=== PATIENT | male | born 1950 | race Caucasian/White ===

== ENCOUNTER 2018-05-21 20:15 | Emergency (ER) | payer MEDICARE, SELFPAY ==
[2018-05-21 20:16] VITALS: BP 133/74; PULSE 78; RESP 14; TEMP 36.8; O2SAT 95; BMI 26.9
[2018-05-21 21:24] LABS: Absolute Lymphocyte Count 0.83 X10^3/ul (0.83-4.51); Absolute Neutrophil Count 6.5 X10^3/uL (2.0-7.7); Basophil# 0.02 X10^3/uL; Basophil% 0.2 % (0-1); Eosinophils% 1.2 % (0-5); Hematocrit 33.3 % (40-54); Hemoglobin 11.1 g/dl (13.0-16.5); Lymphocyte # 0.83 X10^3/ul (4.0); Lymphocyte % 10.3 % (19-41); Mean Corp Hgb Conc 33.3 g/gl (32-36); Mean Corpuscular Hgb 29.4 pg (27.0-32.0); Mean Corpuscular Volume 88.3 fL (80-94); Mean Platelet Vol. 8.9 fl (6.2-12.0); Monocyte% 7.4 % (0-10); Neutrophil % 80.8 % (47-70); Platelet Count 324 K/mm3 (150-450); RBC Distribution Width CV 13.9 % (11.6-14.6); Red Blood Count 3.77 M/mm3 (4.6-6.2); White Blood Count 8.1 K/mm3 (4.4-11.0)
[2018-05-21 21:26] LABS: POSITIVE COUNT NO; POSITIVE DIFFERENTIAL NO; POSITIVE MORPHOLOGY NO
[2018-05-21 21:39] LABS: ALB/GLOB Ratio 0.9 RATIO (0.9-2.4); AST(SGOT) 7 U/L (15-37); Alanine Aminotransfer ALT/SGPT 14 U/L (16-61); Albumin, Serum 3.3 g/dL (3.2-5.0); Alkaline Phosphatase 62 U/L (45-117); Anion Gap 6 (5-15); BUN 14 mg/dL (7-18); BUN/Creat Ratio 17.9 RATIO (10-20); Calcium,Total 8.5 mg/dL (8.5-10.1); Chloride 98 mmol/L (98-107); Creatinine, Serum 0.78 mg/dL (0.70-1.30); EST Glomerular Filtration Rate 105 mL/min (>60); Est Glom Filt Rate - Afr Amer 127 mL/min (>60); Estimated Creatinine Clearance 83.34 ml/min; Globulin 3.6 g/dL (2.2-4.2); Glucose 98 mg/dL (74-106); Potassium 4.6 mmol/L (3.5-5.1); Protein, Total 6.9 g/dL (6.4-8.2); Sodium Level 133 mmol/L (136-145)
[2018-05-21] MEDS: Baclofen 10 MG Tablet 5 MG PO ×2 (21:53→22:43)
--- NOTE | 2018-05-21 22:27 | ED.DCSUM_ITS ---
- ER Visit Summary Date of Service: 05/21/18 Chief Complaint: Muscle spasms History of Present Illness: Patient presents with muscle spasms in the legs last night now he has some more spasms. These are chronic and recurrent secondary to what is thought to be radiation therapy, however they are worse than normal. No fever chills no chest pain shortness of breath no weakness or confusion. Physical Examination: Patient appears chronically ill, he has a regular rate and rhythm no respiratory distress he is a soft nontender abdomen. He has no back tenderness. He has no current spasms but demonstrated me what is present looks like, there is somewhat Coreform in nature. Emergency Department Course and Treatment: Patient has an unremarkable workup. He was given baclofen with significant improvement. He will be discharged in stable condition to follow-up with his neurologist. Discharge stable condition Impression: [Muscle spasms] This note was generated with [employer] dictation software. It may contain incorrect words, spelling, and punctuation that were not noted in review of the chart prior to signing ED Disposition - Plan for ED Patient: Disposition: Home or Assisted Living Chief Complaint: Upper Extremity Injury Instructions: Muscle Spasm Prescriptions: Baclofen 5 mg PO BID #20 tab Referrals: Brandan Pino MD [Primary Care Provider] - 3-5 Days
[2018-05-22 00:01] VITALS: BP 133/75; PULSE 97; RESP 14; O2SAT 97
[2018-05-22 00:02] VITALS: TEMP 36.8
[2018-05-22] MEDS: Orphenadrine 60 MG/2 ML Ampul 30 MG IM (00:33)
== END 2018-05-22 00:48 | disposition home or self-care (01) ==
PROVIDERS: Emergency Provider Emergency Medicine; Family Provider Family Medicine; PCP Family Medicine
DX: M62.838 Other muscle spasm (principal); M19.90 Unspecified osteoarthritis, unspecified site; Z72.0 Tobacco use
CPT/HCPCS: 80053; 85025; 96372; 99283

== ENCOUNTER 2018-05-30 18:03 | Inpatient (IN) | payer MEDICARE, SELFPAY ==
[2018-05-30] VITALS (10 sets, daily range): BP systolic 105–147; BP diastolic 71–90; PULSE 91–104; RESP 12–28; TEMP 36.5–36.6; O2SAT 80–98; BMI 26.9; BMI 27.0; BMI 28.0
--- NOTE | 2018-05-30 18:24 | EKG12_ITS ---
Test Reason : SOB Blood Pressure : / mmHG Vent. Rate : 090 BPM Atrial Rate : 090 BPM P-R Int : 188 ms QRS Dur : 074 ms QT Int : 352 ms P-R-T Axes : 044 -14 021 degrees QTc Int : 430 ms Normal sinus rhythm Low voltage QRS Inferior infarct , age undetermined Abnormal ECG Confirmed by PIETRO CIFUENTES, MANDY ([id number]), editor department BEE KIMBROUGH ([id number] on 06/01/2018 1:29:20 PM Referred By: Confirmed By:MANDY WESTBROOK MD
--- NOTE | 2018-05-30 18:29 | ED.DCSUM_ITS ---
- ER Visit Summary Date of Service: 05/30/18 Chief Complaint: Shortness of breath History of Present Illness: The patient is a 67 M presenting with shortness of breath. He states this has been ongoing for the past week it has been worse today. He states he is also coughing up blood. He denies chest pain or chest pressure. Denies fever. He has a history of throat cancer status post radiation and chemotherapy. He is in remission. He is on Plavix. He denies hematemesis or melena. Physical Examination: Vitals are stable. Pulse ox 80% on room air. Patient is afebrile. Alert no acute distress. HEENT exam is unremarkable. Neck is supple. Lungs are rhonchorous bilaterally. Heart is regular rate and rhythm. Abdomen is soft nontender nondistended. Extremities are unremarkable. No edema Skin is warm and dry. No focal neurologic deficit. Remainder of exam is unremarkable. Emergency Department Course and Treatment: He is given albuterol, Atrovent aerosols. CBC shows hemoglobin 9.7. Chemistries show sodium 131. Troponin is negative. Lactic acid is normal. Blood cultures were sent. Chest x-ray shows left-sided infiltrate. He was given Rocephin and Zithromax IV. Discussed with the hospitalist for admission. Disposition: Admission Impression: Community acquired pneumonia, hypoxia This note was generated with [employer] dictation software. It may contain incorrect words, spelling, and punctuation that were not noted in review of the chart prior to signing ED Disposition - Plan for ED Patient: Chief Complaint: Shortness of Breath Referrals: Brandan Pino MD [Primary Care Provider] -
[2018-05-30] MEDS: Ipratropium/Albuterol Sulfate 3 ML AMPUL.NEB INHALATION (18:32)
[2018-05-30] MEDS: Albuterol 2.5 MG/3 ML VIAL.NEB. INHALATION ×3 (18:32→18:59)
--- NOTE | 2018-05-30 18:35 | RAD_ITS ---
STUDY: X-RAY CHEST REASON FOR EXAM: Male, 67 years old. Chest pain TECHNIQUE: AP portable COMPARISON: None. FINDINGS: Lungs are hyperinflated and there is diffuse interstitial thickening in the mid and lower lung zones with emphysematous changes in the upper lobes. There is asymmetrically increased density in the left upper lobe and lingula peripherally possibly representing focal infiltrate. There is no demonstrated pleural abnormality. Normal size heart. Normal mediastinum and juan. Normal visualized pulmonary arteries. Mildly calcified aortic arch and descending thoracic aorta. Normal visualized thoracic spine. Normal visualized ribs, clavicles, and shoulders. There is no demonstrated abnormality of the visualized soft tissue structures of the upper abdomen. RAD/Chest 1 View (Portable) IMPRESSION: COPD. Increased density peripherally in the left upper lobe and lingula possibly representing focal infiltrate. CT would be useful for more definitive evaluation Electronically Signed: Brandan Walters MD at 19:13 EDT , Service support ,
[2018-05-30 18:49] LABS: Absolute Lymphocyte Count 0.54 X10^3/ul (0.83-4.51); Absolute Neutrophil Count 5.7 X10^3/uL (2.0-7.7); Basophil# 0.02 X10^3/uL; Basophil% 0.3 % (0-1); Eosinophil# 0.13 X10^3/uL; Eosinophils% 1.8 % (0-5); Hematocrit 30.1 % (40-54); Hemoglobin 9.7 g/dl (13.0-16.5); Lymphocyte # 0.54 X10^3/ul (4.0); Lymphocyte % 7.6 % (19-41); Mean Corp Hgb Conc 32.2 g/gl (32-36); Mean Corpuscular Hgb 28.9 pg (27.0-32.0); Mean Corpuscular Volume 89.6 fL (80-94); Mean Platelet Vol. 8.6 fl (6.2-12.0); Monocyte# 0.65 X10^3/uL; Monocyte% 9.2 % (0-10); Neutrophil # 5.69 X10^3/uL (2.7-7.7); Neutrophil % 80.7 % (47-70); Platelet Count 311 K/mm3 (150-450); RBC Distribution Width CV 14.4 % (11.6-14.6); RBC Distribution Width SD 46.7 fl (35.1-43.9); Red Blood Count 3.36 M/mm3 (4.6-6.2); White Blood Count 7.1 K/mm3 (4.4-11.0)
[2018-05-30 18:50] LABS: Differential Indicated SCAN CRITERIA MET; POSITIVE COUNT NO; POSITIVE DIFFERENTIAL YES; POSITIVE MORPHOLOGY NO
[2018-05-30 18:56] LABS: Prothrombin Time (Protime)PT. 13.6 SECONDS (11.7-14.9)
[2018-05-30 18:57] LABS: Partial Thromboplast Time 37.7 Seconds (24.1-36.2)
[2018-05-30 19:02] LABS: Lactic Acid 1.4 mmol/L (0.4-2.0)
[2018-05-30 19:04] LABS: Anion Gap 6 (5-15); BUN 11 mg/dL (7-18); BUN/Creat Ratio 13.6 RATIO (10-20); Calcium,Total 8.2 mg/dL (8.5-10.1); Chloride 97 mmol/L (98-107); Creatinine, Serum 0.81 mg/dL (0.70-1.30); EST Glomerular Filtration Rate 101 mL/min (>60); Est Glom Filt Rate - Afr Amer 122 mL/min (>60); Estimated Creatinine Clearance 102.89 ml/min; Glucose 101 mg/dL (74-106); Potassium 4.1 mmol/L (3.5-5.1); Sodium Level 131 mmol/L (136-145)
[2018-05-30 19:32] LABS: Bacteria 0 SEEN /hpf (None Seen); Mucous, Urine 0 SEEN /hpf (<or=2+); Red Blood Cells-Urine 0 SEEN /hpf (0-5); White Blood Cells 0 SEEN /hpf (0-5)
--- NOTE | 2018-05-30 19:39 | HP.PCM_ITS ---
Problem List (1) Pneumonia Status: Acute Qualifiers: Pneumonia type: due to unspecified organism Laterality: left Lung location: upper lobe of lung Qualified Code(s): J18.1 - Lobar pneumonia, unspecified organism (2) Anemia Status: Acute Qualifiers: Anemia type: iron deficiency (3) Hemoptysis, unspecified Status: Acute (4) Throat cancer Status: Chronic (5) HTN (hypertension) Status: Chronic Qualifiers: Hypertension type: essential hypertension Qualified Code(s): I10 - Essential (primary) hypertension (6) HLD (hyperlipidemia) Status: Chronic Qualifiers: Hyperlipidemia type: unspecified Qualified Code(s): E78.5 - Hyperlipidemia, unspecified (7) Hypothyroidism Status: Chronic Qualifiers: Hypothyroidism type: unspecified Qualified Code(s): E03.9 - Hypothyroidism, unspecified (8) Chronic pain syndrome Status: Chronic (9) Carotid arterial disease Status: Chronic Qualifiers: Carotid artery disease type: unspecified Laterality: left Qualified Code(s): I77.9 - Disorder of arteries and arterioles, unspecified (10) TIA (transient ischemic attack) Status: Chronic (11) Oropharyngeal dysphagia Status: Chronic History of Present Illness Date of Admission: 05/30/18 Chief Complaint: Cough, dyspnea, hemoptysis The patient is a 67 /o M w/ PMHx: Chronic Pain Syndrome, History of Throat CA s/p chemotherapy and radiation remotely noting he has been in remission, Prior TIA versus CVA without deficits, Chronic Normocytic Anemia, HTN, HLD, Anxiety and Depression, Hypothyroidism, Carotid Disease s/p L CEA ~ 1.5 years prior to current presentation who presents to the [facility] ED on 05/30/18 with history of progressively worsening dyspnea, mildly productive cough w/ bright red blood tinged sputum, worse with increased exertion without any associated fever or chills. Work-up in the ED included T 98, heart rate 104, BP 147/90, respiratory rate initially 28-->12, 80% on room air--> 93% on 2 L nasal cannula, CBC with WBC 7.1, hemoglobin 9.7, platelet 311 with left shift, coags with PT 13.6, INR 1, PTT 37.7, BMP with sodium 131, chloride 97, lactic acid 1.4, troponin <0.015, Bld Cx pending, chest x-ray with chronic COPD changes, increased density peripheral in the left upper lobe and lingula suspicious for infiltrate. In the ED patient administered dunoebs, albuterol, rocephin and azithromycin. Past Medical History Past Medical History (Chronic Problems): Chronic Problems HTN (hypertension) (Chronic) HLD (hyperlipidemia) (Chronic) Hypothyroidism (Chronic) Chronic pain syndrome (Chronic) Carotid arterial disease (Chronic) TIA (transient ischemic attack) (Chronic) Oropharyngeal dysphagia (Chronic) Throat cancer (Chronic) Allergies No Known Allergies Allergy (Verified 05/21/18 20:18) Home Medications: Ambulatory Orders Medication Instructions Recorded Acetaminophen Liquid [Tylenol 5 ml PO DAILY 05/30/18 Liquid] Albuterol Aerosols [Ventolin 2.5 mg INHALATION Q4HWA.RT 05/30/18 Aerosols] Aspirin/Sod Bicarb/Citric Acid 324 mg PO DAILY 05/30/18 [Connie[place] Blue Tab Eff] Atorvastatin Calcium [Lipitor] 40 mg PO DAILY 05/30/18 Baclofen 5 mg PO BID 05/30/18 Carbamazepine [Carbamazepine ER] 100 mg PO QHS 05/30/18 Clopidogrel Bisulfate [Plavix] 75 mg PO DAILY 05/30/18 Ferrous Sulfate 325 mg PO DAILY 05/30/18 Fluticasone 0.05% [Flonase Nasal 2 spray NASAL DAILY 05/30/18 [place]] Gabapentin 6 ml PO QHS 05/30/18 Levothyroxine [Synthroid] 75 mcg PO DAILY 05/30/18 Lisinopril [Zestril] 40 mg PO DAILY 05/30/18 Mirtazapine 15 mg PO QHS 05/30/18 Oxycodone [Oxyir] 10 - 20 mg PO TID 05/30/18 Sertraline HCl [Zoloft] 200 mg PO DAILY 05/30/18 Psychiatric History: Anxiety, Depression Lives: Spouse/ Significant Other Smoking Status: Current every day smoker Tobacco Use: Cigarettes - 1 ppd since teen. Alcohol: Occasional - 1-2 shots crown daily. Drugs: None - *Family History Maternal History Items: - - Patient notes a paternal family history of hypertension and dementia. Paternal History Items: - - Patient notes a paternal family history of diabetes, hypertension, heart disease. Review of Systems Constitutional: Reports: Anorexia, Malaise, Weakness, Fatigue. Denies: Chills, Fever, Weight Change HEENT: Denies: Head Aches, Sinus Congestion, Sinus Drainage Cardiovascular: Denies: Chest Pain, Palpitations Respiratory: Reports: Cough, Hemoptysis, Shortness of Breath, Shortness of breath at rest, Shortness of breath upon exertion, Sputum production Gastrointestinal: Denies: Abdominal Pain, Nausea, Vomiting Genitourinary: Denies: Dysuria Musculoskeletal: Reports: Back Pain. Denies: Joint Pain, Joint Tenderness Skin: Denies: Rash, Wounds Neurological: Denies: Numbness, Tingling, Focal weakness Psychiatric: Reports: Anxiety, Depression. Denies: Homicidal Ideations, Suicidal Ideations Hematologic/ Lymphatic: Reports: Anemia, Easy Bruising, Easy Bleeding VTE Information - Inpt Only VTE Present on Admission: No VTE Mechan Device Prophylaxis: SCD's VTE Pharm Prophylaxis ordered?: No Patient Problems: Active and Suspected Problems Pneumonia (Acute) Hemoptysis, unspecified (Acute) Anemia (Acute) Subjective: Seated upright in the ED bed, mildly fatigued appearance, NAD. Objective: Physical Examination: General: awake, alert, oriented x 3 and cooperative, seated upright in the ED bed, improved from initial appearance, had prior conversational dyspnea, tachypnea and accessory muscle usage per ED, improved now. Skin: normal color, turgor, no icterus, cyanosis. HEENT: AT/NC, EOMI, PERRLA, mildly dry MM, no carotid bruits or JVD noted. Lungs: Decreased BS BL bases, coarse, mild effort, occasional end expiratory wheeze noted, improved respiratory status, prior per ED upon presentation increased RR, accessory muscle usage and accessory muscle usage. Heart: regular rate and rhythm; no gallop, rub audible. Abdomen: soft, overweight, NTTP, ND, normal BS, no HSM. Extremities: no cyanosis, clubbing, BL LE mild ankle edema. Neurological: patient awake, alert, oriented x 3; cognitive function intact; pupils equally reactive to light and accomodation; cranial nerves II-XII grossly normal, moving all 4 extremities, no focal deficits, strength moderately to severely globally decreased. Psychiatric: affect appears mildly fatigued, no acute evidence of depressive or anxiety feelings. - Physical Exam Vital Signs Temp Pulse Resp BP Pulse Ox 98 F 95 12 127/84 H 93 05/30/18 18:04 05/30/18 19:00 05/30/18 19:00 05/30/18 18:14 05/30/18 18:14 Oxygen Flow Rate (L/min) 2 Oxygen Delivery Method Nasal Cannula Weight: 210 lb Body Mass Index (BMI) 26.9 Laboratory Tests Past 24 Hrs 05/30/18 05/30/18 05/30/18 18:26 18:26 18:26 WBC 7.1 RBC 3.36 L Hgb 9.7 L Hct 30.1 L MCV 89.6 MCH 28.9 MCHC 32.2 RDW 14.4 RDW Differential 46.7 H Plt Count 311 MPV 8.6 Immature Gran % (Auto) 0.400 Neut % (Auto) 80.7 H Lymph % (Auto) 7.6 L [place] % (Auto) 9.2 Eos % (Auto) 1.8 Baso % (Auto) 0.3 Absolute Neuts (auto) 5.7 Absolute Lymphs (auto) 0.54 L Total Counted Pending PT 13.6 INR 1.0 APTT 37.7 H Sodium 131 L Potassium 4.1 Chloride 97 L Carbon Dioxide 28.0 Anion Gap 6 BUN 11 Creatinine 0.81 Estim Creat Clear Calc 102.89 Est GFR (MDRD) Af Amer 122 Est GFR (MDRD) Non-Af 101 BUN/Creatinine Ratio 13.6 Glucose 101 Lactic Acid Calcium 8.2 L Troponin I < 0.015 05/30/18 18:26 WBC RBC Hgb Hct MCV MCH MCHC RDW RDW Differential Plt Count MPV Immature Gran % (Auto) Neut % (Auto) Lymph % (Auto) [place] % (Auto) Eos % (Auto) Baso % (Auto) Absolute Neuts (auto) Absolute Lymphs (auto) Total Counted PT INR APTT Sodium Potassium Chloride Carbon Dioxide Anion Gap BUN Creatinine Estim Creat Clear Calc Est GFR (MDRD) Af Amer Est GFR (MDRD) Non-Af BUN/Creatinine Ratio Glucose Lactic Acid 1.4 Calcium Troponin I Assessment/Plan All Active Problems Pneumonia (Acute) Hemoptysis, unspecified (Acute) Anemia (Acute) Spasm (Acute) The patient is a 67 /o M w/ PMHx: Chronic Pain Syndrome, History of Throat CA s/p chemotherapy and radiation remotely noting he has been in remission, Prior TIA versus CVA without deficits, Chronic Normocytic Anemia, HTN, HLD, Anxiety and Depression, Hypothyroidism, Carotid Disease s/p L CEA ~ 1.5 years prior to current presentation who presents to the [facility] ED on 05/30/18 with history of progressively worsening dyspnea, mildly productive cough w/ bright red blood tinged sputum, worse with increased exertion without any associated fever or chills. (1) Acute Hypoxic Respiratory Failure secondary to ? CAP w/ hemoptysis w/ underlying throat CA history s/p radiation w/ Suspected Malignancy given presentation: ED included T 98, heart rate 104, BP 147/90, respiratory rate initially 28-->12, 80% on room air--> 93% on 2 L nasal cannula, CBC with WBC 7.1, hemoglobin 9.7, platelet 311 with left shift, coags with PT 13.6, INR 1, PTT 37.7, BMP with sodium 131, chloride 97, lactic acid 1.4, troponin <0.015, Bld Cx pending, chest x-ray with chronic COPD changes, increased density peripheral in the left upper lobe and lingula suspicious for infiltrate. Will admit to [facility], maintain on oxygen with wean as tolerated to room air, continue ATC duonebs, PRN albuterol, maintained on IV Rocephin and Azithromycin pending CT scan as more suspicious for possible metastatic disease given history and presentation, HOB, IS parameters w/ pending sputum cultures and urine antigens as well as respiratory panel. Bld cx x 2 obtained in the ED. Given history of throat CA, suspicious presentation for malignancy given afebrile, no marked WBC elevation, Hgb decrease w/ hemoptysis on Plavix thus will hold plavix and obtain CT chest to further evaluate as there is concern for possible recurrence given presentation. (2) Normocytic Anemia, Acute on Chronic, Fe Deficiency Anemia: Admission Hgb 9.7, most recent prior 05/21/18 11.1, poor intake recently, will hydrate, repeat Hgb in AM, monitor #1, holding plavix as noted. Continue home Fe supplementation. (3) Chronic Oropharyngeal Dysphagia: Notes secondary to radiation some difficulty with certain solids, declined mechanical soft, continue liquid versions per his home regimen, speech consulted. (4) Anxiety and Depression: Maintain on home sertraline, Valium, mirtazapine regimen. (5) Chronic pain syndrome: Maintain on home baclofen, gabapentin, Valium, oxycodone regimen. (6) Hypothyroidism: Continue home synthroid regimen. (7) Hypertension: Continue home regimen including lisinopril, PRN hydralazine. (8) Hyperlipidemia: Continue home statin regimen. (9) Carotid Disease: s/p R CEA 1.5 years prior, holding plavix, continue BP regimen, statin. (10) History TIA versus CVA: Holding plavix, continue BP regimen and statin. (11) Tobacco Abuse: Encouraged cessation, inpatient consultation per RT, NR if desired. (12) DVT Prophylaxis: SCDs, defer chemoprophylaxis given hemoptysis. Code Visit Inpatient E&M: 87033 Init Hosp L3
[2018-05-30 19:54] LABS: Differential Comment SCANNED
[2018-05-30] MEDS: Ceftriaxone 1 GM/50 ML BAG IV (19:54)
[2018-05-30 19:57] LABS: Color, Urine Yellow (Yellow); Glucose, Dipstick Normal (Normal); Ketone-Dipstick Negative (Negative); Leukocyte Esterase-Dipstick 25 /ul (Negative); Nitrite-Dipstick Negative (Negative); Occult Blood-Urine Negative /ul (Negative); Protein-Dipstick 15 mg/dl (Negative); Urine Bilirubin Dipstick Negative (Negative); Urine Clarity Clear (Clear); Urine Urobilinogen Normal (Normal)
[2018-05-30 20:09] LABS: Squamous Epithelial Cells - UA 0-5 SEEN /hpf (0-5)
--- NOTE | 2018-05-30 20:45 | CT_ITS ---
STUDY: CT CHEST WITHOUT CONTRAST REASON FOR EXAM: Male, 67 years old. Dyspnea and hemoptysis RADIATION DOSAGE (If Supplied By Facility): CTDIvol = ( 14.77 ) mGy, DLP = ( 631.29 ) mGycm TECHNIQUE: Transaxial imaging was performed without the administration of intravenous contrast material. Individualized dose optimization techniques were used for this CT. COMPARISON: None. FINDINGS: Narrowed glottic airway in association with thickening of the vocal cords greater on the right There is mild interstitial thickening most pronounced in the lower lobes with patchy areas of groundglass opacity in association with thickening of the bronchial maldonado in the lower lobes.. There is no demonstrated pleural abnormality. The heart is enlarged. There is a large masslike density within the lingula extending into and infiltrating the left hilum and mid mediastinum highly suspicious for neoplasm with distal obstructive atelectasis.. Normal unenhanced pulmonary arteries. Atherosclerotic changes of the aorta without evidence for aneurysm. Dorsal spine demonstrates spondylosis Small hiatal hernia is present Tiny cyst noted within the left lobe of the liver. Nonspecific splenomegaly CT/Chest without Contrast IMPRESSION: Chronic interstitial and emphysematous changes. Large infiltrative masslike density within the superior lingula extending into an infiltrating the left hilum and mid mediastinum consistent with neoplasm and possible distal obstructive atelectasis.. Clinical correlation recommended Electronically Signed: Brandan Walters MD at 23:00 EDT , Service support ,
[2018-05-30 21:26] LABS: Ferritin 48 ng/mL (26-388); Iron 220 ug/dL (65-175); Iron Binding Capacity,Total 296 ug/dL (250-450); Magnesium 1.9 mg/dL (1.6-2.6); PERCENT IRON SATURATION 74.3 % (15.0-55.0); Phosphorus 3.5 mg/dL (2.5-4.9)
[2018-05-30 21:46] LABS: Vitamin B12 655 pg/mL (211-911)
[2018-05-30] MEDS: guaiFENesin 1,200 MG Tablet 1200 MG PO (22:31)
[2018-05-30] MEDS: Mirtazapine 15 MG Tablet PO (22:32)
[2018-05-30] MEDS: Baclofen 10 MG Tablet 5 MG PO (22:32)
[2018-05-30] MEDS: Atorvastatin Calcium 40 MG Tablet PO (22:32)
[2018-05-30] MEDS: Famotidine 20 MG Tablet PO (22:32)
[2018-05-30] MEDS: 0.9% Normal Saline 1,000 ML 125 ML IV (22:33)
[2018-05-30] MEDS: oxyCODONE 5 MG Tablet PO (23:28)
[2018-05-30] MEDS: GABAPENTIN 250 MG/5 ML SOLUTION 300 MG PO (23:45)
[2018-05-31] MEDS: Albuterol 2.5 MG/3 ML VIAL.NEB. INHALATION (01:28)
[2018-05-31 01:30] VITALS: PULSE 71; RESP 16; O2SAT 94
[2018-05-31 04:30] VITALS: BP 105/55; PULSE 72; RESP 18; TEMP 36.2; O2SAT 94
[2018-05-31] MEDS: Levothyroxine 75 MCG Tablet PO (06:08)
[2018-05-31] MEDS: 0.9% Normal Saline 1,000 ML 125 ML IV ×3 (06:08→23:17)
[2018-05-31] MEDS: oxyCODONE 5 MG Tablet PO ×3 (06:08→21:09)
[2018-05-31 07:01] LABS: Absolute Lymphocyte Count 0.45 X10^3/ul (0.83-4.51); Absolute Neutrophil Count 4.7 X10^3/uL (2.0-7.7); Basophil# 0.02 X10^3/uL; Basophil% 0.3 % (0-1); Eosinophil# 0.15 X10^3/uL; Eosinophils% 2.5 % (0-5); Hematocrit 27.8 % (40-54); Hemoglobin 8.8 g/dl (13.0-16.5); Lymphocyte # 0.45 X10^3/ul (4.0); Lymphocyte % 7.6 % (19-41); Mean Corp Hgb Conc 31.7 g/gl (32-36); Mean Corpuscular Hgb 29.5 pg (27.0-32.0); Mean Corpuscular Volume 93.3 fL (80-94); Mean Platelet Vol. 8.7 fl (6.2-12.0); Monocyte# 0.55 X10^3/uL; Monocyte% 9.3 % (0-10); Neutrophil # 4.67 X10^3/uL (2.7-7.7); Neutrophil % 79.5 % (47-70); Platelet Count 319 K/mm3 (150-450); RBC Distribution Width CV 14.2 % (11.6-14.6); RBC Distribution Width SD 46.4 fl (35.1-43.9); Red Blood Count 2.98 M/mm3 (4.6-6.2); White Blood Count 5.9 K/mm3 (4.4-11.0)
[2018-05-31 07:02] LABS: Differential Indicated SCAN CRITERIA MET; POSITIVE COUNT NO; POSITIVE DIFFERENTIAL YES; POSITIVE MORPHOLOGY NO
[2018-05-31 07:08] LABS: Differential Comment SCANNED
[2018-05-31 07:13] LABS: Anion Gap 9 (5-15); BUN 11 mg/dL (7-18); BUN/Creat Ratio 15.2 RATIO (10-20); Calcium,Total 8.1 mg/dL (8.5-10.1); Chloride 102 mmol/L (98-107); Creatinine, Serum 0.72 mg/dL (0.70-1.30); EST Glomerular Filtration Rate 115 mL/min (>60); Est Glom Filt Rate - Afr Amer 139 mL/min (>60); Estimated Creatinine Clearance 83.34 ml/min; Glucose 95 mg/dL (74-106); Potassium 4.7 mmol/L (3.5-5.1); Sodium Level 138 mmol/L (136-145)
[2018-05-31 07:33] VITALS: O2SAT 94
[2018-05-31 08:18] VITALS: BP 116/62; PULSE 88; RESP 18; TEMP 36.8; O2SAT 95
--- NOTE | 2018-05-31 08:23 | PCM.CONS.GEN ---
Reason for Consult Date of Consultation: 05/31/18 Reason for Consultation: Lung mass History of Present Illness: The patient is a 67-year-old male, with a history as outlined below, who presented to the emergency department on May 30 with complaints of progressive dyspnea and hemoptysis. The patient does have a history of head/neck cancer, for which he is status post chemoradiation. He also has a history of bilateral carotid artery stenosis and is status post left-sided carotid endarterectomy. He is on Plavix as an outpatient. The patient reports that his head and neck cancer has been in remission and he was last seen by his oncologist approximately 6 or 7 years ago at the [facility]. The patient does have an active smoking history of 1 pack/day x 50 years. He also drinks hard liquor daily. 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 He does have baseline exertional shortness of breath, but is never been evaluated by a truck driver heavy, nor has he ever undergone pulmonary function testing previously. He does not utilize any maintenance inhalers at his baseline. He reports that over the last week he has noticed blood streaked sputum and worsening shortness of breath. On presentation to the emergency department, the patient was noted to be afebrile and hemodynamically stable. Laboratory evaluation revealed evidence of a normocytic anemia without evidence of leukocytosis. INR was noted be 1.0. Chemistry profile was notable for a sodium of 131 and a chloride of 97. Serum lactate was within normal limits. Urinalysis revealed no evidence concerning for infection. Plain film chest imaging revealed findings concerning for a lingula/left upper lobe airspace opacity. A follow-up CT chest without contrast was obtained which revealed bilateral emphysematous changes and a masslike density within the lingula with extension into the hilum. The patient was started on aerosol treatments along with ceftriaxone and azithromycin. He was subsequently admitted to the medical surgical floor for further evaluation. Past Medical History Past Medical History (Chronic Problems): Chronic Problems HTN (hypertension) (Chronic) HLD (hyperlipidemia) (Chronic) Hypothyroidism (Chronic) Chronic pain syndrome (Chronic) Carotid arterial disease (Chronic) TIA (transient ischemic attack) (Chronic) Oropharyngeal dysphagia (Chronic) Throat cancer (Chronic) Allergies No Known Allergies Allergy (Verified 05/21/18 20:18) Home Medications: Ambulatory Orders Medication Instructions Recorded Acetaminophen Liquid [Tylenol 5 ml PO DAILY 05/30/18 Liquid] Albuterol Aerosols [Ventolin 2.5 mg INHALATION Q4HWA.RT 05/30/18 Aerosols] Aspirin/Sod Bicarb/Citric Acid 324 mg PO DAILY 05/30/18 [[place] Blue Tab Eff] Atorvastatin Calcium [Lipitor] 40 mg PO DAILY 05/30/18 Baclofen 5 mg PO BID 05/30/18 Carbamazepine [Carbamazepine ER] 100 mg PO QHS 05/30/18 Clopidogrel Bisulfate [Plavix] 75 mg PO DAILY 05/30/18 Ferrous Sulfate 325 mg PO DAILY 05/30/18 Fluticasone 0.05% [Flonase Nasal 2 spray NASAL DAILY 05/30/18 [place]] Gabapentin 6 ml PO QHS 05/30/18 Levothyroxine [Synthroid] 75 mcg PO DAILY 05/30/18 Lisinopril [Zestril] 40 mg PO DAILY 05/30/18 Mirtazapine 15 mg PO QHS 05/30/18 Oxycodone [Oxyir] 10 - 20 mg PO TID 05/30/18 Sertraline HCl [Zoloft] 200 mg PO DAILY 05/30/18 Psychiatric History: Anxiety, Depression Lives: Spouse/ Significant Other Smoking Status: Current every day smoker Tobacco Use: Cigarettes - 1 ppd since teen. Alcohol: Occasional - 1-2 shots crown daily. Drugs: None - *Family History Maternal History Items: - - Patient notes a paternal family history of hypertension and dementia. Paternal History Items: - - Patient notes a paternal family history of diabetes, hypertension, heart disease. Review of Systems Constitutional: Denies: Chills, Fever Eyes: Denies: Blurred vision, Double vision HEENT: Denies: Head Aches, Sinus Congestion, Sinus Drainage Cardiovascular: Denies: Chest Pain, Palpitations Respiratory: Reports: Cough, Hemoptysis, Shortness of Breath Gastrointestinal: Denies: Abdominal Pain, Nausea, Vomiting Genitourinary: Denies: Dysuria Musculoskeletal: Denies: Joint Pain, Joint Tenderness Skin: Denies: Rash, Wounds Neurological: Denies: Numbness, Tingling, Focal weakness Psychiatric: Denies: Anxiety, Depression, Homicidal Ideations, Suicidal Ideations Hematologic/ Lymphatic: Denies: Easy Bruising, Easy Bleeding Patient Problems: Active and Suspected Problems Pneumonia (Acute) Hemoptysis, unspecified (Acute) Anemia (Acute) Objective: The patient's most recent lab work, culture data and imaging studies have all been personally reviewed. - Physical Exam General: Alert, Oriented x3, Cooperative, No apparent distress HEENT: Atraumatic, PERRLA, Normocephalic Oral: No Gingival or Mucosal Lesions/ Ulcerations Neck: Supple, No Nodes, Trachea Midline Lungs: No rales, Diminished, Rhonchi, Wheezes Cardiovascular: Regular rate, Regular Rhythm, Normal S1, Normal S2, No murmurs Abdomen: Bowel Sounds Present, Soft, Non Tender, Non-Distended Extremities: No clubbing, No cyanosis, No edema Skin: No breakdown Musculoskeletal: No Tenderness to Palpation of Joints or Extremities, No Muscle Wasting Lymphatic: No Cervical, Supraclavicular, or Inguinal Adenopathy Neurological: Cranial nerves II-XII grossly intact, Neuro grossly intact Psych/Mental Status: Alert and oriented to time, place, person, mood and affect Vital Signs Temp Pulse Resp BP Pulse Ox 98.2 F 88 18 116/62 95 05/31/18 08:18 05/31/18 08:18 05/31/18 08:18 05/31/18 08:18 05/31/18 08:18 Oxygen Flow Rate (L/min) 3 Oxygen Delivery Method Room Air Weight: 218 lb 2 oz Body Mass Index (BMI) 28.0 Intake and Output for Last 24 Hours 05/29/18 05/30/18 05/31/18 23:59 23:59 23:59 Intake Total 613 / 613 613 / 613 Output Total 275 / 275 1100 / 1100 Balance 338 / 338 -487 / -487 Microbiology Past 72 Hours 05/30/18 21:50 Respiratory Panel (PCR) - Final Mucosa - Nasopharyngeal 05/30/18 21:49 Legionella Antigen - Final Interface Orders 05/30/18 21:49 Streptococcus pneumoniae Antigen (M - Final Interface Orders Laboratory Tests Past 24 Hrs 05/30/18 05/30/18 05/30/18 18:26 18:26 18:26 WBC 7.1 RBC 3.36 L Hgb 9.7 L Hct 30.1 L MCV 89.6 MCH 28.9 MCHC 32.2 RDW 14.4 RDW Differential 46.7 H Plt Count 311 MPV 8.6 Immature Gran % (Auto) 0.400 Neut % (Auto) 80.7 H Lymph % (Auto) 7.6 L [place] % (Auto) 9.2 Eos % (Auto) 1.8 Baso % (Auto) 0.3 Absolute Neuts (auto) 5.7 Absolute Lymphs (auto) 0.54 L Total Counted Not Reportable Differential Comment SCANNED PT 13.6 INR 1.0 APTT 37.7 H Sodium 131 L Potassium 4.1 Chloride 97 L Carbon Dioxide 28.0 Anion Gap 6 BUN 11 Creatinine 0.81 Estim Creat Clear Calc 102.89 Est GFR (MDRD) Af Amer 122 Est GFR (MDRD) Non-Af 101 BUN/Creatinine Ratio 13.6 Glucose 101 Lactic Acid Calcium 8.2 L Phosphorus Magnesium Iron TIBC Iron Saturation Ferritin Troponin I < 0.015 Vitamin B12 Folate Urine Color Urine Clarity Urine pH Ur Specific [place] Urine Protein Urine Glucose (UA) Urine Ketones Urine Occult Blood Urine Nitrite Urine Bilirubin Urine Urobilinogen Ur Leukocyte Esterase Urine RBC Urine WBC Ur Squamous Epith Cells Urine Bacteria Urine Mucus 05/30/18 05/30/18 05/30/18 18:26 18:26 18:26 WBC RBC Hgb Hct MCV MCH MCHC RDW RDW Differential Plt Count MPV Immature Gran % (Auto) Neut % (Auto) Lymph % (Auto) [place] % (Auto) Eos % (Auto) Baso % (Auto) Absolute Neuts (auto) Absolute Lymphs (auto) Total Counted Differential Comment PT INR APTT Sodium Potassium Chloride Carbon Dioxide Anion Gap BUN Creatinine Estim Creat Clear Calc Est GFR (MDRD) Af Amer Est GFR (MDRD) Non-Af BUN/Creatinine Ratio Glucose Lactic Acid 1.4 Calcium Phosphorus 3.5 Magnesium 1.9 Iron 220 H TIBC 296 Iron Saturation 74.3 H Ferritin 48 Troponin I Vitamin B12 655 Folate 7.90 Urine Color Urine Clarity Urine pH Ur Specific [place] Urine Protein Urine Glucose (UA) Urine Ketones Urine Occult Blood Urine Nitrite Urine Bilirubin Urine Urobilinogen Ur Leukocyte Esterase Urine RBC Urine WBC Ur Squamous Epith Cells Urine Bacteria Urine Mucus 05/30/18 05/31/18 05/31/18 19:25 05:58 05:58 WBC 5.9 RBC 2.98 L Hgb 8.8 L Hct 27.8 L MCV 93.3 MCH 29.5 MCHC 31.7 L RDW 14.2 RDW Differential 46.4 H Plt Count 319 MPV 8.7 Immature Gran % (Auto) 0.800 Neut % (Auto) 79.5 H Lymph % (Auto) 7.6 L [place] % (Auto) 9.3 Eos % (Auto) 2.5 Baso % (Auto) 0.3 Absolute Neuts (auto) 4.7 Absolute Lymphs (auto) 0.45 L Total Counted Not Reportable Differential Comment SCANNED PT INR APTT Sodium 138 Potassium 4.7 Chloride 102 Carbon Dioxide 27.0 Anion Gap 9 BUN 11 Creatinine 0.72 Estim Creat Clear Calc 83.34 Est GFR (MDRD) Af Amer 139 Est GFR (MDRD) Non-Af 115 BUN/Creatinine Ratio 15.2 Glucose 95 Lactic Acid Calcium 8.1 L Phosphorus Magnesium Iron TIBC Iron Saturation Ferritin Troponin I Vitamin B12 Folate Urine Color Yellow Urine Clarity Clear Urine pH 5.0 Ur Specific [place] 1.020 Urine Protein 15 H Urine Glucose (UA) Normal Urine Ketones Negative Urine Occult Blood Negative Urine Nitrite Negative Urine Bilirubin Negative Urine Urobilinogen Normal Ur Leukocyte Esterase 25 H Urine RBC 0 SEEN Urine WBC 0 SEEN Ur Squamous Epith Cells 0-5 SEEN Urine Bacteria 0 SEEN Urine Mucus 0 SEEN Clinical Impression(s) from Imaging Studies Chest X-Ray 05/30/18 18:35 IMPRESSION: COPD. Increased density peripherally in the left upper lobe and lingula possibly representing focal infiltrate. CT would be useful for more definitive evaluation Electronically Signed: Brandan Walters MD at 19:13 EDT , Service support , Chest CT 05/30/18 20:45 IMPRESSION: Chronic interstitial and emphysematous changes. Large infiltrative masslike density within the superior lingula extending into an infiltrating the left hilum and mid mediastinum consistent with neoplasm and possible distal obstructive atelectasis.. Clinical correlation recommended Electronically Signed: Brandan Walters MD at 23:00 EDT , Service support , Assessment/Plan All Active Problems Pneumonia (Acute) Hemoptysis, unspecified (Acute) Anemia (Acute) Spasm (Acute) RECOMMENDATIONS: 1. Continue antibiotics, pending infectious workup. 2. Continue scheduled bronchodilators. 3. Continue nicotine replacement therapy. 4. At the current time, the patient is not wishing to entertain the idea of any additional workup for his abnormal chest imaging. IMPRESSIONS: 1. Shortness of breath and hemoptysis The patient has a previous history of head neck cancer and is a longtime smoker of approximately 50 pack years. The patient's chest CT did reveal findings concerning for a possible lingular mass with infiltration into the left hilum. Given the patient's prior cancer history combined with his continued tobacco utilization, these findings are certainly worrisome. However, the patient does utilize Plavix on a daily basis. I explained these findings to the patient and advocated for further workup, which would likely include an airway evaluation via bronchoscopy. However, the patient made it very clear to me that he had already survived cancer once and he did not intend to go through it a second time. He therefore indicated to me that he would not be interested in pursuing additional workup at this time, including bronchoscopy and biopsy. I did explain to him that if we did pursue an invasive outpatient workup, that he would have to hold his Plavix for 5 days prior to the procedure. At this point, he stated that he would think about it, but did not wish to pursue with any scheduling at this time. In addition to the above, the patient may certainly have an underlying component of COPD. I did strongly suggest that he follow-up with us in the lung clinic so that baseline PFTs could be obtained and so that he could be placed on a maintenance inhaler regimen to improve his exertional dyspnea complaints. In the interim, I agree with continuing antibiotics pending infectious workup. Continue scheduled bronchodilators. 2. Anemia/chronic oropharyngeal dysphasia/chronic pain syndrome/hypothyroidism/hypertension/hyperlipidemia/tobacco abuse/alcohol dependence Complicates care, management, recovery and prognosis. Likely okay to continue home medications from my perspective. Smoking and alcohol cessation is strongly advisable. This note was generated with FreeATMation software. It may contain incorrect words, spelling, and punctuation that were not noted in checking the note before signing. Code Visit Inpatient E&M: 05900 Init Hosp L3
--- NOTE | 2018-05-31 08:30 | CON.PCM_ITS ---
Reason for Consult Date of Consultation: 05/31/18 Reason for Consultation: Lung mass History of Present Illness: The patient is a 67-year-old male, with a history as outlined below, who presented to the emergency department on May 30 with complaints of progressive dyspnea and hemoptysis. The patient does have a history of head/neck cancer, for which he is status post chemoradiation. He also has a history of bilateral carotid artery stenosis and is status post left-sided carotid endarterectomy. He is on Plavix as an outpatient. The patient reports that his head and neck cancer has been in remission and he was last seen by his oncologist approximately 6 or 7 years ago at the [facility]. The patient does have an active smoking history of 1 pack/day x 50 years. He also drinks hard liquor daily. 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 He does have baseline exertional shortness of breath, but is never been evaluated by a gear cutting machine set up operator, nor has he ever undergone pulmonary function testing previously. He does not utilize any maintenance inhalers at his baseline. He reports that over the last week he has noticed blood streaked sputum and worsening shortness of breath. On presentation to the emergency department, the patient was noted to be afebrile and hemodynamically stable. Laboratory evaluation revealed evidence of a normocytic anemia without evidence of leukocytosis. INR was noted be 1.0. Chemistry profile was notable for a sodium of 131 and a chloride of 97. Serum lactate was within normal limits. Urinalysis revealed no evidence concerning for infection. Plain film chest imaging revealed findings concerning for a lingula/left upper lobe airspace opacity. A follow-up CT chest without contrast was obtained which revealed bilateral emphysematous changes and a masslike density within the lingula with extension into the hilum. The patient was started on aerosol treatments along with ceftriaxone and azithromycin. He was subsequently admitted to the medical surgical floor for further evaluation. Past Medical History Past Medical History (Chronic Problems): Chronic Problems HTN (hypertension) (Chronic) HLD (hyperlipidemia) (Chronic) Hypothyroidism (Chronic) Chronic pain syndrome (Chronic) Carotid arterial disease (Chronic) TIA (transient ischemic attack) (Chronic) Oropharyngeal dysphagia (Chronic) Throat cancer (Chronic) Allergies No Known Allergies Allergy (Verified 05/21/18 20:18) Home Medications: Ambulatory Orders Medication Instructions Recorded Acetaminophen Liquid [Tylenol 5 ml PO DAILY 05/30/18 Liquid] Albuterol Aerosols [Ventolin 2.5 mg INHALATION Q4HWA.RT 05/30/18 Aerosols] Aspirin/Sod Bicarb/Citric Acid 324 mg PO DAILY 05/30/18 [[place] Blue Tab Eff] Atorvastatin Calcium [Lipitor] 40 mg PO DAILY 05/30/18 Baclofen 5 mg PO BID 05/30/18 Carbamazepine [Carbamazepine ER] 100 mg PO QHS 05/30/18 Clopidogrel Bisulfate [Plavix] 75 mg PO DAILY 05/30/18 Ferrous Sulfate 325 mg PO DAILY 05/30/18 Fluticasone 0.05% [Flonase Nasal 2 spray NASAL DAILY 05/30/18 [place]] Gabapentin 6 ml PO QHS 05/30/18 Levothyroxine [Synthroid] 75 mcg PO DAILY 05/30/18 Lisinopril [Zestril] 40 mg PO DAILY 05/30/18 Mirtazapine 15 mg PO QHS 05/30/18 Oxycodone [Oxyir] 10 - 20 mg PO TID 05/30/18 Sertraline HCl [Zoloft] 200 mg PO DAILY 05/30/18 Psychiatric History: Anxiety, Depression Lives: Spouse/ Significant Other Smoking Status: Current every day smoker Tobacco Use: Cigarettes - 1 ppd since teen. Alcohol: Occasional - 1-2 shots crown daily. Drugs: None - *Family History Maternal History Items: - - Patient notes a paternal family history of hypertension and dementia. Paternal History Items: - - Patient notes a paternal family history of diabetes, hypertension, heart disease. Review of Systems Constitutional: Denies: Chills, Fever Eyes: Denies: Blurred vision, Double vision HEENT: Denies: Head Aches, Sinus Congestion, Sinus Drainage Cardiovascular: Denies: Chest Pain, Palpitations Respiratory: Reports: Cough, Hemoptysis, Shortness of Breath Gastrointestinal: Denies: Abdominal Pain, Nausea, Vomiting Genitourinary: Denies: Dysuria Musculoskeletal: Denies: Joint Pain, Joint Tenderness Skin: Denies: Rash, Wounds Neurological: Denies: Numbness, Tingling, Focal weakness Psychiatric: Denies: Anxiety, Depression, Homicidal Ideations, Suicidal Ideations Hematologic/ Lymphatic: Denies: Easy Bruising, Easy Bleeding Patient Problems: Active and Suspected Problems Pneumonia (Acute) Hemoptysis, unspecified (Acute) Anemia (Acute) Objective: The patient's most recent lab work, culture data and imaging studies have all been personally reviewed. - Physical Exam General: Alert, Oriented x3, Cooperative, No apparent distress HEENT: Atraumatic, PERRLA, Normocephalic Oral: No Gingival or Mucosal Lesions/ Ulcerations Neck: Supple, No Nodes, Trachea Midline Lungs: No rales, Diminished, Rhonchi, Wheezes Cardiovascular: Regular rate, Regular Rhythm, Normal S1, Normal S2, No murmurs Abdomen: Bowel Sounds Present, Soft, Non Tender, Non-Distended Extremities: No clubbing, No cyanosis, No edema Skin: No breakdown Musculoskeletal: No Tenderness to Palpation of Joints or Extremities, No Muscle Wasting Lymphatic: No Cervical, Supraclavicular, or Inguinal Adenopathy Neurological: Cranial nerves II-XII grossly intact, Neuro grossly intact Psych/Mental Status: Alert and oriented to time, place, person, mood and affect Vital Signs Temp Pulse Resp BP Pulse Ox 98.2 F 88 18 116/62 95 05/31/18 08:18 05/31/18 08:18 05/31/18 08:18 05/31/18 08:18 05/31/18 08:18 Oxygen Flow Rate (L/min) 3 Oxygen Delivery Method Room Air Weight: 218 lb 2 oz Body Mass Index (BMI) 28.0 Intake and Output for Last 24 Hours 05/29/18 05/30/18 05/31/18 23:59 23:59 23:59 Intake Total 613 / 613 613 / 613 Output Total 275 / 275 1100 / 1100 Balance 338 / 338 -487 / -487 Microbiology Past 72 Hours 05/30/18 21:50 Respiratory Panel (PCR) - Final Mucosa - Nasopharyngeal 05/30/18 21:49 Legionella Antigen - Final Interface Orders 05/30/18 21:49 Streptococcus pneumoniae Antigen (M - Final Interface Orders Laboratory Tests Past 24 Hrs 05/30/18 05/30/18 05/30/18 18:26 18:26 18:26 WBC 7.1 RBC 3.36 L Hgb 9.7 L Hct 30.1 L MCV 89.6 MCH 28.9 MCHC 32.2 RDW 14.4 RDW Differential 46.7 H Plt Count 311 MPV 8.6 Immature Gran % (Auto) 0.400 Neut % (Auto) 80.7 H Lymph % (Auto) 7.6 L [place] % (Auto) 9.2 Eos % (Auto) 1.8 Baso % (Auto) 0.3 Absolute Neuts (auto) 5.7 Absolute Lymphs (auto) 0.54 L Total Counted Not Reportable Differential Comment SCANNED PT 13.6 INR 1.0 APTT 37.7 H Sodium 131 L Potassium 4.1 Chloride 97 L Carbon Dioxide 28.0 Anion Gap 6 BUN 11 Creatinine 0.81 Estim Creat Clear Calc 102.89 Est GFR (MDRD) Af Amer 122 Est GFR (MDRD) Non-Af 101 BUN/Creatinine Ratio 13.6 Glucose 101 Lactic Acid Calcium 8.2 L Phosphorus Magnesium Iron TIBC Iron Saturation Ferritin Troponin I < 0.015 Vitamin B12 Folate Urine Color Urine Clarity Urine pH Ur Specific [place] Urine Protein Urine Glucose (UA) Urine Ketones Urine Occult Blood Urine Nitrite Urine Bilirubin Urine Urobilinogen Ur Leukocyte Esterase Urine RBC Urine WBC Ur Squamous Epith Cells Urine Bacteria Urine Mucus 05/30/18 05/30/18 05/30/18 18:26 18:26 18:26 WBC RBC Hgb Hct MCV MCH MCHC RDW RDW Differential Plt Count MPV Immature Gran % (Auto) Neut % (Auto) Lymph % (Auto) [place] % (Auto) Eos % (Auto) Baso % (Auto) Absolute Neuts (auto) Absolute Lymphs (auto) Total Counted Differential Comment PT INR APTT Sodium Potassium Chloride Carbon Dioxide Anion Gap BUN Creatinine Estim Creat Clear Calc Est GFR (MDRD) Af Amer Est GFR (MDRD) Non-Af BUN/Creatinine Ratio Glucose Lactic Acid 1.4 Calcium Phosphorus 3.5 Magnesium 1.9 Iron 220 H TIBC 296 Iron Saturation 74.3 H Ferritin 48 Troponin I Vitamin B12 655 Folate 7.90 Urine Color Urine Clarity Urine pH Ur Specific [place] Urine Protein Urine Glucose (UA) Urine Ketones Urine Occult Blood Urine Nitrite Urine Bilirubin Urine Urobilinogen Ur Leukocyte Esterase Urine RBC Urine WBC Ur Squamous Epith Cells Urine Bacteria Urine Mucus 05/30/18 05/31/18 05/31/18 19:25 05:58 05:58 WBC 5.9 RBC 2.98 L Hgb 8.8 L Hct 27.8 L MCV 93.3 MCH 29.5 MCHC 31.7 L RDW 14.2 RDW Differential 46.4 H Plt Count 319 MPV 8.7 Immature Gran % (Auto) 0.800 Neut % (Auto) 79.5 H Lymph % (Auto) 7.6 L [place] % (Auto) 9.3 Eos % (Auto) 2.5 Baso % (Auto) 0.3 Absolute Neuts (auto) 4.7 Absolute Lymphs (auto) 0.45 L Total Counted Not Reportable Differential Comment SCANNED PT INR APTT Sodium 138 Potassium 4.7 Chloride 102 Carbon Dioxide 27.0 Anion Gap 9 BUN 11 Creatinine 0.72 Estim Creat Clear Calc 83.34 Est GFR (MDRD) Af Amer 139 Est GFR (MDRD) Non-Af 115 BUN/Creatinine Ratio 15.2 Glucose 95 Lactic Acid Calcium 8.1 L Phosphorus Magnesium Iron TIBC Iron Saturation Ferritin Troponin I Vitamin B12 Folate Urine Color Yellow Urine Clarity Clear Urine pH 5.0 Ur Specific [place] 1.020 Urine Protein 15 H Urine Glucose (UA) Normal Urine Ketones Negative Urine Occult Blood Negative Urine Nitrite Negative Urine Bilirubin Negative Urine Urobilinogen Normal Ur Leukocyte Esterase 25 H Urine RBC 0 SEEN Urine WBC 0 SEEN Ur Squamous Epith Cells 0-5 SEEN Urine Bacteria 0 SEEN Urine Mucus 0 SEEN Clinical Impression(s) from Imaging Studies Chest X-Ray 05/30/18 18:35 IMPRESSION: COPD. Increased density peripherally in the left upper lobe and lingula possibly representing focal infiltrate. CT would be useful for more definitive evaluation Electronically Signed: Brandan Walters MD at 19:13 EDT , Service support , Chest CT 05/30/18 20:45 IMPRESSION: Chronic interstitial and emphysematous changes. Large infiltrative masslike density within the superior lingula extending into an infiltrating the left hilum and mid mediastinum consistent with neoplasm and possible distal obstructive atelectasis.. Clinical correlation recommended Electronically Signed: Brandan Walters MD at 23:00 EDT , Service support , Assessment/Plan All Active Problems Pneumonia (Acute) Hemoptysis, unspecified (Acute) Anemia (Acute) Spasm (Acute) RECOMMENDATIONS: 1. Continue antibiotics, pending infectious workup. 2. Continue scheduled bronchodilators. 3. Continue nicotine replacement therapy. 4. At the current time, the patient is not wishing to entertain the idea of any additional workup for his abnormal chest imaging. IMPRESSIONS: 1. Shortness of breath and hemoptysis The patient has a previous history of head neck cancer and is a longtime smoker of approximately 50 pack years. The patient's chest CT did reveal findings concerning for a possible lingular mass with infiltration into the left hilum. Given the patient's prior cancer history combined with his continued tobacco utilization, these findings are certainly worrisome. However, the patient does utilize Plavix on a daily basis. I explained these findings to the patient and advocated for further workup, which would likely include an airway evaluation via bronchoscopy. However, the patient made it very clear to me that he had already survived cancer once and he did not intend to go through it a second time. He therefore indicated to me that he would not be interested in pursuing additional workup at this time, including bronchoscopy and biopsy. I did explain to him that if we did pursue an invasive outpatient workup, that he would have to hold his Plavix for 5 days prior to the procedure. At this point, he stated that he would think about it, but did not wish to pursue with any scheduling at this time. In addition to the above, the patient may certainly have an underlying component of COPD. I did strongly suggest that he follow-up with us in the lung clinic so that baseline PFTs could be obtained and so that he could be placed on a maintenance inhaler regimen to improve his exertional dyspnea complaints. In the interim, I agree with continuing antibiotics pending infectious workup. Continue scheduled bronchodilators. 2. Anemia/chronic oropharyngeal dysphasia/chronic pain syndrome/hypothyroidism/hypertension/hyperlipidemia/tobacco abuse/alcohol dependence Complicates care, management, recovery and prognosis. Likely okay to continue home medications from my perspective. Smoking and alcohol cessation is strongly advisable. This note was generated with [employer] software. It may contain incorrect words, spelling, and punctuation that were not noted in checking the note before signing. Code Visit Inpatient E&M: 24625 Init Hosp L3
[2018-05-31] MEDS: Fluticasone 0.05% 1 SPRAY NASAL.SRY 2 SPRAY NASAL (08:42)
[2018-05-31] MEDS: guaiFENesin 1,200 MG Tablet 1200 MG PO (08:44)
[2018-05-31] MEDS: Baclofen 10 MG Tablet 5 MG PO ×2 (08:44→21:09)
[2018-05-31] MEDS: Lisinopril 40 MG Tablet PO (08:45)
[2018-05-31] MEDS: Famotidine 20 MG Tablet PO ×2 (08:45→21:09)
[2018-05-31] MEDS: Ferrous Sulfate 325 MG Tablet PO (08:45)
[2018-05-31] MEDS: Acetaminophen 160 MG/5 ML UDC PO (08:50)
[2018-05-31] MEDS: Ceftriaxone 1 GM/50 ML BAG IV (09:54)
--- NOTE | 2018-05-31 10:20 | CASEMGMT ---
RN SONIYA Face to Face with patient for initial transition planning/care coordination assessment. RN CM introduced self and role at [facility]. Patient lying in bed, alert and oriented. Patient willing to participate in assessment and is able to answer all questions appropriately. Care providers, pharmacy, and demographics verified. Patient wishes to discharge home, denies need for home health at this time. Patient states he has no further needs or concerns at this time. CM to follow for discharge planning needs that may arise. PCP: Alvarez Specialists: Jerald palliative; [facility] Preferred Pharmacy: [facility] Insurance: [facility] Prescription Benefit: Silver Script Living Will/HPOA: Yes, Gail Ortiz LNOK: Living Arrangements: Patient lives with in 2 story house with bed and bath on 1st floor. Patient is independent at home. Transportation: DME/HHC: Patient has cane and nebulizer. Declines additional DME and HHC Disposition Plan: Patient to discharge home with family support and follow-up plans in place. Ladi BLANCO, RN, CM
[2018-05-31] MEDS: Sertraline 100 MG Tablet 200 MG PO (11:00)
[2018-05-31] MEDS: Magnesium Hydroxide 30 ML UDC PO (11:14)
--- NOTE | 2018-05-31 13:37 | PN_ITS ---
<Ketty Wallace - Last Filed: 05/31/18 13:37> Patient Problems: Active and Suspected Problems Pneumonia (Acute) Hemoptysis, unspecified (Acute) Anemia (Acute) Subjective: Patient seen and examined. Notes significant improvement in shortness of breath. States he had a productive cough this morning with bloody sputum. Denies fever, chills. No other complaints. - Physical Exam General: Alert, Oriented x3, Cooperative, No apparent distress HEENT: Atraumatic, PERRLA, EOMI, Normocephalic Neck: Supple, No JVD, Negative Carotid Bruits Lungs: Diminished, Rhonchi, Wheezes Cardiovascular: Regular rate, Regular Rhythm, Normal S1, Normal S2, No murmurs Abdomen: Bowel Sounds Present, Soft, Non Tender, Non-Distended Extremities: No clubbing, No cyanosis, No edema, Capillary Refill Less than 3 Seconds Skin: No rashes, No breakdown Musculoskeletal: No Tenderness to Palpation of Joints or Extremities Neurological: Cranial nerves II-XII grossly intact, Neuro grossly intact Psych/Mental Status: Normal Affect, Appropriate Vital Signs Temp Pulse Resp BP Pulse Ox 98.2 F 88 18 116/62 95 05/31/18 08:18 05/31/18 08:18 05/31/18 08:18 05/31/18 08:18 05/31/18 08:18 Oxygen Flow Rate (L/min) 3 Oxygen Delivery Method Room Air Weight: 218 lb 2.006 oz Body Mass Index (BMI) 28.0 Intake and Output for Last 24 Hours 05/29/18 05/30/18 05/31/18 23:59 23:59 23:59 Intake Total 613 / 613 2024 Output Total 275 / 275 1500 / 1500 Balance 338 / 338 525 / 525 Microbiology Past 72 Hours 05/30/18 21:50 Respiratory Panel (PCR) - Final Mucosa - Nasopharyngeal 05/30/18 21:49 Legionella Antigen - Final Interface Orders 05/30/18 21:49 Streptococcus pneumoniae Antigen (M - Final Interface Orders Laboratory Tests Past 24 Hrs 05/30/18 05/30/18 05/30/18 18:26 18:26 18:26 WBC 7.1 RBC 3.36 L Hgb 9.7 L Hct 30.1 L MCV 89.6 MCH 28.9 MCHC 32.2 RDW 14.4 RDW Differential 46.7 H Plt Count 311 MPV 8.6 Immature Gran % (Auto) 0.400 Neut % (Auto) 80.7 H Lymph % (Auto) 7.6 L Wolfe % (Auto) 9.2 Eos % (Auto) 1.8 Baso % (Auto) 0.3 Absolute Neuts (auto) 5.7 Absolute Lymphs (auto) 0.54 L Total Counted Not Reportable Differential Comment SCANNED PT 13.6 INR 1.0 APTT 37.7 H Sodium 131 L Potassium 4.1 Chloride 97 L Carbon Dioxide 28.0 Anion Gap 6 BUN 11 Creatinine 0.81 Estim Creat Clear Calc 102.89 Est GFR (MDRD) Af Amer 122 Est GFR (MDRD) Non-Af 101 BUN/Creatinine Ratio 13.6 Glucose 101 Lactic Acid Calcium 8.2 L Phosphorus Magnesium Iron TIBC Iron Saturation Ferritin Troponin I < 0.015 Vitamin B12 Folate Urine Color Urine Clarity Urine pH Ur Specific [place] Urine Protein Urine Glucose (UA) Urine Ketones Urine Occult Blood Urine Nitrite Urine Bilirubin Urine Urobilinogen Ur Leukocyte Esterase Urine RBC Urine WBC Ur Squamous Epith Cells Urine Bacteria Urine Mucus 05/30/18 05/30/18 05/30/18 18:26 18:26 18:26 WBC RBC Hgb Hct MCV MCH MCHC RDW RDW Differential Plt Count MPV Immature Gran % (Auto) Neut % (Auto) Lymph % (Auto) Wolfe % (Auto) Eos % (Auto) Baso % (Auto) Absolute Neuts (auto) Absolute Lymphs (auto) Total Counted Differential Comment PT INR APTT Sodium Potassium Chloride Carbon Dioxide Anion Gap BUN Creatinine Estim Creat Clear Calc Est GFR (MDRD) Af Amer Est GFR (MDRD) Non-Af BUN/Creatinine Ratio Glucose Lactic Acid 1.4 Calcium Phosphorus 3.5 Magnesium 1.9 Iron 220 H TIBC 296 Iron Saturation 74.3 H Ferritin 48 Troponin I Vitamin B12 655 Folate 7.90 Urine Color Urine Clarity Urine pH Ur Specific [place] Urine Protein Urine Glucose (UA) Urine Ketones Urine Occult Blood Urine Nitrite Urine Bilirubin Urine Urobilinogen Ur Leukocyte Esterase Urine RBC Urine WBC Ur Squamous Epith Cells Urine Bacteria Urine Mucus 05/30/18 05/31/18 05/31/18 19:25 05:58 05:58 WBC 5.9 RBC 2.98 L Hgb 8.8 L Hct 27.8 L MCV 93.3 MCH 29.5 MCHC 31.7 L RDW 14.2 RDW Differential 46.4 H Plt Count 319 MPV 8.7 Immature Gran % (Auto) 0.800 Neut % (Auto) 79.5 H Lymph % (Auto) 7.6 L Wolfe % (Auto) 9.3 Eos % (Auto) 2.5 Baso % (Auto) 0.3 Absolute Neuts (auto) 4.7 Absolute Lymphs (auto) 0.45 L Total Counted Not Reportable Differential Comment SCANNED PT INR APTT Sodium 138 Potassium 4.7 Chloride 102 Carbon Dioxide 27.0 Anion Gap 9 BUN 11 Creatinine 0.72 Estim Creat Clear Calc 83.34 Est GFR (MDRD) Af Amer 139 Est GFR (MDRD) Non-Af 115 BUN/Creatinine Ratio 15.2 Glucose 95 Lactic Acid Calcium 8.1 L Phosphorus Magnesium Iron TIBC Iron Saturation Ferritin Troponin I Vitamin B12 Folate Urine Color Yellow Urine Clarity Clear Urine pH 5.0 Ur Specific [place] 1.020 Urine Protein 15 H Urine Glucose (UA) Normal Urine Ketones Negative Urine Occult Blood Negative Urine Nitrite Negative Urine Bilirubin Negative Urine Urobilinogen Normal Ur Leukocyte Esterase 25 H Urine RBC 0 SEEN Urine WBC 0 SEEN Ur Squamous Epith Cells 0-5 SEEN Urine Bacteria 0 SEEN Urine Mucus 0 SEEN Medical Necessity - Tobacco Use Smoking Status: Current every day smoker Tobacco Use: Cigarettes - 1 ppd since teen. Assessment/Plan All Active Problems Pneumonia (Acute) Hemoptysis, unspecified (Acute) Anemia (Acute) Spasm (Acute) 1. Acute hypoxia secondary to suspected community-acquired pneumonia with hemoptysis-prior history of throat cancer status post radiation. Pulmonary medicine consulted. CT of chest shows chronic emphysematous changes, large infiltrative masslike density within the superior lingula extending into an infiltrating the left hilum and mid mediastinum consistent with neoplasm and possible distal obstructive atelectasis. Sputum culture pending. Respiratory panel negative. Urine for strep and Legionella negative. Blood cultures pending. Patient afebrile. No leukocytosis. Oxygen now stable on room air. Continue albuterol and DuoNeb aerosols. Continue azithromycin and Rocephin. Pulmonary medicine discussed further evaluation including bronchoscopy which patient refused. He is not interested in pursuing additional workup including bronchoscopy and biopsy. Recommend further outpatient follow-up with pulmonary medicine and obtaining PFTs given significant smoking history. 2. Acute on chronic iron deficiency anemia-continue iron supplementation. Trend CBC. 3. Chronic oropharyngeal dysphasia-speech therapy consult. 4. Anxiety/depression-continue home sertraline, Valium and mirtazapine regimen. 5. Chronic pain syndrome-resume home baclofen, gabapentin, Valium and oxycodone regimen. 6. Hypothyroidism-continue home Synthroid regimen. 7. Hypertension-stable, continue home lisinopril regimen. 8. Hyperlipidemia-continue home statin regimen. 9. Seizure disorder-on carbamazepine regimen. 10. Carotid artery disease-status post right CEA. Plavix on hold secondary to hemoptysis. Continue statin. 11. Tobacco [id number]-year smoking history. Encourage cessation. DVT prophylaxis-SCDs. Pharmacologic prophylaxis contraindicated due to he moptysis. This patient was seen by JADA Antoine under the supervision of Dr. Flores. <Ata Flores F - Last Filed: 05/31/18 14:59> - Physical Exam Vital Signs Temp Pulse Resp BP Pulse Ox 98.6 F 82 18 111/76 94 05/31/18 14:11 05/31/18 14:11 05/31/18 14:11 05/31/18 14:11 05/31/18 14:11 Oxygen Flow Rate (L/min) 3 Oxygen Delivery Method Room Air Weight: 218 lb 2.006 oz Body Mass Index (BMI) 28.0 Intake and Output for Last 24 Hours 05/29/18 05/30/18 05/31/18 23:59 23:59 23:59 Intake Total 613 / 613 2024 / 2024 Output Total 275 / 275 1500 / 1500 Balance 338 / 338 525 / 525 Microbiology Past 72 Hours 05/30/18 21:50 Respiratory Panel (PCR) - Final Mucosa - Nasopharyngeal 05/30/18 21:49 Legionella Antigen - Final Interface Orders 05/30/18 21:49 Streptococcus pneumoniae Antigen (M - Final Interface Orders Laboratory Tests Past 24 Hrs 05/30/18 05/30/18 05/30/18 18:26 18:26 18:26 WBC 7.1 RBC 3.36 L Hgb 9.7 L Hct 30.1 L MCV 89.6 MCH 28.9 MCHC 32.2 RDW 14.4 RDW Differential 46.7 H Plt Count 311 MPV 8.6 Immature Gran % (Auto) 0.400 Neut % (Auto) 80.7 H Lymph % (Auto) 7.6 L Wolfe % (Auto) 9.2 Eos % (Auto) 1.8 Baso % (Auto) 0.3 Absolute Neuts (auto) 5.7 Absolute Lymphs (auto) 0.54 L Total Counted Not Reportable Differential Comment SCANNED PT 13.6 INR 1.0 APTT 37.7 H Sodium 131 L Potassium 4.1 Chloride 97 L Carbon Dioxide 28.0 Anion Gap 6 BUN 11 Creatinine 0.81 Estim Creat Clear Calc 102.89 Est GFR (MDRD) Af Amer 122 Est GFR (MDRD) Non-Af 101 BUN/Creatinine Ratio 13.6 Glucose 101 Lactic Acid Calcium 8.2 L Phosphorus Magnesium Iron TIBC Iron Saturation Ferritin Troponin I < 0.015 Vitamin B12 Folate Urine Color Urine Clarity Urine pH Ur Specific [place] Urine Protein Urine Glucose (UA) Urine Ketones Urine Occult Blood Urine Nitrite Urine Bilirubin Urine Urobilinogen Ur Leukocyte Esterase Urine RBC Urine WBC Ur Squamous Epith Cells Urine Bacteria Urine Mucus 05/30/18 05/30/18 05/30/18 18:26 18:26 18:26 WBC RBC Hgb Hct MCV MCH MCHC RDW RDW Differential Plt Count MPV Immature Gran % (Auto) Neut % (Auto) Lymph % (Auto) Wolfe % (Auto) Eos % (Auto) Baso % (Auto) Absolute Neuts (auto) Absolute Lymphs (auto) Total Counted Differential Comment PT INR APTT Sodium Potassium Chloride Carbon Dioxide Anion Gap BUN Creatinine Estim Creat Clear Calc Est GFR (MDRD) Af Amer Est GFR (MDRD) Non-Af BUN/Creatinine Ratio Glucose Lactic Acid 1.4 Calcium Phosphorus 3.5 Magnesium 1.9 Iron 220 H TIBC 296 Iron Saturation 74.3 H Ferritin 48 Troponin I Vitamin B12 655 Folate 7.90 Urine Color Urine Clarity Urine pH Ur Specific [place] Urine Protein Urine Glucose (UA) Urine Ketones Urine Occult Blood Urine Nitrite Urine Bilirubin Urine Urobilinogen Ur Leukocyte Esterase Urine RBC Urine WBC Ur Squamous Epith Cells Urine Bacteria Urine Mucus 05/30/18 05/31/18 05/31/18 19:25 05:58 05:58 WBC 5.9 RBC 2.98 L Hgb 8.8 L Hct 27.8 L MCV 93.3 MCH 29.5 MCHC 31.7 L RDW 14.2 RDW Differential 46.4 H Plt Count 319 MPV 8.7 Immature Gran % (Auto) 0.800 Neut % (Auto) 79.5 H Lymph % (Auto) 7.6 L Wolfe % (Auto) 9.3 Eos % (Auto) 2.5 Baso % (Auto) 0.3 Absolute Neuts (auto) 4.7 Absolute Lymphs (auto) 0.45 L Total Counted Not Reportable Differential Comment SCANNED PT INR APTT Sodium 138 Potassium 4.7 Chloride 102 Carbon Dioxide 27.0 Anion Gap 9 BUN 11 Creatinine 0.72 Estim Creat Clear Calc 83.34 Est GFR (MDRD) Af Amer 139 Est GFR (MDRD) Non-Af 115 BUN/Creatinine Ratio 15.2 Glucose 95 Lactic Acid Calcium 8.1 L Phosphorus Magnesium Iron TIBC Iron Saturation Ferritin Troponin I Vitamin B12 Folate Urine Color Yellow Urine Clarity Clear Urine pH 5.0 Ur Specific [place] 1.020 Urine Protein 15 H Urine Glucose (UA) Normal Urine Ketones Negative Urine Occult Blood Negative Urine Nitrite Negative Urine Bilirubin Negative Urine Urobilinogen Normal Ur Leukocyte Esterase 25 H Urine RBC 0 SEEN Urine WBC 0 SEEN Ur Squamous Epith Cells 0-5 SEEN Urine Bacteria 0 SEEN Urine Mucus 0 SEEN Code Visit Addendum: Dr. Flores I personally examined the patient and reviewed the chart. I agree with the above. 67-year-old male with a past medical history consistent of chronic pain syndrome, history of throat cancer status post chemotherapy and radiation in 2010, history of TIA versus CVA without deficits, chronic normocytic anemia, hypertension, hyperlipidemia, anxiety and depression, hypothyroidism, carotid disease status post left CEA approximately 1-1/2 years ago who presents to the ER with hemoptysis and dyspnea. On admission he had a CT scan which demonstrated a left lingular mass penetrating into the hilum as well as a possible pneumonia. He currently does not want any workup whatsoever of this mass at this time. He is hemodynamically stable and currently his hemoptysis is minimal. We will treat 1 more day with IV antibiotics for community-acquired pneumonia and will plan to discharge tomorrow. I do recommend that he follow-up with pulmonology to at least assist with quality of life when it comes to his respiratory status. If he would like to pursue workup of this lung mass in the near future I do recommend that he return to the [facility] which is where he had been treated for his laryngeal carcinoma in the past. Inpatient E&M: 47861 Subs Hosp L2
[2018-05-31 14:11] VITALS: BP 111/76; PULSE 82; RESP 18; TEMP 37; O2SAT 94
[2018-05-31] MEDS: Mag Hydrox/Al Hydrox/Simeth 30 ML UDC PO (17:11)
[2018-05-31] MEDS: Ipratropium/Albuterol Sulfate 3 ML AMPUL.NEB INHALATION (19:20)
[2018-05-31 20:32] VITALS: BP 128/81; PULSE 87; RESP 18; TEMP 36.8; O2SAT 93
[2018-05-31] MEDS: Mirtazapine 15 MG Tablet PO (21:09)
[2018-05-31] MEDS: Atorvastatin Calcium 40 MG Tablet PO (21:09)
[2018-05-31] MEDS: GABAPENTIN 250 MG/5 ML SOLUTION 300 MG PO (21:10)
[2018-06-01 02:15] VITALS: BP 105/65; PULSE 72; RESP 18; TEMP 36.8; O2SAT 92
[2018-06-01] MEDS: oxyCODONE 5 MG Tablet PO (06:03)
[2018-06-01] MEDS: Levothyroxine 75 MCG Tablet PO (06:03)
[2018-06-01] MEDS: 0.9% Normal Saline 1,000 ML 125 ML IV (07:41)
[2018-06-01 07:45] VITALS: BP 137/83; PULSE 77; RESP 18; TEMP 36.8; O2SAT 97
[2018-06-01 07:49] VITALS: PULSE 78; RESP 20; O2SAT 90
[2018-06-01] MEDS: Ipratropium/Albuterol Sulfate 3 ML AMPUL.NEB INHALATION (07:49)
[2018-06-01 08:10] LABS: Hematocrit 27.7 % (40-54); Hemoglobin 8.8 g/dl (13.0-16.5); Mean Corp Hgb Conc 31.8 g/gl (32-36); Mean Corpuscular Hgb 29.7 pg (27.0-32.0); Mean Corpuscular Volume 93.6 fL (80-94); Mean Platelet Vol. 8.9 fl (6.2-12.0); Platelet Count 344 K/mm3 (150-450); RBC Distribution Width CV 14.3 % (11.6-14.6); RBC Distribution Width SD 46.4 fl (35.1-43.9); Red Blood Count 2.96 M/mm3 (4.6-6.2); White Blood Count 6.3 K/mm3 (4.4-11.0)
[2018-06-01 08:11] LABS: Scan Indicated on CBC? Y/N NO
[2018-06-01] MEDS: Ferrous Sulfate 325 MG Tablet PO (09:12)
[2018-06-01] MEDS: Fluticasone 0.05% 1 SPRAY NASAL.SRY 2 SPRAY NASAL (09:12)
[2018-06-01] MEDS: Baclofen 10 MG Tablet 5 MG PO (09:13)
[2018-06-01] MEDS: Sertraline 100 MG Tablet 200 MG PO (09:13)
[2018-06-01] MEDS: Lisinopril 40 MG Tablet PO (09:14)
[2018-06-01] MEDS: Famotidine 20 MG Tablet PO (09:14)
[2018-06-01] MEDS: Ceftriaxone 1 GM/50 ML BAG IV (09:16)
[2018-06-01] MEDS: 0.9% NaCl Peripheral Flush Adult/Peds IV (09:24)
[2018-06-01] MEDS: Acetaminophen 160 MG/5 ML UDC PO (09:29)
[2018-06-01] MEDS: Magnesium Hydroxide 30 ML UDC PO (10:15)
--- NOTE | 2018-06-01 11:38 | PCM.DC ---
- Discharge Diagnoses Current Active Problems: Current Active and Chronic Problems Pneumonia (Acute) Hemoptysis, unspecified (Acute) HTN (hypertension) (Chronic) HLD (hyperlipidemia) (Chronic) Hypothyroidism (Chronic) Chronic pain syndrome (Chronic) Carotid arterial disease (Chronic) TIA (transient ischemic attack) (Chronic) Oropharyngeal dysphagia (Chronic) Throat cancer (Chronic) Anemia (Acute) You will use the following diet at home:: No restrictions Discharge Activity: Return to Normal Activity Call your doctor if you observe: Shortness of breath, Dizziness, Fainting spells, Chest pain Allergies/Adverse Reactions: Allergies No Known Allergies Allergy (Verified 05/21/18 20:18) Medications to take at Discharge Acetaminophen Liquid [Tylenol Liquid] 5 ml PO DAILY 05/30/18 Aspirin/Sod Bicarb/Citric Acid [[place] Blue Tab Eff] 324 mg PO DAILY 05/30/18 Atorvastatin Calcium [Lipitor] 40 mg PO DAILY 05/30/18 Baclofen 5 mg PO BID 05/30/18 Carbamazepine [Carbamazepine ER] 100 mg PO QHS 05/30/18 Ferrous Sulfate 325 mg PO DAILY 05/30/18 Fluticasone 0.05% [Flonase Nasal [place]] 2 spray NASAL DAILY 05/30/18 Gabapentin 6 ml PO QHS 05/30/18 Levothyroxine [Synthroid] 75 mcg PO DAILY 05/30/18 Lisinopril [Zestril] 40 mg PO DAILY 05/30/18 Mirtazapine 15 mg PO QHS 05/30/18 Oxycodone [Oxyir] 10 - 20 mg PO TID 05/30/18 Sertraline HCl [Zoloft] 200 mg PO DAILY 05/30/18 Albuterol Aerosols [Ventolin Aerosols] 2.5 mg INHALATION Q4HWA.RT #90 vial.neb. 06/01/18 Ipratropium/Albuterol Sulfate [Duoneb] 3 ml INHALATION Q6H.RT #90 ampul.neb 06/01/18 Nicotine [Nicoderm Cq] 21 mg TRANSDERM. DAILY #14 patch 06/01/18 The following prescriptions were given: Albuterol Aerosols [Ventolin Aerosols] 2.5 mg INHALATION Q4HWA.RT #90 vial.neb. Ipratropium/Albuterol Sulfate [Duoneb] 3 ml INHALATION Q6H.RT #90 ampul.neb Nicotine [Nicoderm Cq] 21 mg TRANSDERM. DAILY #14 patch Primary Care Physician: Brandan Pino MD [Primary Care Provider] - Please follow up with your Primary Care Physician in: 1 Week Test Results: Test results from this visit will be discussed in further detail at your follow-up appointment, if applicable. Please Follow Up With: Duane Underwood DO When: Call to schedule Proposed Discharge Date: 06/01/18
[2018-06-01 11:50] VITALS: O2SAT 98
[2018-06-01 11:54] VITALS: RESP 18; TEMP 36.9; O2SAT 98
--- NOTE | 2018-06-01 12:01 | PCM.DC.SUM ---
<Ketty Wallace - Last Filed: 06/01/18 12:28> Discharge Date and Diagnosis Date of Admission: 05/30/18 Date of Discharge: 06/01/18 - Primary Discharge Diagnosis Active and Suspected Problems 1. Acute hypoxia secondary to suspected community-acquired pneumonia with hemoptysis 2. Hemoptysis with concern for neoplasm 3. Chronic iron deficiency anemia 4. Chronic oropharyngeal dysphagia - Secondary Discharge Diagnosis Chronic Problems HTN (hypertension) (Chronic) HLD (hyperlipidemia) (Chronic) Hypothyroidism (Chronic) Chronic pain syndrome (Chronic) Carotid arterial disease (Chronic) TIA (transient ischemic attack) (Chronic) Oropharyngeal dysphagia (Chronic) Throat cancer (Chronic) Hospital Course and Treatment Imaging Results: Diagnostic Data Chest X-Ray 05/30/18 18:35 IMPRESSION: COPD. Increased density peripherally in the left upper lobe and lingula possibly representing focal infiltrate. CT would be useful for more definitive evaluation Electronically Signed: Brandan Walters MD at 19:13 EDT , Service support , Chest CT 05/30/18 20:45 IMPRESSION: Chronic interstitial and emphysematous changes. Large infiltrative masslike density within the superior lingula extending into an infiltrating the left hilum and mid mediastinum consistent with neoplasm and possible distal obstructive atelectasis.. Clinical correlation recommended Electronically Signed: Brandan Walters MD at 23:00 EDT , Service support , Dr. Underwood- Pulmonary Medicine Operations: None Procedures: None Summary of Care Provided: The patient is a 67 year old M admitted 05/30/2018 due to cough with hemoptysis. 1. Acute hypoxia secondary to suspected community-acquired pneumonia with hemoptysis-prior history of throat cancer status post radiation. Pulmonary medicine consulted. CT of chest shows chronic emphysematous changes, large infiltrative masslike density within the superior lingula extending into an infiltrating the left hilum and mid mediastinum consistent with neoplasm and possible distal obstructive atelectasis. Sputum culture shows normal respiratory rodrick. Respiratory panel negative. Urine for strep and Legionella negative. Blood cultures pending. Patient afebrile. No leukocytosis. Oxygen now stable on room air. Walking pulse ox completed prior to discharge and patient did not require further supplemental oxygen. Continue albuterol and DuoNeb aerosols. Patient has nebulizer available at home. Patient received IV azithromycin and IV Rocephin during admission. Discharge on oral Levaquin 750 mg p.o. for 7 days. Pulmonary medicine recommending bronchoscopy with biopsy. Patient initially refused however is now willing to proceed as outpatient. Patient will follow-up with pulmonary medicine with plans for bronchoscopy/biopsy in the near future. Patient can continue Plavix at discharge. He will need to hold Plavix 5 days prior to bronchoscopy when this is scheduled. 2. Acute on chronic iron deficiency anemia-continue iron supplementation. Stable. 3. Chronic oropharyngeal dysphasia-speech therapy recommending nectar thick liquids with soft textures. 4. Anxiety/depression-continue home sertraline, Valium and mirtazapine regimen. 5. Chronic pain syndrome-resume home baclofen, gabapentin, Valium and oxycodone regimen. 6. Hypothyroidism-continue home Synthroid regimen. 7. Hypertension-stable, continue home lisinopril regimen. 8. Hyperlipidemia-continue home statin regimen. 9. Seizure disorder-on carbamazepine regimen. 10. Carotid artery disease-status post right CEA. Continue statin, plavix. 11. Tobacco tccqowcagi-80-jift-year smoking history. Encourage cessation. Discharged with nicotine replacement patch. General: Alert, Oriented x3, Cooperative, No apparent distress HEENT: Atraumatic, PERRLA, EOMI, Normocephalic Neck: Supple, No JVD, Negative Carotid Bruits Lungs: Diminished, Rhonchi, Wheezes Cardiovascular: Regular rate, Regular Rhythm, Normal S1, Normal S2, No murmurs Abdomen: Bowel Sounds Present, Soft, Non Tender, Non-Distended Extremities: No clubbing, No cyanosis, No edema, Capillary Refill Less than 3 Seconds Skin: No rashes, No breakdown Musculoskeletal: No Tenderness to Palpation of Joints or Extremities Neurological: Cranial nerves II-XII grossly intact, Neuro grossly intact Psych/Mental Status: Normal Affect, Appropriate Patient seen exam prior to discharge. Physical assessment as noted above. Patient is stable for discharge home with further follow-up with primary care physician and pulmonary medicine. This patient was seen by JADA Antoine under the supervision of Dr. Flores. - Physical Exam Vital Signs Temp Pulse Resp BP Pulse Ox 98.4 F 78 18 137/83 H 98 06/01/18 11:54 06/01/18 07:49 06/01/18 11:54 06/01/18 07:45 06/01/18 11:54 Oxygen Flow Rate (L/min) 3 Oxygen Delivery Method Room Air Weight: 218 lb 2.006 oz Body Mass Index (BMI) 28.0 Intake and Output for Last 24 Hours 05/30/18 05/31/18 06/01/18 23:59 23:59 23:59 Intake Total 613 / 613 4399 / 4399 820 / 820 Output Total 275 / 275 2225 / 2225 900 / 900 Balance 338 / 338 2174 / 2174 -80 / -80 Microbiology Past 72 Hours 05/31/18 Unknown Respiratory Culture - Preliminary Sputum, Expectorated/Coughed Appears to be normal respiratory rodrick. Further studies to follow. 05/30/18 21:50 Respiratory Panel (PCR) - Final Mucosa - Nasopharyngeal 05/30/18 21:49 Legionella Antigen - Final Interface Orders 05/30/18 21:49 Streptococcus pneumoniae Antigen (M - Final Interface Orders Laboratory Tests Past 24 Hrs 06/01/18 07:25 WBC 6.3 RBC 2.96 L Hgb 8.8 L Hct 27.7 L MCV 93.6 MCH 29.7 MCHC 31.8 L RDW 14.3 RDW Differential 46.4 H Plt Count 344 MPV 8.9 Discharge Diet: No Restrictions Discharge Activity: Return to Normal Activity Call your doctor if you observe: Shortness of breath, Dizziness, Fainting spells, Chest pain Home Medications: Medications to take at Discharge Acetaminophen Liquid [Tylenol Liquid] 5 ml PO DAILY 05/30/18 Aspirin/Sod Bicarb/Citric Acid [Connie-[place] Blue Tab Eff] 324 mg PO DAILY 05/30/18 Atorvastatin Calcium [Lipitor] 40 mg PO DAILY 05/30/18 Baclofen 5 mg PO BID 05/30/18 Carbamazepine [Carbamazepine ER] 100 mg PO QHS 05/30/18 Ferrous Sulfate 325 mg PO DAILY 05/30/18 Fluticasone 0.05% [Flonase Nasal [place]] 2 spray NASAL DAILY 05/30/18 Gabapentin 6 ml PO QHS 05/30/18 Levothyroxine [Synthroid] 75 mcg PO DAILY 05/30/18 Lisinopril [Zestril] 40 mg PO DAILY 05/30/18 Mirtazapine 15 mg PO QHS 05/30/18 Oxycodone [Oxyir] 10 - 20 mg PO TID 05/30/18 Sertraline HCl [Zoloft] 200 mg PO DAILY 05/30/18 Albuterol Aerosols [Ventolin Aerosols] 2.5 mg INHALATION Q4HWA.RT #90 vial.neb. 06/01/18 Ipratropium/Albuterol Sulfate [Duoneb] 3 ml INHALATION Q6H.RT #90 ampul.neb 06/01/18 Levofloxacin [Levaquin] 750 mg PO DAILY #7 tablet 06/01/18 Nicotine [Nicoderm Cq] 21 mg TRANSDERM. DAILY #14 patch 06/01/18 Following Prescrptions Were Given to Patient: Albuterol Aerosols [Ventolin Aerosols] 2.5 mg INHALATION Q4HWA.RT #90 vial.neb. Ipratropium/Albuterol Sulfate [Duoneb] 3 ml INHALATION Q6H.RT #90 ampul.neb Levofloxacin [Levaquin] 750 mg PO DAILY #7 tablet Nicotine [Nicoderm Cq] 21 mg TRANSDERM. DAILY #14 patch Primary Care Physician: Brandan Pino MD [Primary Care Provider] - Please follow up with your Primary Care Physician in: 1 Week Please Follow Up With: Duane Underwood DO When: Call to schedule Disposition: Home Minutes spent on discharge:: 35 Patient Condition:: Stable Medical Necessity - Tobacco Use Smoking Status: Current every day smoker Tobacco Use: Cigarettes - 1 ppd since teen. Meaningful Use Info Meaningful Use Diagnoses (Choose all that apply): None applicable <Ata Flores - Last Filed: 06/01/18 14:28> Discharge Date and Diagnosis - Secondary Discharge Diagnosis Chronic Problems HTN (hypertension) (Chronic) HLD (hyperlipidemia) (Chronic) Hypothyroidism (Chronic) Chronic pain syndrome (Chronic) Carotid arterial disease (Chronic) TIA (transient ischemic attack) (Chronic) Oropharyngeal dysphagia (Chronic) Throat cancer (Chronic) Hospital Course and Treatment Summary of Care Provided: The patient is a 67 year old M [] - Physical Exam Vital Signs Temp Pulse Resp BP Pulse Ox 98.4 F 78 18 137/83 H 98 06/01/18 11:54 06/01/18 07:49 06/01/18 11:54 06/01/18 07:45 06/01/18 11:54 Oxygen Flow Rate (L/min) 3 Oxygen Delivery Method Room Air Weight: 218 lb 2.006 oz Body Mass Index (BMI) 28.0 Intake and Output for Last 24 Hours 05/30/18 05/31/18 06/01/18 23:59 23:59 23:59 Intake Total 613 / 613 4399 / 4399 820 / 820 Output Total 275 / 275 2225 / 2225 900 / 900 Balance 338 / 338 2174 / 2174 -80 / -80 Microbiology Past 72 Hours 05/31/18 Unknown Gram Stain - Final Sputum, Expectorated/Coughed Respiratory Culture - Preliminary Appears to be normal respiratory rodrick. Further studies to follow. 05/30/18 21:50 Respiratory Panel (PCR) - Final Mucosa - Nasopharyngeal 05/30/18 21:49 Legionella Antigen - Final Interface Orders 05/30/18 21:49 Streptococcus pneumoniae Antigen (M - Final Interface Orders Laboratory Tests Past 24 Hrs 06/01/18 07:25 WBC 6.3 RBC 2.96 L Hgb 8.8 L Hct 27.7 L MCV 93.6 MCH 29.7 MCHC 31.8 L RDW 14.3 RDW Differential 46.4 H Plt Count 344 MPV 8.9 Code Visit Addendum: Dr. Flores I personally examined the patient and reviewed the chart. I agree with the above. 67-year-old male with a history of laryngeal carcinoma status post radiation, hypothyroidism, hypertension, hyperlipidemia, seizure disorder, carotid artery disease, presenting with acute hypoxia secondary to suspected community-acquired pneumonia with hemoptysis. On presentation he did have a CT chest which demonstrated a left lingular mass that appeared to be infiltrating the hilum. He was treated as a community-acquired pneumonia which he was discharged on Levaquin for, however we also had discussion that this mass could be cancer. Even though he had laryngeal carcinoma in 2010 he has continued to smoke. I discussed with him all of his options and he would like to follow-up with pulmonary medicine as an outpatient for a possible bronchoscopy and biopsy as well as to be initiated on medications to improve his respiratory status. He can continue his Plavix for now and when he is to undergo a biopsy he will likely need to hold his Plavix for 5 days prior. Inpatient E&M: 70713 Disch Hosp
--- NOTE | 2018-06-04 15:39 | CASEMGMT ---
FOLLOW-UP CALL: No answer. Voicemail left with return contact information.
== END 2018-06-01 12:10 | disposition home or self-care (01) | DRG 193 ==
LOC: ED 18:56 → MS3 20:02
PROVIDERS: Nurse Practitioner Family; Admitting Provider Family Medicine; Emergency Provider Emergency Medicine; Family Provider Family Medicine; PCP Family Medicine; Visit Provider Family Medicine
DX: J18.9 Pneumonia, unspecified organism (principal); J96.01 Acute respiratory failure with hypoxia; R04.2 Hemoptysis; R13.12 Dysphagia, oropharyngeal phase; Z23 Encounter for immunization; R09.02 Hypoxemia; D50.9 Iron deficiency anemia, unspecified; E78.5 Hyperlipidemia, unspecified; I10 Essential (primary) hypertension; E03.9 Hypothyroidism, unspecified; G89.4 Chronic pain syndrome; G40.909 Epilepsy, unspecified, not intractable, without status epilepticus; F17.210 Nicotine dependence, cigarettes, uncomplicated; Z85.819 Personal history of malignant neoplasm of unspecified site of lip, oral cavity, and pharynx; F41.9 Anxiety disorder, unspecified; F32.9 Major depressive disorder, single episode, unspecified; Z92.3 Personal history of irradiation; Z92.21 Personal history of antineoplastic chemotherapy; Z86.73 Personal history of transient ischemic attack (TIA), and cerebral infarction without residual deficits
CPT/HCPCS: 36415; 71045; 71250; 80048; 81001; 82607; 82728; 82746; 83540; 83550; 83605; 83735; 84100; 84484; 85025; 85027; 85610; 85730; 87040; 87070; 87205; 87449; 87633; 93005; 94640; 94667; 94668; 97802; 99283; J7030; J7050; 90686; A4216

== ENCOUNTER 2018-06-30 20:16 | Observation (INO) | payer MEDICARE, SELFPAY ==
[2018-06-30 20:16] VITALS: BP 154/91; PULSE 92; RESP 16; TEMP 36.3; O2SAT 96; BMI 28.2
--- NOTE | 2018-06-30 20:33 | EKG12_ITS ---
Test Reason : GENERAL ILLNESS Blood Pressure : / mmHG Vent. Rate : 093 BPM Atrial Rate : 093 BPM P-R Int : 196 ms QRS Dur : 090 ms QT Int : 338 ms P-R-T Axes : 053 002 046 degrees QTc Int : 420 ms Normal sinus rhythm Normal ECG Confirmed by TAINA CIFUENTES, WILBUR ([id number]), order editor BUNNY GAYTAN ([id number]) on 07/02/2018 2:16:00 PM Referred By: BETZAIDA Confirmed By:WILBUR HER MD
--- NOTE | 2018-06-30 20:35 | RAD_ITS ---
STUDY: X-RAY CHEST REASON FOR EXAM: Male, 67 years old. Weakness. TECHNIQUE: Portal chest. 05/30/2018. COMPARISON: None. FINDINGS: Opacity in the left lung base is consistent with pneumonia. No pleural effusion. Normal size heart. Normal mediastinum and juan. Normal visualized pulmonary arteries. Atherosclerotic calcification of the aorta. Normal visualized thoracic spine. Normal visualized ribs, clavicles, and shoulders. There is no demonstrated abnormality of the visualized soft tissue structures of the upper abdomen. RAD/Chest 1 View (Portable) IMPRESSION: Left lower lobe pneumonia. Electronically Signed: Aparna Phillips MD at 21:50 EST Tel , Service support ,
[2018-06-30] MEDS: diazePAM 5 MG Tablet PO (20:54)
[2018-06-30] MEDS: 0.9% Normal Saline 1,000 ML 150 ML IV (20:54)
[2018-06-30 21:18] LABS: Anion Gap 7 (5-15); BUN 7 mg/dL (7-18); BUN/Creat Ratio 10.1 RATIO (10-20); Calcium,Total 8.7 mg/dL (8.5-10.1); Chloride 94 mmol/L (98-107); Creatinine, Serum 0.69 mg/dL (0.70-1.30); EST Glomerular Filtration Rate 121 mL/min (>60); Est Glom Filt Rate - Afr Amer 146 mL/min (>60); Estimated Creatinine Clearance 83.34 ml/min; Glucose 104 mg/dL (74-106); Potassium 4.7 mmol/L (3.5-5.1); Sodium Level 125 mmol/L (136-145)
[2018-06-30 21:30] LABS: Absolute Lymphocyte Count 0.79 X10^3/ul (0.83-4.51); Absolute Neutrophil Count 7.2 X10^3/uL (2.0-7.7); Basophil# 0.04 X10^3/uL; Basophil% 0.4 % (0-1); Eosinophil# 0.18 X10^3/uL; Eosinophils% 1.9 % (0-5); Hematocrit 32.2 % (40-54); Hemoglobin 10.6 g/dl (13.0-16.5); Lymphocyte # 0.79 X10^3/ul (4.0); Lymphocyte % 8.5 % (19-41); Mean Corp Hgb Conc 32.9 g/gl (32-36); Mean Corpuscular Hgb 26.4 pg (27.0-32.0); Mean Corpuscular Volume 80.3 fL (80-94); Mean Platelet Vol. 8.9 fl (6.2-12.0); Monocyte# 0.99 X10^3/uL; Monocyte% 10.7 % (0-10); Neutrophil # 7.22 X10^3/uL (2.7-7.7); Platelet Count 441 K/mm3 (150-450); RBC Distribution Width SD 41.3 fl (35.1-43.9); Red Blood Count 4.01 M/mm3 (4.6-6.2); White Blood Count 9.3 K/mm3 (4.4-11.0)
[2018-06-30 21:32] LABS: POSITIVE COUNT NO; POSITIVE DIFFERENTIAL NO; POSITIVE MORPHOLOGY NO
[2018-06-30 22:37] VITALS: BP 126/90; PULSE 118; RESP 18; O2SAT 96
--- NOTE | 2018-06-30 22:46 | ED.DCSUM_ITS ---
- ER Visit Summary Date of Service: 06/30/18 Chief Complaint: Weakness, recent pneumonia History of Present Illness: The patient is a 67 M who was treated for pneumonia 1 month ago. Patient at that time was diagnosed with a lung/hilar mass. He is scheduled for a biopsy in 2 days. He presents tonight with generalized weakness, diffuse muscle spasms and unable to sleep for the past 3 days. He has moist sounding cough that is worsening per 's report. He has not had fever. He denies chest pain. states he was out of his normal Valium for a couple days, but that was refilled 3 or 4 days ago and has not helped the patient's symptoms. Physical Examination: Blood pressure is 154/91, heart rate 92, respiratory rate 16, pulse ox 96% on room air. Patient is afebrile. Patient is lying in bed. He frequently repositions and has a hard time lying in one position. Heart is regular rate and rhythm. Lungs sounds with mild crackles at the bases. Abdomen is soft nontender. Skin examination reveals no rash or lesions. Neuro exam reveals no focal deficits. Patient is anxious. Test Results: EKG is sinus at 93 with no sign of acute ischemia. CBC was normal white count with hemoglobin of 10.6. Chemistry studies reveal a sodium of 125 and a chloride of 94. At the time of discharge on May 31 his sodium was 138. Chest x-ray is read as left lower lobe pneumonia. This is the area where prior mass was noted on CT. Emergency Department Course and Treatment: Patient is given IV fluids along with p.o. Valium. On repeat evaluation his vitals are stable. He still remains very restless. He is given 2 mg of IM Haldol. I spoke with hospitalist regarding admission. I believe the area read as pneumonia on x-ray represents his known lung mass. He does not have fever or white count. I do not believe this represents an acute infiltrate. Patient is admitted for further treatment and evaluation. Treatment Plan: [] Disposition: Admit Impression: 1. Hyponatremia 2. Generalized weakness 3. Restlessness This note was generated with [employer] software. It may contain incorrect words, spelling, and punctuation that were not noted in review of the chart prior to signing ED Disposition - Plan for ED Patient: Chief Complaint: General Illness
--- NOTE | 2018-06-30 22:54 | HP.PCM_ITS ---
Problem List (1) Hyponatremia Status: Acute (2) Insomnia Status: Acute Qualifiers: Insomnia type: unspecified Qualified Code(s): G47.00 - Insomnia, unspecified (3) Lung mass Status: Chronic (4) Hemoptysis, unspecified Status: Chronic (5) HTN (hypertension) Status: Chronic Qualifiers: Hypertension type: essential hypertension Qualified Code(s): I10 - Essential (primary) hypertension (6) HLD (hyperlipidemia) Status: Chronic Qualifiers: Hyperlipidemia type: unspecified Qualified Code(s): E78.5 - Hyperlipidemia, unspecified (7) Hypothyroidism Status: Chronic Qualifiers: Hypothyroidism type: unspecified Qualified Code(s): E03.9 - Hypothyroidism, unspecified (8) Chronic pain syndrome Status: Chronic (9) Carotid arterial disease Status: Chronic Qualifiers: Carotid artery disease type: unspecified Laterality: right Qualified Code(s): I77.9 - Disorder of arteries and arterioles, unspecified (10) TIA (transient ischemic attack) Status: Chronic (11) Oropharyngeal dysphagia Status: Chronic (12) Throat cancer Status: Chronic (13) Anemia Status: Acute Qualifiers: Anemia type: iron deficiency History of Present Illness Date of Admission: 06/30/18 Chief Complaint: Agitation, Insomnia, Malaise. The patient is a 67 /o M w/ PMHx: Seizure disorder, Chronic Pain Syndrome, History of Throat CA s/p chemotherapy and radiation remotely noting he has been in remission, Prior TIA versus CVA without deficits, Chronic Normocytic Anemia, HTN, HLD, Anxiety and Depression, Hypothyroidism, Carotid Disease s/p L CEA ~ 1.5 years prior to current presentation, recent PNA admission 05/30/18 discharged w/ planned upcoming lung biopsy on 07/02/18 large infiltrative masslike density within the superior lingula extending into an infiltrating the left hilum and mid mediastinum consistent with neoplasm who now re-presents to the [facility] ED on 06/30/18 with history of general malaise, fatigue, poor sleep x 3 days secondary to frequent spasms noted to have run out of his valium recently but was refilled on 06/30/18 with no marked improvement, excessively fidgeting. Work-up in the ED included T 97.3, heart rate initially 92--> 118, BP 154/91, respiratory rate 16, 96% on room air, CBC with WBC 9.3, heme globin 10.6, plate let 441 without market left shift, BMP with sodium 125, chloride 94, chest x-ray with left findings LLL consistent with prior noted lung mass. In the ED patient administered normal saline, Valium 5 mg p.o. x1 as well as haldol given ongoing mild agitation. Past Medical History Past Medical History (Chronic Problems): Chronic Problems (Last Reviewed 06/13/18 @ 15:04 by Scarlet Smith, [employer]-C) Lung mass (Chronic) Hemoptysis, unspecified (Chronic) HTN (hypertension) (Chronic) HLD (hyperlipidemia) (Chronic) Hypothyroidism (Chronic) Chronic pain syndrome (Chronic) Carotid arterial disease (Chronic) TIA (transient ischemic attack) (Chronic) Oropharyngeal dysphagia (Chronic) Throat cancer (Chronic) Medical History: Medical History (Last Reviewed 06/13/18 @ 15:04 by Scarlet Smith, [employer]-C) Pneumonia (Acute) J18.9 Hemoptysis, unspecified (Acute) R04.2 HTN (hypertension) (Chronic) I10 HLD (hyperlipidemia) (Chronic) E78.5 Hypothyroidism (Chronic) E03.9 Chronic pain syndrome (Chronic) G89.4 Carotid arterial disease (Chronic) I77.9 TIA (transient ischemic attack) (Chronic) G45.9 Oropharyngeal dysphagia (Chronic) R13.12 Throat cancer (Chronic) C14.0 Anemia (Acute) D64.9 Spasm (Acute) R25.2 DVT (deep venous thrombosis) I82.409 Enlargement of lymph node R59.9 Head and neck cancer C76.0 Multiple lacunar infarcts I63.81 Depression F32.9 Esophageal stenosis K22.2 Sensorineural hearing loss H90.5 bilateral coronary artery stenosis Allergies bupropion Adverse Reaction (Intermediate, Verified 06/30/18 20:18) Other-dystonia Home Medications: Ambulatory Orders Medication Instructions Recorded Acetaminophen Liquid [Tylenol ml PO DAILY 05/30/18 Liquid] Atorvastatin Calcium [Lipitor] 40 mg PO DAILY 05/30/18 Baclofen 5 mg PO BID 05/30/18 Carbamazepine [Carbamazepine ER] 100 mg PO QHS 05/30/18 Ferrous Sulfate 325 mg PO DAILY 05/30/18 Fluticasone 0.05% [Flonase Nasal 2 spray NASAL DAILY 05/30/18 [place]] Gabapentin 6 ml PO QHS 05/30/18 Levothyroxine [Synthroid] 75 mcg PO DAILY 05/30/18 Lisinopril [Zestril] 40 mg PO DAILY 05/30/18 Mirtazapine 15 mg PO QHS 05/30/18 Oxycodone [Oxyir] 10 - 20 mg PO TID 05/30/18 Sertraline HCl [Zoloft] 200 mg PO DAILY 05/30/18 Albuterol Aerosols [Ventolin 2.5 mg INHALATION Q4HWA.RT #90 06/01/18 Aerosols] vial.neb. Levofloxacin [Levaquin] 750 mg PO DAILY #7 tab 06/01/18 Clopidogrel Bisulfate [Plavix] 75 mg PO DAILY 06/30/18 Ketoconazole [Nizoral] 1 applic TOPICAL BID 06/30/18 Surgical History: Surgical History (Last Reviewed 06/13/18 @ 15:04 by JADA Siddiqi) History of left-sided carotid endarterectomy Z98.890 Surgical History: - - R CEA, Vasectomy. Psychiatric History: Anxiety, Depression Lives: Spouse/ Significant Other Smoking Status: Current every day smoker - 1 ppd since teen. Tobacco Use: Cigarettes Alcohol: Occasional - 1-2 shots crown daily. Drugs: None - *Family History Maternal Family History: Family History (Last Reviewed 06/13/18 @ 15:04 by JADA Siddiqi) Father Diabetes Heart disease CVA (cerebral vascular accident) Mother Dementia History Items: - - Patient notes a paternal family history of hypertension and dementia. Paternal Family History: Family History (Last Reviewed 06/13/18 @ 15:04 by JADA Siddiqi) Father Diabetes Heart disease CVA (cerebral vascular accident) Mother Dementia History Items: - - Patient notes a paternal family history of diabetes, hypertension, heart disease. Review of Systems Constitutional: Reports: Anorexia, Malaise, Weakness, Fatigue. Denies: Chills, Fever, Weight Change HEENT: Denies: Head Aches, Sinus Congestion, Sinus Drainage Cardiovascular: Denies: Chest Pain, Palpitations Respiratory: Reports: Cough, Hemoptysis, Shortness of breath upon exertion. Denies: Shortness of breath at rest, Sputum production Gastrointestinal: Denies: Abdominal Pain, Nausea, Vomiting Genitourinary: Denies: Dysuria Musculoskeletal: Reports: Back Pain, Joint Pain, Muscle pain. Denies: Joint Tenderness Skin: Denies: Rash, Wounds Neurological: Denies: Numbness, Tingling, Focal weakness Psychiatric: Reports: Anxiety, Depression. Denies: Homicidal Ideations, Suicidal Ideations Hematologic/ Lymphatic: Reports: Anemia, Easy Bruising, Easy Bleeding VTE Information - Inpt Only VTE Present on Admission: No VTE Mechan Device Prophylaxis: SCD's VTE Pharm Prophylaxis ordered?: No Reason prophylaxis not ordered:: Medical Contraindication Patient Problems: Active and Suspected Problems (Last Reviewed 06/13/18 @ 15:04 by JADA Siddiqi) Hyponatremia (Acute) Insomnia (Acute) Subjective: Seated upright in the ED bed, fatigued, weak appearing, NAD. Objective: Physical Examination: General: awake, alert, oriented x 3 and cooperative, seated upright in ED bed in no apparent distress, fatigued and weak appearing. Skin: normal color, turgor, no icterus, cyanosis. HEENT: AT/NC, EOMI, PERRLA, dry MM, no carotid bruits or JVD noted. Lungs: Diminished BS BL, > L bases, poor effort, no rales, ronchi or wheezing. Heart: Regular rate and rhythm; no gallop, rub audible. Abdomen: soft, NTTP, ND, normal BS, no HSM. Extremities: no cyanosis, clubbing, BL ankle edema. Neurological: patient awake, alert, oriented x 3; cognitive function intact but slow to response compared to prior, fatigued; pupils equally reactive to light and accomodation; cranial nerves II-XII grossly normal, moving all 4 extremities, no focal deficits, strength moderately to severe globally decreased. Psychiatric: affect appears fatigued, flat, intermittently mildly agitated, moving about, no acute evidence of depressive feelings. - Physical Exam Vital Signs Temp Pulse Resp BP Pulse Ox 97.3 F L 118 H 18 126/90 H 96 06/30/18 20:16 06/30/18 22:37 06/30/18 22:37 06/30/18 22:37 06/30/18 22:37 Oxygen Delivery Method Room Air Weight: 220 lb Body Mass Index (BMI) 28.2 Laboratory Tests Past 24 Hrs 06/30/18 06/30/18 20:50 20:50 WBC 9.3 RBC 4.01 L Hgb 10.6 L Hct 32.2 L MCV 80.3 MCH 26.4 L MCHC 32.9 RDW 14.0 RDW Differential 41.3 Plt Count 441 MPV 8.9 Immature Gran % (Auto) 0.500 Neut % (Auto) 78.0 H Lymph % (Auto) 8.5 L [place] % (Auto) 10.7 H Eos % (Auto) 1.9 Baso % (Auto) 0.4 Absolute Neuts (auto) 7.2 Absolute Lymphs (auto) 0.79 L Total Counted Not Reportable Sodium 125 L Potassium 4.7 Chloride 94 L Carbon Dioxide 24.0 Anion Gap 7 BUN 7 Creatinine 0.69 L Estim Creat Clear Calc 83.34 Est GFR (MDRD) Af Amer 146 Est GFR (MDRD) Non-Af 121 BUN/Creatinine Ratio 10.1 Glucose 104 Calcium 8.7 Assessment/Plan All Active Problems (Last Reviewed 06/13/18 @ 15:04 by Scarlet Smith, BEHZAD-C) Hyponatremia (Acute) Insomnia (Acute) Dyspnea (Acute) Pneumonia (Acute) Anemia (Acute) Spasm (Acute) The patient is a 67 /o M w/ PMHx: Seizure disorder, Chronic Pain Syndrome, History of Throat CA s/p chemotherapy and radiation remotely noting he has been in remission, Prior TIA versus CVA without deficits, Chronic Normocytic Anemia, HTN, HLD, Anxiety and Depression, Hypothyroidism, Carotid Disease s/p L CEA ~ 1.5 years prior to current presentation, recent PNA admission 05/30/18 discharged w/ planned upcoming lung biopsy on 07/02/18 large infiltrative masslike density within the superior lingula extending into an infiltrating the left hilum and mid mediastinum consistent with neoplasm who now re-presents to the [facility] ED on 06/30/18 with history of general malaise, fatigue, poor sleep x 3 days secondary to frequent spasms noted to have run out of his valium recently but was refilled on 06/30/18 with no marked improvement, excessively fidgeting. (1) Hyponatremia, Acute secondary to suspected poor oral intake, mild dehydration: Admission Na 125, will admit to MS, maintain on IVFs, trend BMP, obtain mag, TSH levels, FeNa, UOsm levels to be thorough. (2) Recent Dx Lung Mass LLL: ATC sanchez, PRN albuterol, noted planned upcoming lung biopsy on 07/02/[address] chest noted large infiltrative masslike density within the superior lingula extending into an infiltrating the left hilum and mid mediastinum consistent with neoplasm. (3) Insomnia, Agitation suspected secondary to Anxiety: Recent notable diagnosis lung mass, upcoming bx, had run out of his valium, will continue home anxiety and depression regimen, PRN haldol, PRN seroquel if needed. (4) Normocytic Anemia, Acute on Chronic, Fe Deficiency Anemia: Admission Hgb 10.6, baseline appears 8-9, stable. Continue home Fe supplementation. (5) Chronic Oropharyngeal Dysphagia: Notes secondary to radiation some difficulty with certain solids, prior admission had declined mechanical soft, however, speech had recommended nectar thick liquids with soft textures which will be ordered. (6) Anxiety and Depression: Maintain on home sertraline, Valium, mirtazapine regimen. (7) Chronic pain syndrome: Maintain on home baclofen, gabapentin, Valium, o xycodone regimen. (8) Hypothyroidism: Continue home synthroid regimen. (9) Hypertension: Continue home regimen including lisinopril, PRN hydralazine. (10) Hyperlipidemia: Continue home statin regimen. (11) Carotid Disease: s/p R CEA 1.5 years prior, holding plavix given planned upcoming biopsy as noted, continue BP regimen, statin. (12) History TIA versus CVA: Holding plavix as noted for upcoming biopsy, continue BP regimen and statin. (13) Tobacco Abuse: Encouraged cessation, inpatient consultation per RT, NR if desired. (14) Seizure Disorder: Continue home carbamazepine regimen. (15) DVT Prophylaxis: SCDs, defer chemoprophylaxis given hemoptysis history with lung mass and upcoming biopsy planned. Code Visit OBSV E&M: 52208 Initial observation care L3
[2018-06-30] MEDS: Haloperidol Lactate 5 MG/ML Vial 2 MG IM (23:08)
[2018-06-30 23:53] VITALS: BP 160/96; PULSE 88; RESP 20; TEMP 36.4; O2SAT 94
[2018-07-01 00:02] VITALS: BMI 27.3
[2018-07-01 00:04] VITALS: BMI 27.3
[2018-07-01] MEDS: 0.9% Normal Saline 1,000 ML 150 ML IV ×2 (00:17→07:06)
[2018-07-01 00:27] LABS: Magnesium 1.7 mg/dL (1.6-2.6); Phosphorus 3.2 mg/dL (2.5-4.9); Thyroid Stim Hormone (TSH) 2.51 uIU/mL (0.358-3.74)
[2018-07-01] MEDS: QUEtiapine 25 MG Tablet PO (00:37)
[2018-07-01 02:58] LABS: Urine Sodium 57 mmol/L (Not Establ.)
[2018-07-01 03:15] LABS: Osmolality, Urine 170 mOsm/KG
[2018-07-01] MEDS: Albuterol 2.5 MG/3 ML VIAL.NEB. INHALATION (03:37)
[2018-07-01 03:40] VITALS: BP 123/71; PULSE 92; PULSE 97; RESP 18; TEMP 36.9; O2SAT 94; O2SAT 97
[2018-07-01 06:22] LABS: Absolute Lymphocyte Count 0.57 X10^3/ul (0.83-4.51); Absolute Neutrophil Count 6.5 X10^3/uL (2.0-7.7); Basophil# 0.02 X10^3/uL; Basophil% 0.2 % (0-1); Eosinophil# 0.27 X10^3/uL; Eosinophils% 3.2 % (0-5); Hematocrit 31.1 % (40-54); Hemoglobin 10.2 g/dl (13.0-16.5); Lymphocyte # 0.57 X10^3/ul (4.0); Lymphocyte % 6.8 % (19-41); Mean Corp Hgb Conc 32.8 g/gl (32-36); Mean Corpuscular Volume 82.3 fL (80-94); Mean Platelet Vol. 9.1 fl (6.2-12.0); Monocyte# 0.93 X10^3/uL; Monocyte% 11.2 % (0-10); Neutrophil % 78.1 % (47-70); Platelet Count 442 K/mm3 (150-450); RBC Distribution Width CV 13.9 % (11.6-14.6); RBC Distribution Width SD 40.3 fl (35.1-43.9); Red Blood Count 3.78 M/mm3 (4.6-6.2); White Blood Count 8.3 K/mm3 (4.4-11.0)
[2018-07-01 06:23] VITALS: PULSE 99; RESP 18; O2SAT 93
[2018-07-01] MEDS: Ipratropium/Albuterol Sulfate 3 ML AMPUL.NEB INHALATION (06:23)
[2018-07-01 06:26] LABS: Anion Gap 11 (5-15); BUN 6 mg/dL (7-18); BUN/Creat Ratio 8.3 RATIO (10-20); Calcium,Total 8.3 mg/dL (8.5-10.1); Chloride 100 mmol/L (98-107); Creatinine, Serum 0.73 mg/dL (0.70-1.30); EST Glomerular Filtration Rate 114 mL/min (>60); Est Glom Filt Rate - Afr Amer 138 mL/min (>60); Estimated Creatinine Clearance 83.34 ml/min; Glucose 112 mg/dL (74-106); Potassium 4.7 mmol/L (3.5-5.1); Sodium Level 132 mmol/L (136-145)
[2018-07-01 06:28] LABS: Differential Indicated SCAN CRITERIA MET; POSITIVE COUNT NO; POSITIVE DIFFERENTIAL YES; POSITIVE MORPHOLOGY NO
[2018-07-01] MEDS: oxyCODONE 5 MG Tablet PO (07:04)
[2018-07-01] MEDS: Levothyroxine 75 MCG Tablet PO (07:04)
[2018-07-01 08:58] VITALS: BP 118/69; PULSE 108; RESP 18; TEMP 36.7; O2SAT 96
[2018-07-01] MEDS: Ferrous Sulfate 325 MG Tablet PO (09:03)
[2018-07-01] MEDS: Fluticasone 0.05% 1 SPRAY NASAL.SRY 2 SPRAY NASAL (09:04)
[2018-07-01] MEDS: Baclofen 10 MG Tablet 5 MG PO (09:05)
[2018-07-01] MEDS: Famotidine 20 MG Tablet PO (09:32)
[2018-07-01] MEDS: Sertraline 100 MG Tablet 200 MG PO (09:32)
[2018-07-01] MEDS: Lisinopril 40 MG Tablet PO (09:32)
[2018-07-01 10:23] LABS: Osmolality, Serum 268 mOsm/KG (280-301)
--- NOTE | 2018-07-01 12:34 | NURSING ---
out to desk, stated that patient wanted AMA form and that he wanted to leave. Dr. Jacobson aware, IV removed, home meds returned, AMA form signed and pt left via wc.
--- NOTE | 2018-07-01 13:34 | PCM.DC.SUM ---
Discharge Date and Diagnosis Date of Admission: 06/30/18 Date of Discharge: 07/01/18 - Primary Discharge Diagnosis hyponatremia anxiety hemoptysis - Secondary Discharge Diagnosis Chronic Problems (Last Reviewed 06/13/18 @ 15:04 by JADA Siddiqi) Lung mass (Chronic) Hemoptysis, unspecified (Chronic) HTN (hypertension) (Chronic) HLD (hyperlipidemia) (Chronic) Hypothyroidism (Chronic) Chronic pain syndrome (Chronic) Carotid arterial disease (Chronic) TIA (transient ischemic attack) (Chronic) Oropharyngeal dysphagia (Chronic) Throat cancer (Chronic) Hospital Course and Treatment Imaging Results: Diagnostic Data Chest X-Ray 06/30/18 20:35 IMPRESSION: Left lower lobe pneumonia. Electronically Signed: Aparna Phillips MD at 21:50 EST Tel , Service support , Operations: None Procedures: None Summary of Care Provided: The patient is a 67 year old M with an extensive past medical history as listed below. He was recently admitted for pneumonia on 05/30/2018 and discharged subsequently. During that admission he was diagnosed with a large left hilar lung mass and was scheduled to have biopsy of the lung mass on 07/02/2018. He was admitted through the ED on 06/30/2018 with a complaint of generalized malaise, fatigue and insomnia as well as frequent spasms. He had run out of his Valium which she had had refilled but still symptoms did not resolve. He was found to have hyponatremia with sodium of 125. He was admitted and managed for hyponatremia and generalized anxiety. Patient was started on IV fluids and Valium was resumed. Sodium improved from 125-132. Patient also complained of hemoptysis during this admission with was not going on since he was admitted for pneumonia about a month ago. Patient had been scheduled for lung biopsy on 07/02/2018. However, patient's came in later and said that the Radiology Dept at [facility] had called her to tell her that the biopsy had been canceled because the machine was broken. Patient and insisted that he be transferred to [facility] where his neurologist was and that they were more comfortable with [facility] doctors. The second option was for transfer to [facility] with a transfer to [facility] fell through. Hospitalist initiated transfer to [facility] by: [facility] transfer line. However before met in hospital code call back, patient decided that he could not wait anymore and decided to sign out AGAINST MEDICAL ADVICE. Patient was counseled about importance of staying for his hyponatremia to be further treated and for him to have a biopsy tomorrow if the machine started working again again. Patient however stated that he was spending another night in [facility] and wanted to leave AGAINST MEDICAL ADVICE. Patient therefore signed out AMA on 07/01/2018. Patient seen and examined prior to discharge he had no complaints and just said he had been unable to sleep throughout the night. He felt very restless but denied any fever chills chest pain shortness review of systems otherwise negative. Labs and vitals reviewed. On examination Vital Signs Height 6 ft 2 in Weight: 212 lb 11.937 oz Weight in Pounds 212.7 lbs Pulse Ox 96 Temperature 98.0 F Pulse Rate 108 Respiratory Rate 18 Blood Pressure 118/69 Blood Pressure Position Semi-Fowlers [] - Physical Exam General: Alert, Oriented x3, Cooperative, No apparent distress, - - restless HEENT: Atraumatic, PERRLA, EOMI, Normocephalic Oral: Moist Mucosa Neck: Supple, No JVD, Negative Carotid Bruits Lungs: Clear to auscultation, Normal air movement, No rhonchi, No wheeze, No rales Cardiovascular: Regular rate, Regular Rhythm, Normal S1, Normal S2, No murmurs Abdomen: Bowel Sounds Present, Soft, Non Tender, Non-Distended, No Hepato-splenomegaly Extremities: No clubbing, No cyanosis, No edema, Capillary Refill Less than 3 Seconds Skin: No rashes, No breakdown Musculoskeletal: No Tenderness to Palpation of Joints or Extremities Lymphatic: No Cervical, Supraclavicular, or Inguinal Adenopathy Neurological: Cranial nerves II-XII grossly intact, Neuro grossly intact, Motor Exam 5/5 strength throughout Psych/Mental Status: Agitated, Anxious, Restless, Alert and oriented to time, place, person, mood and affect Vital Signs Temp Pulse Resp BP Pulse Ox 98.0 F 108 H 18 118/69 96 07/01/18 08:58 07/01/18 08:58 07/01/18 08:58 07/01/18 08:58 07/01/18 08:58 Oxygen Delivery Method Room Air Weight: 212 lb 11.937 oz Body Mass Index (BMI) 27.3 Intake and Output for Last 24 Hours 06/29/18 06/30/18 07/01/18 23:59 23:59 23:59 Intake Total 1101 / 1101 Output Total 1000 / 1000 Balance 101 / 101 Laboratory Tests Past 24 Hrs 06/30/18 06/30/18 06/30/18 20:50 20:50 20:50 WBC 9.3 RBC 4.01 L Hgb 10.6 L Hct 32.2 L MCV 80.3 MCH 26.4 L MCHC 32.9 RDW 14.0 RDW Differential 41.3 Plt Count 441 MPV 8.9 Immature Gran % (Auto) 0.500 Neut % (Auto) 78.0 H Lymph % (Auto) 8.5 L [place] % (Auto) 10.7 H Eos % (Auto) 1.9 Baso % (Auto) 0.4 Absolute Neuts (auto) 7.2 Absolute Lymphs (auto) 0.79 L Total Counted Not Reportable Sodium 125 L Potassium 4.7 Chloride 94 L Carbon Dioxide 24.0 Anion Gap 7 BUN 7 Creatinine 0.69 L Estim Creat Clear Calc 83.34 Est GFR (MDRD) Af Amer 146 Est GFR (MDRD) Non-Af 121 BUN/Creatinine Ratio 10.1 Glucose 104 Serum Osmolality Calcium 8.7 Phosphorus 3.2 Magnesium 1.7 TSH 2.51 Urine Osmolality Ur Random Sodium Urine Creatinine 07/01/18 07/01/18 07/01/18 02:00 02:00 05:30 WBC 8.3 RBC 3.78 L Hgb 10.2 L Hct 31.1 L MCV 82.3 MCH 27.0 MCHC 32.8 RDW 13.9 RDW Differential 40.3 Plt Count 442 MPV 9.1 Immature Gran % (Auto) 0.500 Neut % (Auto) 78.1 H Lymph % (Auto) 6.8 L [place] % (Auto) 11.2 H Eos % (Auto) 3.2 Baso % (Auto) 0.2 Absolute Neuts (auto) 6.5 Absolute Lymphs (auto) 0.57 L Total Counted Not Reportable Sodium Potassium Chloride Carbon Dioxide Anion Gap BUN Creatinine Estim Creat Clear Calc Est GFR (MDRD) Af Amer Est GFR (MDRD) Non-Af BUN/Creatinine Ratio Glucose Serum Osmolality Calcium Phosphorus Magnesium TSH Urine Osmolality 170 Ur Random Sodium 57 Urine Creatinine 14.00 07/01/18 07/01/18 05:30 09:25 WBC RBC Hgb Hct MCV MCH MCHC RDW RDW Differential Plt Count MPV Immature Gran % (Auto) Neut % (Auto) Lymph % (Auto) [place] % (Auto) Eos % (Auto) Baso % (Auto) Absolute Neuts (auto) Absolute Lymphs (auto) Total Counted Sodium 132 L Potassium 4.7 Chloride 100 Carbon Dioxide 21.0 Anion Gap 11 BUN 6 L Creatinine 0.73 Estim Creat Clear Calc 83.34 Est GFR (MDRD) Af Amer 138 Est GFR (MDRD) Non-Af 114 BUN/Creatinine Ratio 8.3 L Glucose 112 H Serum Osmolality 268 L Calcium 8.3 L Phosphorus Magnesium TSH Urine Osmolality Ur Random Sodium Urine Creatinine Diagnostic Data Chest X-Ray 06/30/18 20:35 IMPRESSION: Left lower lobe pneumonia. Electronically Signed: Aparna Phillips MD at 21:50 EST Tel , Service support , Discharge Diet: Low fat/ Low Cholesterol Home Medications: Medications to take at Discharge Acetaminophen Liquid [Tylenol Liquid] ml PO DAILY 05/30/18 Atorvastatin Calcium [Lipitor] 40 mg PO DAILY 05/30/18 Baclofen 5 mg PO BID 05/30/18 Carbamazepine [Carbamazepine ER] 100 mg PO QHS 05/30/18 Ferrous Sulfate 325 mg PO DAILY 05/30/18 Fluticasone 0.05% [Flonase Nasal [place]] 2 spray NASAL DAILY 05/30/18 Gabapentin 6 ml PO QHS 05/30/18 Levothyroxine [Synthroid] 75 mcg PO DAILY 05/30/18 Lisinopril [Zestril] 40 mg PO DAILY 05/30/18 Mirtazapine 15 mg PO QHS 05/30/18 Oxycodone [Oxyir] 10 - 20 mg PO TID 05/30/18 Sertraline HCl [Zoloft] 200 mg PO DAILY 05/30/18 Albuterol Aerosols [Ventolin Aerosols] 2.5 mg INHALATION Q4HWA.RT #90 vial.neb. 06/01/18 Levofloxacin [Levaquin] 750 mg PO DAILY #7 tab 06/01/18 Clopidogrel Bisulfate [Plavix] 75 mg PO DAILY 06/30/18 Ketoconazole [Nizoral] 1 applic TOPICAL BID 06/30/18 Primary Care Physician: Brandan Pino MD [Primary Care Provider] - Please follow up with your Primary Care Physician in: one week Disposition: Against Medical Advice Minutes spent on discharge:: 40 Patient Condition:: Stable Medical Necessity - Tobacco Use Smoking Status: Current every day smoker Tobacco Use: Cigarettes Meaningful Use Info Meaningful Use Diagnoses (Choose all that apply): None applicable Code Visit Inpatient E&M: 32575 [facility]
--- NOTE | 2018-07-01 13:44 | DS.PCM_ITS ---
Discharge Date and Diagnosis Date of Admission: 06/30/18 Date of Discharge: 07/01/18 - Primary Discharge Diagnosis hyponatremia anxiety hemoptysis - Secondary Discharge Diagnosis Chronic Problems (Last Reviewed 06/13/18 @ 15:04 by JADA Siddiqi) Lung mass (Chronic) Hemoptysis, unspecified (Chronic) HTN (hypertension) (Chronic) HLD (hyperlipidemia) (Chronic) Hypothyroidism (Chronic) Chronic pain syndrome (Chronic) Carotid arterial disease (Chronic) TIA (transient ischemic attack) (Chronic) Oropharyngeal dysphagia (Chronic) Throat cancer (Chronic) Hospital Course and Treatment Imaging Results: Diagnostic Data Chest X-Ray 06/30/18 20:35 IMPRESSION: Left lower lobe pneumonia. Electronically Signed: Aparna Phillips MD at 21:50 EST Tel , Service support , Operations: None Procedures: None Summary of Care Provided: The patient is a 67 year old M with an extensive past medical history as listed below. He was recently admitted for pneumonia on 05/30/2018 and discharged subsequently. During that admission he was diagnosed with a large left hilar lung mass and was scheduled to have biopsy of the lung mass on 07/02/2018. He was admitted through the ED on 06/30/2018 with a complaint of generalized malaise, fatigue and insomnia as well as frequent spasms. He had run out of his Valium which she had had refilled but still symptoms did not resolve. He was found to have hyponatremia with sodium of 125. He was admitted and managed for hyponatremia and generalized anxiety. Patient was started on IV fluids and Valium was resumed. Sodium improved from 125-132. Patient also complained of hemoptysis during this admission with was not going on since he was admitted for pneumonia about a month ago. Patient had been scheduled for lung biopsy on 07/02/2018. However, patient's came in later and said that the Radiology Dept at [facility] had called her to tell her that the biopsy had been canceled because the machine was broken. Patient and insisted that he be transferred to [facility] where his neurologist was and that they were more comfortable with [facility] doctors. The second option was for transfer to [facility] with a transfer to [facility] fell through. Hospitalist initiated transfer to [facility] by: [facility] transfer line. However before met in hospital code call back, patient decided that he could not wait anymore and decided to sign out AGAINST MEDICAL ADVICE. Patient was counseled about importance of staying for his hyponatremia to be further treated and for him to have a biopsy tomorrow if the machine started working again again. Patient however stated that he was spending another night in [facility] and wanted to leave AGAINST MEDICAL ADVICE. Patient therefore signed out AMA on 07/01/2018. Patient seen and examined prior to discharge he had no complaints and just said he had been unable to sleep throughout the night. He felt very restless but denied any fever chills chest pain shortness review of systems otherwise negative. Labs and vitals reviewed. On examination Vital Signs Height 6 ft 2 in Weight: 212 lb 11.937 oz Weight in Pounds 212.7 lbs Pulse Ox 96 Temperature 98.0 F Pulse Rate 108 Respiratory Rate 18 Blood Pressure 118/69 Blood Pressure Position Semi-Fowlers [] - Physical Exam General: Alert, Oriented x3, Cooperative, No apparent distress, - - restless HEENT: Atraumatic, PERRLA, EOMI, Normocephalic Oral: Moist Mucosa Neck: Supple, No JVD, Negative Carotid Bruits Lungs: Clear to auscultation, Normal air movement, No rhonchi, No wheeze, No rales Cardiovascular: Regular rate, Regular Rhythm, Normal S1, Normal S2, No murmurs Abdomen: Bowel Sounds Present, Soft, Non Tender, Non-Distended, No Hepato- splenomegaly Extremities: No clubbing, No cyanosis, No edema, Capillary Refill Less than 3 Seconds Skin: No rashes, No breakdown Musculoskeletal: No Tenderness to Palpation of Joints or Extremities Lymphatic: No Cervical, Supraclavicular, or Inguinal Adenopathy Neurological: Cranial nerves II-XII grossly intact, Neuro grossly intact, Motor Exam 5/5 strength throughout Psych/Mental Status: Agitated, Anxious, Restless, Alert and oriented to time, place, person, mood and affect Vital Signs Temp Pulse Resp BP Pulse Ox 98.0 F 108 H 18 118/69 96 07/01/18 08:58 07/01/18 08:58 07/01/18 08:58 07/01/18 08:58 07/01/18 08:58 Oxygen Delivery Method Room Air Weight: 212 lb 11.937 oz Body Mass Index (BMI) 27.3 Intake and Output for Last 24 Hours 06/29/18 06/30/18 07/01/18 23:59 23:59 23:59 Intake Total 1101 / 1101 Output Total 1000 / 1000 Balance 101 / 101 Laboratory Tests Past 24 Hrs 06/30/18 06/30/18 06/30/18 20:50 20:50 20:50 WBC 9.3 RBC 4.01 L Hgb 10.6 L Hct 32.2 L MCV 80.3 MCH 26.4 L MCHC 32.9 RDW 14.0 RDW Differential 41.3 Plt Count 441 MPV 8.9 Immature Gran % (Auto) 0.500 Neut % (Auto) 78.0 H Lymph % (Auto) 8.5 L [place] % (Auto) 10.7 H Eos % (Auto) 1.9 Baso % (Auto) 0.4 Absolute Neuts (auto) 7.2 Absolute Lymphs (auto) 0.79 L Total Counted Not Reportable Sodium 125 L Potassium 4.7 Chloride 94 L Carbon Dioxide 24.0 Anion Gap 7 BUN 7 Creatinine 0.69 L Estim Creat Clear Calc 83.34 Est GFR (MDRD) Af Amer 146 Est GFR (MDRD) Non-Af 121 BUN/Creatinine Ratio 10.1 Glucose 104 Serum Osmolality Calcium 8.7 Phosphorus 3.2 Magnesium 1.7 TSH 2.51 Urine Osmolality Ur Random Sodium Urine Creatinine 07/01/18 07/01/18 07/01/18 02:00 02:00 05:30 WBC 8.3 RBC 3.78 L Hgb 10.2 L Hct 31.1 L MCV 82.3 MCH 27.0 MCHC 32.8 RDW 13.9 RDW Differential 40.3 Plt Count 442 MPV 9.1 Immature Gran % (Auto) 0.500 Neut % (Auto) 78.1 H Lymph % (Auto) 6.8 L [place] % (Auto) 11.2 H Eos % (Auto) 3.2 Baso % (Auto) 0.2 Absolute Neuts (auto) 6.5 Absolute Lymphs (auto) 0.57 L Total Counted Not Reportable Sodium Potassium Chloride Carbon Dioxide Anion Gap BUN Creatinine Estim Creat Clear Calc Est GFR (MDRD) Af Amer Est GFR (MDRD) Non-Af BUN/Creatinine Ratio Glucose Serum Osmolality Calcium Phosphorus Magnesium TSH Urine Osmolality 170 Ur Random Sodium 57 Urine Creatinine 14.00 07/01/18 07/01/18 05:30 09:25 WBC RBC Hgb Hct MCV MCH MCHC RDW RDW Differential Plt Count MPV Immature Gran % (Auto) Neut % (Auto) Lymph % (Auto) [place] % (Auto) Eos % (Auto) Baso % (Auto) Absolute Neuts (auto) Absolute Lymphs (auto) Total Counted Sodium 132 L Potassium 4.7 Chloride 100 Carbon Dioxide 21.0 Anion Gap 11 BUN 6 L Creatinine 0.73 Estim Creat Clear Calc 83.34 Est GFR (MDRD) Af Amer 138 Est GFR (MDRD) Non-Af 114 BUN/Creatinine Ratio 8.3 L Glucose 112 H Serum Osmolality 268 L Calcium 8.3 L Phosphorus Magnesium TSH Urine Osmolality Ur Random Sodium Urine Creatinine Diagnostic Data Chest X-Ray 06/30/18 20:35 IMPRESSION: Left lower lobe pneumonia. Electronically Signed: Aparna Phillips MD at 21:50 EST Tel , Service support , Discharge Diet: Low fat/ Low Cholesterol Home Medications: Medications to take at Discharge Acetaminophen Liquid [Tylenol Liquid] ml PO DAILY 05/30/18 Atorvastatin Calcium [Lipitor] 40 mg PO DAILY 05/30/18 Baclofen 5 mg PO BID 05/30/18 Carbamazepine [Carbamazepine ER] 100 mg PO QHS 05/30/18 Ferrous Sulfate 325 mg PO DAILY 05/30/18 Fluticasone 0.05% [Flonase Nasal [place]] 2 spray NASAL DAILY 05/30/18 Gabapentin 6 ml PO QHS 05/30/18 Levothyroxine [Synthroid] 75 mcg PO DAILY 05/30/18 Lisinopril [Zestril] 40 mg PO DAILY 05/30/18 Mirtazapine 15 mg PO QHS 05/30/18 Oxycodone [Oxyir] 10 - 20 mg PO TID 05/30/18 Sertraline HCl [Zoloft] 200 mg PO DAILY 05/30/18 Albuterol Aerosols [Ventolin Aerosols] 2.5 mg INHALATION Q4HWA.RT #90 vial.neb. 06/01/18 Levofloxacin [Levaquin] 750 mg PO DAILY #7 tab 06/01/18 Clopidogrel Bisulfate [Plavix] 75 mg PO DAILY 06/30/18 Ketoconazole [Nizoral] 1 applic TOPICAL BID 06/30/18 Primary Care Physician: Brandan Pino MD [Primary Care Provider] - Please follow up with your Primary Care Physician in: one week Disposition: Against Medical Advice Minutes spent on discharge:: 40 Patient Condition:: Stable Medical Necessity - Tobacco Use Smoking Status: Current every day smoker Tobacco Use: Cigarettes Meaningful Use Info Meaningful Use Diagnoses (Choose all that apply): None applicable Code Visit Inpatient E&M: 32290 [facility]osp
== END 2018-07-01 12:38 | disposition left against medical advice (07) ==
LOC: ED 20:41 → MS3 23:01
PROVIDERS: Admitting Provider Family Medicine; Emergency Provider Emergency Medicine; Family Provider Family Medicine; PCP Family Medicine; Visit Provider Student in an Organized Health Care Education/Training Program
DX: E87.1 Hypo-osmolality and hyponatremia (principal); F41.9 Anxiety disorder, unspecified; R04.2 Hemoptysis; I10 Essential (primary) hypertension; E78.5 Hyperlipidemia, unspecified; G89.4 Chronic pain syndrome; E03.9 Hypothyroidism, unspecified; R13.12 Dysphagia, oropharyngeal phase; R91.8 Other nonspecific abnormal finding of lung field; Z85.89 Personal history of malignant neoplasm of other organs and systems; Z86.718 Personal history of other venous thrombosis and embolism; Z92.21 Personal history of antineoplastic chemotherapy; Z92.3 Personal history of irradiation; F32.9 Major depressive disorder, single episode, unspecified; G40.909 Epilepsy, unspecified, not intractable, without status epilepticus; Z87.01 Personal history of pneumonia (recurrent); F17.210 Nicotine dependence, cigarettes, uncomplicated; R45.1 Restlessness and agitation
CPT/HCPCS: 36415; 71045; 80048; 82570; 83735; 83930; 83935; 84100; 84300; 84443; 85025; 93005; 94640; 96360; 96361; 96372; 97161; 97166; 99218; 99283; J7030; J7040; G0378

== ENCOUNTER 2018-07-25 17:00 | Inpatient (IN) | payer MEDICARE, SELFPAY ==
[2018-07-25] VITALS (15 sets, daily range): BP systolic 86–108; BP diastolic 54–85; PULSE 71–108; RESP 12–18; TEMP 36.2–36.9; O2SAT 92–96; BMI 26.9; BMI 27.1; BMI 27.2
--- NOTE | 2018-07-25 17:16 | EKG12_ITS ---
Test Reason : SOB Blood Pressure : / mmHG Vent. Rate : 103 BPM Atrial Rate : 103 BPM P-R Int : 200 ms QRS Dur : 092 ms QT Int : 338 ms P-R-T Axes : 034 -19 005 degrees QTc Int : 442 ms Sinus tachycardia Inferior infarct , age undetermined Abnormal ECG Confirmed by TAINA CIFUENTES, WILBUR ([id number]), photo editor BEE KIMBROUGH ([id number]) on 07/27/2018 2:00:09 PM Referred By: Sid Pearce Confirmed By:WILBUR HER MD
--- NOTE | 2018-07-25 17:16 | RAD_ITS ---
STUDY: X-RAY CHEST REASON FOR EXAM: Male, 67 years old. Worsening chest pain TECHNIQUE: Single AP portable view of the chest. COMPARISON: 06/30/2018 FINDINGS: EKG leads overlie the chest Cyst lungs are expanded. Right lung is unremarkable aside from platelike atelectasis in the right lung base. There is opacification in the left lower lobe with blunting of left costophrenic angle suggesting a likely combination of infiltrate and effusion. Follow-up recommended to assure resolution. Normal size heart. Normal mediastinum and juan. Normal visualized pulmonary arteries. There is atherosclerotic calcification of the aortic arch with tortuosity. There are diffuse degenerative changes of the visualized thoracic spine. There is degenerative osteoarthritis of the bilateral shoulders. There is no demonstrated abnormality of the visualized soft tissue structures of the upper abdomen. RAD/Chest 1 View (Portable) IMPRESSION: Left lower lobe infiltrate with pleural effusion follow-up recommended to assure resolution Platelike atelectasis in the right base Electronically Signed: Isai Pineda MD at 18:06 EST , Service support ,
[2018-07-25 17:45] LABS: Base Excess -4 mmol/L (-2 to +2); Bicarbonate 21.6 mmol/L (22-26); Blood Gas Specimen Type ART; O2 Delivery Device NRB Mask; PO2 71 mmHG (75-100); SITE L Brachial; SO2 93 % (95-99); Time Given 1730; Total Carbon Dioxide 23 mmol/L; pH 7.33 (7.35-7.45)
[2018-07-25 17:49] LABS: Absolute Lymphocyte Count 0.72 X10^3/ul (0.83-4.51); Absolute Neutrophil Count 8.7 X10^3/uL (2.0-7.7); Basophil# 0.02 X10^3/uL; Basophil% 0.2 % (0-1); Eosinophil# 0.05 X10^3/uL; Eosinophils% 0.5 % (0-5); Hematocrit 31.9 % (40-54); Hemoglobin 10.3 g/dl (13.0-16.5); Lymphocyte # 0.72 X10^3/ul (4.0); Lymphocyte % 7.4 % (19-41); Mean Corp Hgb Conc 32.3 g/gl (32-36); Mean Corpuscular Hgb 25.3 pg (27.0-32.0); Mean Corpuscular Volume 78.4 fL (80-94); Mean Platelet Vol. 8.8 fl (6.2-12.0); Monocyte# 0.24 X10^3/uL; Monocyte% 2.5 % (0-10); Neutrophil % 88.9 % (47-70); Platelet Count 418 K/mm3 (150-450); RBC Distribution Width CV 15.1 % (11.6-14.6); RBC Distribution Width SD 43.3 fl (35.1-43.9); Red Blood Count 4.07 M/mm3 (4.6-6.2); White Blood Count 9.8 K/mm3 (4.4-11.0)
[2018-07-25 17:51] LABS: POSITIVE COUNT NO; POSITIVE DIFFERENTIAL NO; POSITIVE MORPHOLOGY NO
[2018-07-25 18:07] LABS: Anion Gap 14 (5-15); BUN 31 mg/dL (7-18); BUN/Creat Ratio 10.5 RATIO (10-20); Calcium,Total 9.1 mg/dL (8.5-10.1); Chloride 90 mmol/L (98-107); Creatinine, Serum 2.96 mg/dL (0.70-1.30); EST Glomerular Filtration Rate 23 mL/min (>60); Est Glom Filt Rate - Afr Amer 27 mL/min (>60); Estimated Creatinine Clearance 28.16 ml/min; Glucose 132 mg/dL (74-106); Potassium 4.6 mmol/L (3.5-5.1); Sodium Level 128 mmol/L (136-145)
[2018-07-25 18:12] LABS: Lactic Acid 1.2 mmol/L (0.4-2.0)
[2018-07-25 18:13] LABS: International Normalized Ratio 11.1
--- NOTE | 2018-07-25 19:53 | ED.VISSUMM ---
- ER Visit Summary Date of Service: 07/25/18 Chief Complaint: Shortness of breath History of Present Illness: The patient is a 67 M presenting with shortness of breath. Patient was seen by Dr. Pearce today. He was concerned for shortness of breath and lethargy. Patient's states he has been sleepy over the past 2 days. He has fallen twice due to generalized weakness. Patient has a history of recently diagnosed metastatic lung cancer. He was treated at [facility] at the end of June and had a bronchial stent placed at that time. He is now awaiting chemotherapy and radiation. He had a recent PET scan which showed metastases. Patient denies chest pain. Denies fever. Physical Examination: Vitals are stable. Patient is afebrile. Alert no acute distress. Pulse ox 92% on nonrebreather mask HEENT exam is unremarkable. Neck is supple. Lungs are diminished bilaterally. Heart is regular and tachycardic Abdomen is soft nontender nondistended. Extremities are unremarkable. Skin is warm and dry. No focal neurologic deficit. Remainder of exam is unremarkable. Emergency Department Course and Treatment: EKG is sinus tachycardia rate of 103. Chest x-ray shows left lower lobe infiltrate/pleural effusion. CBC shows a hemoglobin 10.3, hematocrit 31.9. Chemistries show sodium 128, glucose 132, BUN 31, creatinine 2.96. INR is 11.1. Troponin is negative. ABG shows pH 7.33, PCO2 41, PO2 71. Blood cultures were sent. He was given vancomycin and Zosyn. He is now satting 90% on 6 L. Discussed with patient and his . He does not want any heroic measures including intubation if necessary. He would like to be DNR CCA, no intubation. Patient does not wish to be transferred to [facility]. Discussed with Dr. Pearce and the hospitalist for admission. Disposition: Admission Impression: Left pleural effusion/infiltrate; DANA; Supratherapeutic INR; hyponatremia; history of metastatic lung cancer This note was generated with [employer] dictation software. It may contain incorrect words, spelling, and punctuation that were not noted in review of the chart prior to signing ED Disposition - Plan for ED Patient: Chief Complaint: Shortness of Breath Referrals: Brandan Pino MD [Primary Care Provider] -
--- NOTE | 2018-07-25 19:58 | ED.DCSUM_ITS ---
- ER Visit Summary Date of Service: 07/25/18 Chief Complaint: Shortness of breath History of Present Illness: The patient is a 67 M presenting with shortness of breath. Patient was seen by Dr. Pearce today. He was concerned for shortness of breath and lethargy. Patient's states he has been sleepy over the past 2 days. He has fallen twice due to generalized weakness. Patient has a history of recently diagnosed metastatic lung cancer. He was treated at [facility] at the end of June and had a bronchial stent placed at that time. He is now awaiting chemotherapy and radiation. He had a recent PET scan which showed metastases. Patient denies chest pain. Denies fever. Physical Examination: Vitals are stable. Patient is afebrile. Alert no acute distress. Pulse ox 92% on nonrebreather mask HEENT exam is unremarkable. Neck is supple. Lungs are diminished bilaterally. Heart is regular and tachycardic Abdomen is soft nontender nondistended. Extremities are unremarkable. Skin is warm and dry. No focal neurologic deficit. Remainder of exam is unremarkable. Emergency Department Course and Treatment: EKG is sinus tachycardia rate of 103. Chest x-ray shows left lower lobe infiltrate/pleural effusion. CBC shows a hemoglobin 10.3, hematocrit 31.9. Chemistries show sodium 128, glucose 132, BUN 31, creatinine 2.96. INR is 11.1. Troponin is negative. ABG shows pH 7.33, PCO2 41, PO2 71. Blood cultures were sent. He was given vancomycin and Zosyn. He is now satting 90% on 6 L. Discussed with patient and his . He does not want any heroic measures including intubation if necessary. He would like to be DNR CCA, no intubation. Patient does not wish to be transferred to [facility]. Discussed with Dr. Pearce and the hospitalist for admission. Disposition: Admission Impression: Left pleural effusion/infiltrate; DANA; Supratherapeutic INR; hyponatremia; history of metastatic lung cancer This note was generated with [employer] dictation software. It may contain incorrect words, spelling, and punctuation that were not noted in review of the chart prior to signing ED Disposition - Plan for ED Patient: Chief Complaint: Shortness of Breath Referrals: Brandan Pino MD [Primary Care Provider] -
[2018-07-25] MEDS: 0.9% Normal Saline 1,000 ML 999 ML IV (21:18)
--- NOTE | 2018-07-25 21:42 | PCM.HP.STD ---
History of Present Illness Date of Admission: 07/25/18 Chief Complaint: Shortness of breath The patient is a 67 year old M with past medical history of recently diagnosed metastatic lung cancer was admitted through the ED on 07/25/2018. He was seen by his oncologist Dr. Pearec today to establish goals of care and was there his states that he was very short of breath and lethargic and he was found to be saturating at 57%. also said he had been very lethargic over the past couple of days and had fallen twice due to generalized weakness. He had a bronchial stent placed at [facility] at the end of June and is now awaiting radiation and chemotherapy. He denied any assisted fever or chills, any cough or chest pain, any abdominal pain, any diarrhea vomiting. Review of systems otherwise negative. Admission in the ED, he was noted to be hypotensive with blood pressure in the 60s which subsequently came up to the 90s after he was hydrated with IV fluids. Oxygen saturation came up to 92% on 6 L of oxygen via nonrebreather mask. EKG shows sinus tachycardia with heart rate of 103 and chest x-ray showed left lower lobe infiltrate and pleural effusion. CBC showed hemoglobin of 10.3 and chemistry shows sodium of 128 with creatinine of 2.96. INR was 11.1. ABG done showed pH of 7.33 with PCO2 of 41 and PO2 of 71. Blood cultures were obtained he was started on IV vancomycin and Zosyn in the ED. Patient informed ED doctor that he wanted to be DNR CCA and did not want to intubated or sedated. However during my review after discussing CODE STATUS and goals of care with the patient and his , patient said he wanted to be full code and wanted to be intubated and CPR done as well as central line placed if needed. Patient refused transfer to [facility] [place] and is been admitted to be managed for acute hypoxic respiratory failure due to metastatic lung cancer and likely malignant pleural effusion. [] Past Medical History Past Medical History (Chronic Problems): Chronic Problems (Last Reviewed 06/13/18 @ 15:04 by Scarlet Smith NP-C) Lung mass (Chronic) Hemoptysis, unspecified (Chronic) HTN (hypertension) (Chronic) HLD (hyperlipidemia) (Chronic) Hypothyroidism (Chronic) Chronic pain syndrome (Chronic) Carotid arterial disease (Chronic) TIA (transient ischemic attack) (Chronic) Oropharyngeal dysphagia (Chronic) Throat cancer (Chronic) Medical History: Medical History (Last Reviewed 06/13/18 @ 15:04 by Scarlet Smith NP-C) Pneumonia (Acute) J18.9 Hemoptysis, unspecified (Chronic) R04.2 HTN (hypertension) (Chronic) I10 HLD (hyperlipidemia) (Chronic) E78.5 Hypothyroidism (Chronic) E03.9 Chronic pain syndrome (Chronic) G89.4 Carotid arterial disease (Chronic) I77.9 TIA (transient ischemic attack) (Chronic) G45.9 Oropharyngeal dysphagia (Chronic) R13.12 Throat cancer (Chronic) C14.0 Anemia (Acute) D64.9 Spasm (Acute) R25.2 DVT (deep venous thrombosis) I82.409 Enlargement of lymph node R59.9 Head and neck cancer C76.0 Multiple lacunar infarcts I63.81 Depression F32.9 Esophageal stenosis K22.2 Sensorineural hearing loss H90.5 bilateral coronary artery stenosis Allergies bupropion Adverse Reaction (Intermediate, Verified 07/01/18 00:02) Other-dystonia Home Medications: Ambulatory Orders Medication Instructions Recorded Acetaminophen Liquid [Tylenol 20 ml PO DAILY 05/30/18 Liquid] Atorvastatin Calcium [Lipitor] 40 mg PO DAILY 05/30/18 Baclofen 5 mg PO BID 05/30/18 Carbamazepine [Carbamazepine ER] 100 mg PO QHS 05/30/18 Gabapentin 6 ml PO QHS 05/30/18 Levothyroxine [Synthroid] 75 mcg PO DAILY 05/30/18 Lisinopril [Zestril] 20 mg PO DAILY 05/30/18 Mirtazapine 15 mg PO QHS 05/30/18 Oxycodone [Oxyir] 20 - 40 mg PO TID 05/30/18 Sertraline HCl [Zoloft] 200 mg PO DAILY 05/30/18 Albuterol Aerosols [Ventolin 2.5 mg INHALATION Q4HWA.RT #90 06/01/18 Aerosols] vial.neb. Ketoconazole [Nizoral] 1 applic TOPICAL BID 06/30/18 Acetylcysteine 4 ml IH Q6H 07/25/18 Diazepam 2 mg PO TID PRN 07/25/18 Melatonin 9 mg PO QHS 07/25/18 Metoprolol Tartrate [Lopressor 50 mg PO BID 07/25/18 (Beta Darwin)] Warfarin [Coumadin (PBKC)] 2 mg PO DAILY 07/25/18 traZODone [Desyrel] 50 mg PO QHS 07/25/18 Surgical History: Surgical History (Last Reviewed 06/13/18 @ 15:04 by JDAA Siddiqi) History of left-sided carotid endarterectomy Z98.890 Surgical History: - - R CEA, Vasectomy. Psychiatric History: Anxiety, Depression Smoking Status: Current every day smoker Alcohol: None Drugs: None - *Family History Maternal Family History: Family History (Last Reviewed 06/13/18 @ 15:04 by JADA Siddiqi) Father Diabetes Heart disease CVA (cerebral vascular accident) Mother Dementia History Items: - - Patient notes a paternal family history of hypertension and dementia. Paternal Family History: Family History (Last Reviewed 06/13/18 @ 15:04 by JADA Siddiqi) Father Diabetes Heart disease CVA (cerebral vascular accident) Mother Dementia History Items: - - Patient notes a paternal family history of diabetes, hypertension, heart disease. Review of Systems Constitutional: Reports: Malaise, Weakness, Fatigue. Denies: Chills, Fever, Weight Change Eyes: Denies: Blurred vision HEENT: Denies: Head Aches, Sinus Congestion, Sinus Drainage Cardiovascular: Denies: Chest Pain, Palpitations Respiratory: Reports: Shortness of Breath, Shortness of breath at rest, Shortness of breath upon exertion. Denies: Sputum production, Wheezing Gastrointestinal: Denies: Abdominal Pain, Nausea, Vomiting Genitourinary: Denies: Dysuria Musculoskeletal: Denies: Joint Pain, Joint Tenderness Skin: Denies: Rash, Wounds Neurological: Reports: Confusion. Denies: Focal weakness, Numbness, Tingling Psychiatric: Denies: Anxiety, Depression, Homicidal Ideations, Suicidal Ideations Hematologic/ Lymphatic: Denies: Easy Bruising, Easy Bleeding VTE Information - Inpt Only VTE Present on Admission: No VTE Mechan Device Prophylaxis: SCD's VTE Pharm Prophylaxis ordered?: No Reason prophylaxis not ordered:: Medical Contraindication - elevated INR - Physical Exam General: Cooperative, No apparent distress, Lethargic HEENT: Atraumatic, PERRLA, EOMI, Normocephalic Oral: Dry Mucosa Neck: Supple, No JVD, Negative Carotid Bruits Lungs: - - markedly decreased breath sounds in left mid and lower lung feldman. Few crackles auscultated in right lower lung feldman Cardiovascular: Regular rate, Regular Rhythm, Normal S1, Normal S2, No murmurs Abdomen: Bowel Sounds Present, Soft, Non Tender, Non-Distended, No Hepato-splenomegaly Extremities: No clubbing, No cyanosis, No edema, Capillary Refill Less than 3 Seconds Musculoskeletal: No Tenderness to Palpation of Joints or Extremities Lymphatic: No Cervical, Supraclavicular, or Inguinal Adenopathy Neurological: Cranial nerves II-XII grossly intact, Neuro grossly intact, Motor Exam 5/5 strength throughout Psych/Mental Status: Restless, -, Alert and oriented to time, place, person, mood and affect Vital Signs Temp Pulse Resp BP Pulse Ox 97.6 F L 94 15 86/63 L 92 07/25/18 21:32 07/25/18 21:32 07/25/18 21:32 07/25/18 21:32 07/25/18 21:32 Oxygen Flow Rate (L/min) 4 Oxygen Delivery Method Nasal Cannula Weight: 210 lb Body Mass Index (BMI) 26.9 Laboratory Tests Past 24 Hrs 07/25/18 07/25/18 07/25/18 17:30 17:30 17:30 WBC 9.8 RBC 4.07 L Hgb 10.3 L Hct 31.9 L MCV 78.4 L MCH 25.3 L MCHC 32.3 RDW 15.1 H RDW Differential 43.3 Plt Count 418 MPV 8.8 Immature Gran % (Auto) 0.500 Neut % (Auto) 88.9 H Lymph % (Auto) 7.4 L [place] % (Auto) 2.5 Eos % (Auto) 0.5 Baso % (Auto) 0.2 Absolute Neuts (auto) 8.7 H Absolute Lymphs (auto) 0.72 L Total Counted Not Reportable PT 88.0 H INR 11.1 H* Specimen Type Sample Site pH Bicarbonate Actual POC Total CO2 Base Excess O2 Saturation ABG pCO2 ABG pO2 Andrew Test O2 Delivery Device Liter Flow Blood Gas Notified Whom Blood Gas Notified Time Sodium 128 L Potassium 4.6 Chloride 90 L Carbon Dioxide 24.0 Anion Gap 14 BUN 31 H Creatinine 2.96 H Estim Creat Clear Calc 28.16 Est GFR (MDRD) Af Amer 27 L Est GFR (MDRD) Non-Af 23 L BUN/Creatinine Ratio 10.5 Glucose 132 H Lactic Acid Calcium 9.1 Troponin I < 0.015 07/25/18 07/25/18 17:30 17:39 WBC RBC Hgb Hct MCV MCH MCHC RDW RDW Differential Plt Count MPV Immature Gran % (Auto) Neut % (Auto) Lymph % (Auto) [place] % (Auto) Eos % (Auto) Baso % (Auto) Absolute Neuts (auto) Absolute Lymphs (auto) Total Counted PT INR Specimen Type ART Sample Site L Brachial pH 7.33 L Bicarbonate Actual 21.6 L POC Total CO2 23 Base Excess -4 L O2 Saturation 93 L ABG pCO2 41.0 ABG pO2 71 L Andrew Test NA O2 Delivery Device NRB Mask Liter Flow 15.0 Blood Gas Notified Whom ED MD Blood Gas Notified Time 1730 Sodium Potassium Chloride Carbon Dioxide Anion Gap BUN Creatinine Estim Creat Clear Calc Est GFR (MDRD) Af Amer Est GFR (MDRD) Non-Af BUN/Creatinine Ratio Glucose Lactic Acid 1.2 Calcium Troponin I Diagnostic Data Chest X-Ray 07/25/18 17:16 IMPRESSION: Left lower lobe infiltrate with pleural effusion follow-up recommended to assure resolution Platelike atelectasis in the right base Electronically Signed: Isai Pineda MD at 18:06 EST , Service support , Assessment/Plan All Active Problems (Last Reviewed 06/13/18 @ 15:04 by Scarlet Smith, BEHZAD-C) Hyponatremia (Acute) Insomnia (Acute) Dyspnea (Acute) Pneumonia (Acute) Anemia (Acute) Spasm (Acute) 67 y/o male iwth a history of recently diagnosed metastatic lung cancer presenting with a complaint of SOB 1. Acute hypoxic respiratory failure due to pleural effusion, likely malignant Was saturating at 57% and his oncologist office and this came up to 95% in the ED when placed on 6 L of oxygen. X-ray showed left-sided pleural effusion with possible infiltrate. Had a bronchial stent placed in [facility] [place] at the end of June for metastatic lung cancer. Admit to PCU with telemetry. Continue oxygen to maintain saturation above 92%. Consult oncology and pulmonology. Will likely need thoracentesis. INR is currently 11.1 so we will give vitamin K to reverse INR and hold Coumadin. INR in the morning. If it has dropped, will refer to radiology for thoracentesis. blood cultures obtained started on IV vancomycin and zosyn in the ED 2. Metastatic lung cancer: recently diagnosed. S/p stent placement to [facility]. Patient refused transfer to [facility] [place] for this admission. 3. Left-sided pleural effusion, likely malignant: Management is under 1. 4. Hypontaremia: Sodium is 128. Likely due to dehydration and decreased intake. Will hydrate and monitor. 5. DANA: Cr is 2.96 with baseline being less than 1. Likely prerenal due to decreased intake. Will hydrate and monitor. If creatinine does not improve, will consider nephrology consult. Kidney and bladder USG 6. Supratherapeutic INR: INR is 11.1. Will hold Coumadin and give p.o. vitamin K to reverse INR in preparation for possible thoracentesis. 7. Anemia: Hb is 10.3, is a microcytic, hypochromic anemia. Will monitor 8. Afib: On metoprolol. On Coumadin. Will hold on account of elevated INR. 9. Depression: On trazodone. Will continue. 10. Hypothyroidism: On levothyroxine. 11. Hypertension: On lisinopril metoprolol DVT prophylaxis: SCDs CODE STATUS: Full code Patient and counseled extensively about different types of CODE STATUS including full code, DNR CCA and DNR CCA. Patient elects to be full code. Total [id number] time 20 minutes. Code Visit Inpatient E&M: 81610 Init Hosp L3 Procedures: 86921 Advncd Care Plan 30 Min
--- NOTE | 2018-07-25 21:46 | HP.PCM_ITS ---
History of Present Illness Date of Admission: 07/25/18 Chief Complaint: Shortness of breath The patient is a 67 year old M with past medical history of recently diagnosed metastatic lung cancer was admitted through the ED on 07/25/2018. He was seen by his oncologist Dr. Pearce today to establish goals of care and was there his states that he was very short of breath and lethargic and he was found to be saturating at 57%. also said he had been very lethargic over the past couple of days and had fallen twice due to generalized weakness. He had a bronchial stent placed at [facility] at the end of June and is now awaiting radiation and chemotherapy. He denied any assisted fever or chills, any cough or chest pain, any abdominal pain, any diarrhea vomiting. Review of systems otherwise negative. Admission in the ED, he was noted to be hypotensive with blood pressure in the 60s which subsequently came up to the 90s after he was hydrated with IV fluids. Oxygen saturation came up to 92% on 6 L of oxygen via nonrebreather mask. EKG shows sinus tachycardia with heart rate of 103 and chest x-ray showed left lower lobe infiltrate and pleural effusion. CBC showed hemoglobin of 10.3 and chemistry shows sodium of 128 with creatinine of 2.96. INR was 11.1. ABG done showed pH of 7.33 with PCO2 of 41 and PO2 of 71. Blood cultures were obtained he was started on IV vancomycin and Zosyn in the ED. Patient informed ED doctor that he wanted to be DNR CCA and did not want to intubated or sedated. However during my review after discussing CODE STATUS and goals of care with the patient and his , patient said he wanted to be full code and wanted to be intubated and CPR done as well as central line placed if needed. Patient refused transfer to [facility] and is been admitted to be managed for acute hypoxic respiratory failure due to metastatic lung cancer and likely malignant pleural effusion. [] Past Medical History Past Medical History (Chronic Problems): Chronic Problems (Last Reviewed 06/13/18 @ 15:04 by Scarlet Smith NP-C) Lung mass (Chronic) Hemoptysis, unspecified (Chronic) HTN (hypertension) (Chronic) HLD (hyperlipidemia) (Chronic) Hypothyroidism (Chronic) Chronic pain syndrome (Chronic) Carotid arterial disease (Chronic) TIA (transient ischemic attack) (Chronic) Oropharyngeal dysphagia (Chronic) Throat cancer (Chronic) Medical History: Medical History (Last Reviewed 06/13/18 @ 15:04 by Scarlet Smith NP-C) Pneumonia (Acute) J18.9 Hemoptysis, unspecified (Chronic) R04.2 HTN (hypertension) (Chronic) I10 HLD (hyperlipidemia) (Chronic) E78.5 Hypothyroidism (Chronic) E03.9 Chronic pain syndrome (Chronic) G89.4 Carotid arterial disease (Chronic) I77.9 TIA (transient ischemic attack) (Chronic) G45.9 Oropharyngeal dysphagia (Chronic) R13.12 Throat cancer (Chronic) C14.0 Anemia (Acute) D64.9 Spasm (Acute) R25.2 DVT (deep venous thrombosis) I82.409 Enlargement of lymph node R59.9 Head and neck cancer C76.0 Multiple lacunar infarcts I63.81 Depression F32.9 Esophageal stenosis K22.2 Sensorineural hearing loss H90.5 bilateral coronary artery stenosis Allergies bupropion Adverse Reaction (Intermediate, Verified 07/01/18 00:02) Other-dystonia Home Medications: Ambulatory Orders Medication Instructions Recorded Acetaminophen Liquid [Tylenol 20 ml PO DAILY 05/30/18 Liquid] Atorvastatin Calcium [Lipitor] 40 mg PO DAILY 05/30/18 Baclofen 5 mg PO BID 05/30/18 Carbamazepine [Carbamazepine ER] 100 mg PO QHS 05/30/18 Gabapentin 6 ml PO QHS 05/30/18 Levothyroxine [Synthroid] 75 mcg PO DAILY 05/30/18 Lisinopril [Zestril] 20 mg PO DAILY 05/30/18 Mirtazapine 15 mg PO QHS 05/30/18 Oxycodone [Oxyir] 20 - 40 mg PO TID 05/30/18 Sertraline HCl [Zoloft] 200 mg PO DAILY 05/30/18 Albuterol Aerosols [Ventolin 2.5 mg INHALATION Q4HWA.RT #90 06/01/18 Aerosols] vial.neb. Ketoconazole [Nizoral] 1 applic TOPICAL BID 06/30/18 Acetylcysteine 4 ml IH Q6H 07/25/18 Diazepam 2 mg PO TID PRN 07/25/18 Melatonin 9 mg PO QHS 07/25/18 Metoprolol Tartrate [Lopressor 50 mg PO BID 07/25/18 (Beta Darwin)] Warfarin [Coumadin (PBKC)] 2 mg PO DAILY 07/25/18 traZODone [Desyrel] 50 mg PO QHS 07/25/18 Surgical History: Surgical History (Last Reviewed 06/13/18 @ 15:04 by JADA Siddiqi) History of left-sided carotid endarterectomy Z98.890 Surgical History: - - R CEA, Vasectomy. Psychiatric History: Anxiety, Depression Smoking Status: Current every day smoker Alcohol: None Drugs: None - *Family History Maternal Family History: Family History (Last Reviewed 06/13/18 @ 15:04 by JADA Siddiqi) Father Diabetes Heart disease CVA (cerebral vascular accident) Mother Dementia History Items: - - Patient notes a paternal family history of hypertension and dementia. Paternal Family History: Family History (Last Reviewed 06/13/18 @ 15:04 by JADA Siddiqi) Father Diabetes Heart disease CVA (cerebral vascular accident) Mother Dementia History Items: - - Patient notes a paternal family history of diabetes, hypertension, heart disease. Review of Systems Constitutional: Reports: Malaise, Weakness, Fatigue. Denies: Chills, Fever, Weight Change Eyes: Denies: Blurred vision HEENT: Denies: Head Aches, Sinus Congestion, Sinus Drainage Cardiovascular: Denies: Chest Pain, Palpitations Respiratory: Reports: Shortness of Breath, Shortness of breath at rest, Shortness of breath upon exertion. Denies: Sputum production, Wheezing Gastrointestinal: Denies: Abdominal Pain, Nausea, Vomiting Genitourinary: Denies: Dysuria Musculoskeletal: Denies: Joint Pain, Joint Tenderness Skin: Denies: Rash, Wounds Neurological: Reports: Confusion. Denies: Focal weakness, Numbness, Tingling Psychiatric: Denies: Anxiety, Depression, Homicidal Ideations, Suicidal Ideations Hematologic/ Lymphatic: Denies: Easy Bruising, Easy Bleeding VTE Information - Inpt Only VTE Present on Admission: No VTE Mechan Device Prophylaxis: SCD's VTE Pharm Prophylaxis ordered?: No Reason prophylaxis not ordered:: Medical Contraindication - elevated INR - Physical Exam General: Cooperative, No apparent distress, Lethargic HEENT: Atraumatic, PERRLA, EOMI, Normocephalic Oral: Dry Mucosa Neck: Supple, No JVD, Negative Carotid Bruits Lungs: - - markedly decreased breath sounds in left mid and lower lung feldman. Few crackles auscultated in right lower lung feldman Cardiovascular: Regular rate, Regular Rhythm, Normal S1, Normal S2, No murmurs Abdomen: Bowel Sounds Present, Soft, Non Tender, Non-Distended, No Hepato- splenomegaly Extremities: No clubbing, No cyanosis, No edema, Capillary Refill Less than 3 Seconds Musculoskeletal: No Tenderness to Palpation of Joints or Extremities Lymphatic: No Cervical, Supraclavicular, or Inguinal Adenopathy Neurological: Cranial nerves II-XII grossly intact, Neuro grossly intact, Motor Exam 5/5 strength throughout Psych/Mental Status: Restless, -, Alert and oriented to time, place, person, mood and affect Vital Signs Temp Pulse Resp BP Pulse Ox 97.6 F L 94 15 86/63 L 92 07/25/18 21:32 07/25/18 21:32 07/25/18 21:32 07/25/18 21:32 07/25/18 21:32 Oxygen Flow Rate (L/min) 4 Oxygen Delivery Method Nasal Cannula Weight: 210 lb Body Mass Index (BMI) 26.9 Laboratory Tests Past 24 Hrs 07/25/18 07/25/18 07/25/18 17:30 17:30 17:30 WBC 9.8 RBC 4.07 L Hgb 10.3 L Hct 31.9 L MCV 78.4 L MCH 25.3 L MCHC 32.3 RDW 15.1 H RDW Differential 43.3 Plt Count 418 MPV 8.8 Immature Gran % (Auto) 0.500 Neut % (Auto) 88.9 H Lymph % (Auto) 7.4 L [place] % (Auto) 2.5 Eos % (Auto) 0.5 Baso % (Auto) 0.2 Absolute Neuts (auto) 8.7 H Absolute Lymphs (auto) 0.72 L Total Counted Not Reportable PT 88.0 H INR 11.1 H* Specimen Type Sample Site pH Bicarbonate Actual POC Total CO2 Base Excess O2 Saturation ABG pCO2 ABG pO2 Andrew Test O2 Delivery Device Liter Flow Blood Gas Notified Whom Blood Gas Notified Time Sodium 128 L Potassium 4.6 Chloride 90 L Carbon Dioxide 24.0 Anion Gap 14 BUN 31 H Creatinine 2.96 H Estim Creat Clear Calc 28.16 Est GFR (MDRD) Af Amer 27 L Est GFR (MDRD) Non-Af 23 L BUN/Creatinine Ratio 10.5 Glucose 132 H Lactic Acid Calcium 9.1 Troponin I < 0.015 07/25/18 07/25/18 17:30 17:39 WBC RBC Hgb Hct MCV MCH MCHC RDW RDW Differential Plt Count MPV Immature Gran % (Auto) Neut % (Auto) Lymph % (Auto) [place] % (Auto) Eos % (Auto) Baso % (Auto) Absolute Neuts (auto) Absolute Lymphs (auto) Total Counted PT INR Specimen Type ART Sample Site L Brachial pH 7.33 L Bicarbonate Actual 21.6 L POC Total CO2 23 Base Excess -4 L O2 Saturation 93 L ABG pCO2 41.0 ABG pO2 71 L Andrew Test NA O2 Delivery Device NRB Mask Liter Flow 15.0 Blood Gas Notified Whom ED MD Blood Gas Notified Time 1730 Sodium Potassium Chloride Carbon Dioxide Anion Gap BUN Creatinine Estim Creat Clear Calc Est GFR (MDRD) Af Amer Est GFR (MDRD) Non-Af BUN/Creatinine Ratio Glucose Lactic Acid 1.2 Calcium Troponin I Diagnostic Data Chest X-Ray 07/25/18 17:16 IMPRESSION: Left lower lobe infiltrate with pleural effusion follow-up recommended to assure resolution Platelike atelectasis in the right base Electronically Signed: Isai Pineda MD at 18:06 EST , Service support , Assessment/Plan All Active Problems (Last Reviewed 06/13/18 @ 15:04 by Scarlet Smith, BEHZAD-C) Hyponatremia (Acute) Insomnia (Acute) Dyspnea (Acute) Pneumonia (Acute) Anemia (Acute) Spasm (Acute) 67 y/o male iwth a history of recently diagnosed metastatic lung cancer presenting with a complaint of SOB 1. Acute hypoxic respiratory failure due to pleural effusion, likely malignant * Was saturating at 57% and his oncologist office and this came up to 95% in the ED when placed on 6 L of oxygen. * X-ray showed left-sided pleural effusion with possible infiltrate. * Had a bronchial stent placed in [facility] at the end of June for metastatic lung cancer. * Admit to PCU with telemetry. * Continue oxygen to maintain saturation above 92%. * Consult oncology and pulmonology. * Will likely need thoracentesis. INR is currently 11.1 so we will give vitamin K to reverse INR and hold Coumadin. * INR in the morning. If it has dropped, will refer to radiology for thoracentesis. * blood cultures obtained * started on IV vancomycin and zosyn in the ED * 2. Metastatic lung cancer: recently diagnosed. S/p stent placement to [facility]. Patient refused transfer to [facility] for this admission. 3. Left-sided pleural effusion, likely malignant: Management is under 1. 4. Hypontaremia: Sodium is 128. Likely due to dehydration and decreased intake. Will hydrate and monitor. 5. DANA: * Cr is 2.96 with baseline being less than 1. Likely prerenal due to decreased intake. * Will hydrate and monitor. * If creatinine does not improve, will consider nephrology consult. Kidney and bladder USG 6. Supratherapeutic INR: INR is 11.1. Will hold Coumadin and give p.o. vitamin K to reverse INR in preparation for possible thoracentesis. 7. Anemia: Hb is 10.3, is a microcytic, hypochromic anemia. Will monitor 8. Afib: On metoprolol. On Coumadin. Will hold on account of elevated INR. 9. Depression: On trazodone. Will continue. * 10. Hypothyroidism: On levothyroxine. 11. Hypertension: On lisinopril metoprolol DVT prophylaxis: SCDs CODE STATUS: Full code * Patient and counseled extensively about different types of CODE STATUS including full code, DNR CCA and DNR CCA. Patient elects to be full code. Total [id number] time 20 minutes. Code Visit Inpatient E&M: 25578 Init Hosp L3 Procedures: 60716 Advncd Care Plan 30 Min
[2018-07-25] MEDS: 0.9% Normal Saline 1,000 ML 125 ML IV (22:55)
[2018-07-25] MEDS: Gabapentin 300 MG Capsule PO (23:48)
[2018-07-25] MEDS: traZODone 50 MG Tablet PO (23:48)
[2018-07-25] MEDS: Mirtazapine 15 MG Tablet PO (23:48)
[2018-07-25] MEDS: Phytonadione (Vit K) 10 MG/ML Ampul 5 MG PO (23:54)
[2018-07-26] VITALS (16 sets, daily range): BP systolic 106–147; BP diastolic 55–86; PULSE 80–100; RESP 14–22; TEMP 36.7–37.2; O2SAT 94–100
[2018-07-26] MEDS: Acetylcysteine 800 MG/4 ML VIAL.NEB. INHALATION ×4 (00:04→21:33)
[2018-07-26] MEDS: Albuterol 2.5 MG/3 ML VIAL.NEB. INHALATION ×4 (00:04→21:33)
[2018-07-26 03:46] LABS: Mucous, Urine 0 SEEN /hpf (<or=2+); Red Blood Cells-Urine 0 SEEN /hpf (0-5); White Blood Cells 0 SEEN /hpf (0-5)
[2018-07-26 03:49] LABS: Color, Urine Yellow (Yellow); Glucose, Dipstick Normal (Normal); Ketone-Dipstick Negative (Negative); Leukocyte Esterase-Dipstick Negative /ul (Negative); Nitrite-Dipstick Negative (Negative); Occult Blood-Urine Negative /ul (Negative); Protein-Dipstick 15 mg/dl (Negative); Urine Bilirubin Dipstick Negative (Negative); Urine Clarity Clear (Clear); Urine Urobilinogen Normal (Normal)
[2018-07-26 03:56] LABS: Bacteria RARE /hpf (None Seen); Hyaline Cast 0-5 SEEN /lpf (0-5); Squamous Epithelial Cells - UA 0-5 SEEN /hpf (0-5)
[2018-07-26 05:41] LABS: Absolute Neutrophil Count 5.7 X10^3/uL (2.0-7.7); Basophil# 0.02 X10^3/uL; Basophil% 0.3 % (0-1); Eosinophils% 1.5 % (0-5); Hemoglobin 8.7 g/dl (13.0-16.5); Lymphocyte % 4.5 % (19-41); Mean Corp Hgb Conc 32.2 g/gl (32-36); Mean Corpuscular Hgb 25.4 pg (27.0-32.0); Mean Corpuscular Volume 78.9 fL (80-94); Mean Platelet Vol. 8.4 fl (6.2-12.0); Monocyte# 0.56 X10^3/uL; Monocyte% 8.4 % (0-10); Neutrophil # 5.69 X10^3/uL (2.7-7.7); Neutrophil % 84.9 % (47-70); Platelet Count 413 K/mm3 (150-450); RBC Distribution Width CV 14.9 % (11.6-14.6); RBC Distribution Width SD 41.2 fl (35.1-43.9); Red Blood Count 3.42 M/mm3 (4.6-6.2); White Blood Count 6.7 K/mm3 (4.4-11.0)
[2018-07-26 05:46] LABS: Differential Indicated SCAN CRITERIA MET; POSITIVE COUNT NO; POSITIVE DIFFERENTIAL YES; POSITIVE MORPHOLOGY NO
[2018-07-26 05:54] LABS: Anion Gap 10 (5-15); BUN 29 mg/dL (7-18); BUN/Creat Ratio 16.4 RATIO (10-20); Calcium,Total 7.9 mg/dL (8.5-10.1); Chloride 99 mmol/L (98-107); Creatinine, Serum 1.77 mg/dL (0.70-1.30); EST Glomerular Filtration Rate 41 mL/min (>60); Est Glom Filt Rate - Afr Amer 50 mL/min (>60); Estimated Creatinine Clearance 47.09 ml/min; Glucose 108 mg/dL (74-106); Potassium 4.4 mmol/L (3.5-5.1); Sodium Level 131 mmol/L (136-145)
[2018-07-26] MEDS: Levothyroxine 75 MCG Tablet PO (06:32)
[2018-07-26] MEDS: 0.9% Normal Saline 1,000 ML 125 ML IV ×3 (06:38→23:00)
[2018-07-26 06:50] LABS: International Normalized Ratio 4.2
--- NOTE | 2018-07-26 07:11 | PCM.CONS.GEN ---
Reason for Consult Date of Consultation: 07/26/18 Reason for Consultation: Respiratory failure/pleural effusion History of Present Illness: The patient is a 67-year-old male, with a history as outlined below, who presented to the emergency department on July 25 with worsening shortness of breath and lethargy. I previously saw the patient at the end of May 2018 when he was admitted to the hospital with shortness of breath and hemoptysis. The patient does have a history of head/neck cancer, for which he is status post chemoradiation. He also has a history of bilateral carotid artery stenosis and is status post left-sided carotid endarterectomy. He is on Plavix as an outpatient. The patient reports that his head and neck cancer has been in remission and he was last seen by his oncologist approximately 6 or 7 years ago at the [facility]. The patient does have an active smoking history of 1 pack/day x 50 years. He also drinks hard liquor daily. 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 During his last hospitalization, CT chest without contrast was obtained which revealed bilateral emphysematous changes and a masslike density within the lingula with extension into the hilum. I explained to the patient potential diagnostic workup modalities at that time. However, the patient indicated to me that he did not wish to pursue additional workup. The patient was then discharged from the hospital on June 01 and followed up in the pulmonary medicine clinic on June 13. He was subsequently referred to undergo a CT-guided lung biopsy. This procedure was initially scheduled for July 02. However, the patient was readmitted to the hospital on June 30. At that time, the patient and his asked that he be transferred to [facility] for additional workup. While awaiting transfer to the outside hospital, the patient decided that he was not willing to wait any longer and decided to sign out AGAINST MEDICAL ADVICE. On presentation to the emergency department on July 25, the patient was noted to be more short of breath. He had been seen by Dr. Pearce of oncology earlier in the day. He had reportedly been diagnosed recently with metastatic lung cancer and underwent bronchial stent placement at the [facility]. Per documentation reviewed from Dr. 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 The patient had laser ablation in balloon dilation along with stent placement of the left mainstem bronchus. On arrival to the ED, the patient was noted to be afebrile and hypoxic. Laboratory evaluation revealed no evidence of a leukocytosis. The patient did have a supratherapeutic INR of 11. Chemistry profile was notable for a sodium of 128, chloride of 90 and acute kidney injury with a creatinine of 2.96. Serum lactate was within normal limits. Troponin was negative. Plain film chest x-ray revealed a moderate sized left-sided pleural effusion, which was new since prior chest imaging completed June 30. The patient was subsequently admitted to the progressive care unit for ongoing management. Past Medical History Past Medical History (Chronic Problems): Chronic Problems (Last Reviewed 06/13/18 @ 15:04 by Scarlet Smith NP-C) Lung mass (Chronic) Hemoptysis, unspecified (Chronic) HTN (hypertension) (Chronic) HLD (hyperlipidemia) (Chronic) Hypothyroidism (Chronic) Chronic pain syndrome (Chronic) Carotid arterial disease (Chronic) TIA (transient ischemic attack) (Chronic) Oropharyngeal dysphagia (Chronic) Throat cancer (Chronic) Medical History: Medical History (Last Reviewed 06/13/18 @ 15:04 by Scarlet Smith NP-C) Pneumonia (Acute) J18.9 Hemoptysis, unspecified (Chronic) R04.2 HTN (hypertension) (Chronic) I10 HLD (hyperlipidemia) (Chronic) E78.5 Hypothyroidism (Chronic) E03.9 Chronic pain syndrome (Chronic) G89.4 Carotid arterial disease (Chronic) I77.9 TIA (transient ischemic attack) (Chronic) G45.9 Oropharyngeal dysphagia (Chronic) R13.12 Throat cancer (Chronic) C14.0 Anemia (Acute) D64.9 Spasm (Acute) R25.2 DVT (deep venous thrombosis) I82.409 Enlargement of lymph node R59.9 Head and neck cancer C76.0 Multiple lacunar infarcts I63.81 Depression F32.9 Esophageal stenosis K22.2 Sensorineural hearing loss H90.5 bilateral coronary artery stenosis Allergies bupropion Adverse Reaction (Intermediate, Verified 07/01/18 00:02) Other-dystonia Home Medications: Ambulatory Orders Medication Instructions Recorded Acetaminophen Liquid [Tylenol 20 ml PO DAILY 05/30/18 Liquid] Atorvastatin Calcium [Lipitor] 40 mg PO DAILY 05/30/18 Baclofen 5 mg PO BID 05/30/18 Carbamazepine [Carbamazepine ER] 100 mg PO QHS 05/30/18 Gabapentin 6 ml PO QHS 05/30/18 Levothyroxine [Synthroid] 75 mcg PO DAILY 05/30/18 Lisinopril [Zestril] 20 mg PO DAILY 05/30/18 Mirtazapine 15 mg PO QHS 05/30/18 Oxycodone [Oxyir] 20 - 40 mg PO TID 05/30/18 Sertraline HCl [Zoloft] 200 mg PO DAILY 05/30/18 Albuterol Aerosols [Ventolin 2.5 mg INHALATION Q4HWA.RT #90 06/01/18 Aerosols] vial.neb. Ketoconazole [Nizoral] 1 applic TOPICAL BID 06/30/18 Acetylcysteine 4 ml IH Q6H 07/25/18 Diazepam 2 mg PO TID PRN 07/25/18 Melatonin 9 mg PO QHS 07/25/18 Metoprolol Tartrate [Lopressor 50 mg PO BID 07/25/18 (Beta Darwin)] Warfarin [Coumadin ([facility]KC)] 2 mg PO DAILY 07/25/18 traZODone [Desyrel] 50 mg PO QHS 07/25/18 Surgical History: Surgical History (Last Reviewed 06/13/18 @ 15:04 by JADA Siddiqi) History of left-sided carotid endarterectomy Z98.890 Surgical History: - - R CEA, Vasectomy. Psychiatric History: Anxiety, Depression Smoking Status: Current every day smoker Alcohol: None Drugs: None - *Family History Maternal Family History: Family History (Last Reviewed 06/13/18 @ 15:04 by JADA Siddiqi) Father Diabetes Heart disease CVA (cerebral vascular accident) Mother Dementia History Items: - - Patient notes a paternal family history of hypertension and dementia. Paternal Family History: Family History (Last Reviewed 06/13/18 @ 15:04 by JADA Siddiqi) Father Diabetes Heart disease CVA (cerebral vascular accident) Mother Dementia History Items: - - Patient notes a paternal family history of diabetes, hypertension, heart disease. Review of Systems Constitutional: Reports: Weakness, Weight Change, Fatigue Eyes: Denies: Blurred vision, Double vision HEENT: Denies: Head Aches, Sinus Congestion, Sinus Drainage Cardiovascular: Denies: Chest Pain, Palpitations Respiratory: Reports: Shortness of Breath Gastrointestinal: Denies: Abdominal Pain, Nausea, Vomiting Genitourinary: Denies: Dysuria Musculoskeletal: Denies: Joint Pain, Joint Tenderness Skin: Denies: Rash, Wounds Neurological: Denies: Numbness, Tingling, Focal weakness Psychiatric: Denies: Anxiety, Depression, Homicidal Ideations, Suicidal Ideations Hematologic/ Lymphatic: Denies: Easy Bruising, Easy Bleeding Objective: The patient's most recent lab work, culture data and imaging studies have all been personally reviewed. - Physical Exam General: Alert, Cooperative, No apparent distress HEENT: Atraumatic, PERRLA, Normocephalic Oral: No Gingival or Mucosal Lesions/ Ulcerations Neck: Supple, No Nodes, Trachea Midline Lungs: Diminished, - - Dullness to percussion of left base Cardiovascular: Regular rate, Regular Rhythm, Normal S1, Normal S2, No murmurs Abdomen: Bowel Sounds Present, Soft, Non Tender Extremities: No clubbing, No cyanosis, No edema Skin: No breakdown Musculoskeletal: No Tenderness to Palpation of Joints or Extremities Neurological: Neuro grossly intact Psych/Mental Status: Flat Affect, Depressed Vital Signs Temp Pulse Resp BP Pulse Ox 36.9 C 88 16 147/81 H 96 07/26/18 04:28 07/26/18 04:28 07/26/18 04:28 07/26/18 04:28 07/26/18 04:28 Oxygen Flow Rate (L/min) 3 Oxygen Delivery Method Nasal Cannula Weight: 211 lb 10.3 oz Body Mass Index (BMI) 27.1 Intake and Output for Last 24 Hours 07/24/18 07/25/18 07/26/18 23:59 23:59 23:59 Intake Total 923 / 923 Output Total 350 / 350 Balance 573 / 573 Laboratory Tests Past 24 Hrs 07/25/18 07/25/18 07/25/18 17:30 17:30 17:30 WBC 9.8 RBC 4.07 L Hgb 10.3 L Hct 31.9 L MCV 78.4 L MCH 25.3 L MCHC 32.3 RDW 15.1 H RDW Differential 43.3 Plt Count 418 MPV 8.8 Immature Gran % (Auto) 0.500 Neut % (Auto) 88.9 H Lymph % (Auto) 7.4 L [place] % (Auto) 2.5 Eos % (Auto) 0.5 Baso % (Auto) 0.2 Absolute Neuts (auto) 8.7 H Absolute Lymphs (auto) 0.72 L Total Counted Not Reportable PT 88.0 H INR 11.1 H* Specimen Type Sample Site pH Bicarbonate Actual POC Total CO2 Base Excess O2 Saturation ABG pCO2 ABG pO2 Andrew Test O2 Delivery Device Liter Flow Blood Gas Notified Whom Blood Gas Notified Time Sodium 128 L Potassium 4.6 Chloride 90 L Carbon Dioxide 24.0 Anion Gap 14 BUN 31 H Creatinine 2.96 H Estim Creat Clear Calc 28.16 Est GFR (MDRD) Af Amer 27 L Est GFR (MDRD) Non-Af 23 L BUN/Creatinine Ratio 10.5 Glucose 132 H Lactic Acid Calcium 9.1 Troponin I < 0.015 Urine Color Urine Clarity Urine pH Ur Specific [place] Urine Protein Urine Glucose (UA) Urine Ketones Urine Occult Blood Urine Nitrite Urine Bilirubin Urine Urobilinogen Ur Leukocyte Esterase Urine RBC Urine WBC Ur Squamous Epith Cells Urine Bacteria Hyaline Casts Urine Mucus 07/25/18 07/25/18 07/26/18 17:30 17:39 03:38 WBC RBC Hgb Hct MCV MCH MCHC RDW RDW Differential Plt Count MPV Immature Gran % (Auto) Neut % (Auto) Lymph % (Auto) [place] % (Auto) Eos % (Auto) Baso % (Auto) Absolute Neuts (auto) Absolute Lymphs (auto) Total Counted PT INR Specimen Type ART Sample Site L Brachial pH 7.33 L Bicarbonate Actual 21.6 L POC Total CO2 23 Base Excess -4 L O2 Saturation 93 L ABG pCO2 41.0 ABG pO2 71 L Andrew Test NA O2 Delivery Device NRB Mask Liter Flow 15.0 Blood Gas Notified Whom ED MD Blood Gas Notified Time 1730 Sodium Potassium Chloride Carbon Dioxide Anion Gap BUN Creatinine Estim Creat Clear Calc Est GFR (MDRD) Af Amer Est GFR (MDRD) Non-Af BUN/Creatinine Ratio Glucose Lactic Acid 1.2 Calcium Troponin I Urine Color Yellow Urine Clarity Clear Urine pH 5.0 Ur Specific [place] 1.020 Urine Protein 15 H Urine Glucose (UA) Normal Urine Ketones Negative Urine Occult Blood Negative Urine Nitrite Negative Urine Bilirubin Negative Urine Urobilinogen Normal Ur Leukocyte Esterase Negative Urine RBC 0 SEEN Urine WBC 0 SEEN Ur Squamous Epith Cells 0-5 SEEN Urine Bacteria RARE Hyaline Casts 0-5 SEEN Urine Mucus 0 SEEN 07/26/18 07/26/18 07/26/18 05:20 05:20 05:20 WBC 6.7 RBC 3.42 L Hgb 8.7 L Hct 27.0 L MCV 78.9 L MCH 25.4 L MCHC 32.2 RDW 14.9 H RDW Differential 41.2 Plt Count 413 MPV 8.4 Immature Gran % (Auto) 0.400 Neut % (Auto) 84.9 H Lymph % (Auto) 4.5 L [place] % (Auto) 8.4 Eos % (Auto) 1.5 Baso % (Auto) 0.3 Absolute Neuts (auto) 5.7 Absolute Lymphs (auto) 0.30 L Total Counted Not Reportable PT 41.0 H INR 4.2 H* Specimen Type Sample Site pH Bicarbonate Actual POC Total CO2 Base Excess O2 Saturation ABG pCO2 ABG pO2 Andrew Test O2 Delivery Device Liter Flow Blood Gas Notified Whom Blood Gas Notified Time Sodium 131 L Potassium 4.4 Chloride 99 Carbon Dioxide 22.0 Anion Gap 10 BUN 29 H Creatinine 1.77 H Estim Creat Clear Calc 47.09 Est GFR (MDRD) Af Amer 50 L Est GFR (MDRD) Non-Af 41 L BUN/Creatinine Ratio 16.4 Glucose 108 H Lactic Acid Calcium 7.9 L Troponin I Urine Color Urine Clarity Urine pH Ur Specific [place] Urine Protein Urine Glucose (UA) Urine Ketones Urine Occult Blood Urine Nitrite Urine Bilirubin Urine Urobilinogen Ur Leukocyte Esterase Urine RBC Urine WBC Ur Squamous Epith Cells Urine Bacteria Hyaline Casts Urine Mucus Clinical Impression(s) from Imaging Studies Chest X-Ray 07/25/18 17:16 IMPRESSION: Left lower lobe infiltrate with pleural effusion follow-up recommended to assure resolution Platelike atelectasis in the right base Electronically Signed: Isai Pineda MD at 18:06 EST , Service support , Clinical Impression(s) from Imaging Studies Chest X-Ray 07/25/18 17:16 IMPRESSION: Left lower lobe infiltrate with pleural effusion follow-up recommended to assure resolution Platelike atelectasis in the right base Electronically Signed: Isai Pineda MD at 18:06 EST , Service support , Assessment/Plan All Active Problems (Last Reviewed 06/13/18 @ 15:04 by JADA Siddiqi) Hyponatremia (Acute) Insomnia (Acute) Dyspnea (Acute) Pneumonia (Acute) Anemia (Acute) Spasm (Acute) RECOMMENDATIONS: 1. Recommend proceeding with a diagnostic/therapeutic ultrasound-guided thoracentesis. 2. Will need to discuss with radiology as to the timing of this procedure, as the patient will likely require FFP, given his elevated INR. 3. Wean supplemental oxygen as tolerated. 4. Goals of care/long-term prognosis discussion with oncology. IMPRESSIONS: 1. Acute hypoxic respiratory failure/newly identified pleural effusion The patient presented to the hospital with a new supplemental oxygen requirement. He does have presumptive COPD, but is never undergone pulmonary function testing. In addition, he does have newly diagnosed metastatic non-small cell lung cancer and recently underwent endobronchial stenting at the [facility]. I strongly suspect that the patient likely had a supplemental oxygen requirement, even as an outpatient, that was never identified. He did follow up with our nurse practitioner, at which time, pulmonary function testing and a walking oximetry study was ordered. However, the patient never completed testing. In addition to the aforementioned, he now has a moderate sized left-sided pleural effusion, which is also likely contributing to his dyspnea and oxygen requirement. It is highly possible that this pleural effusion is the consequence of his newly diagnosed lung cancer. Therefore, I would recommend proceeding with an ultrasound-guided thoracentesis. Orders have been placed. 2. Newly diagnosed metastatic non-small cell lung cancer Oncology consultation is pending. Will proceed with diagnostic thoracentesis of left-sided pleural effusion and send pleural fluid for cytology. 3. Supratherapeutic INR The patient presented to the hospital with a supratherapeutic INR. He did receive vitamin K, but his INR remains greater than 4. If thoracentesis is planned for today, he would likely need to be given FFP to allow for this procedure to be completed. 4. Acute kidney injury Likely prerenal in etiology, as the patient's intake has been exceedingly poor. Anticipate improvement with volume expansion. There is no indication for renal replacement therapy at this time. 5. Anemia/chronic oropharyngeal dysphasia/chronic pain syndrome/hypothyroidism/history of head neck cancer/severe debility Complicates care, management, recovery and prognosis. Continue home medications as indicated. Recommend physical therapy evaluation today. The patient's is no longer able to care for the patient. He may require group home placement. This note was generated with [employer] dictation software. It may contain incorrect words, spelling, and punctuation that were not noted in checking the note before signing. Code Visit Inpatient E&M: 26229 Init Hosp L3
--- NOTE | 2018-07-26 07:20 | CON.PCM_ITS ---
Reason for Consult Date of Consultation: 07/26/18 Reason for Consultation: Respiratory failure/pleural effusion History of Present Illness: The patient is a 67-year-old male, with a history as outlined below, who presented to the emergency department on July 25 with worsening shortness of breath and lethargy. I previously saw the patient at the end of May 2018 when he was admitted to the hospital with shortness of breath and hemoptysis. The patient does have a history of head/neck cancer, for which he is status post chemoradiation. He also has a history of bilateral carotid artery stenosis and is status post left-sided carotid endarterectomy. He is on Plavix as an outpatient. The patient reports that his head and neck cancer has been in remission and he was last seen by his oncologist approximately 6 or 7 years ago at the [facility]. The patient does have an active smoking history of 1 pack/day x 50 years. He also drinks hard liquor daily. 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 During his last hospitalization, CT chest without contrast was obtained which revealed bilateral emphysematous changes and a masslike density within the lingula with extension into the hilum. I explained to the patient potential d iagnostic workup modalities at that time. However, the patient indicated to me that he did not wish to pursue additional workup. The patient was then discharged from the hospital on June 01 and followed up in the pulmonary medicine clinic on June 13. He was subsequently referred to undergo a CT- guided lung biopsy. This procedure was initially scheduled for July 02. However, the patient was readmitted to the hospital on June 30. At that time, the patient and his asked that he be transferred to [facility] for additional workup. While awaiting transfer to the outside hospital, the patient decided that he was not willing to wait any longer and decided to sign out AGAINST MEDICAL ADVICE. On presentation to the emergency department on July 25, the patient was no lluvia to be more short of breath. He had been seen by Dr. Pearce of oncology earlier in the day. He had reportedly been diagnosed recently with metastatic lung cancer and underwent bronchial stent placement at the [facility]. Per documentation reviewed from Dr. 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 The patient had laser ablation in balloon dilation along with stent placement of the left mainstem bronchus. On arrival to the ED, the patient was noted to be afebrile and hypoxic. Laboratory evaluation revealed no evidence of a leukocytosis. The patient did have a supratherapeutic INR of 11. Chemistry profile was notable for a sodium of 128, chloride of 90 and acute kidney injury with a creatinine of 2.96. Serum lactate was within normal limits. Troponin was negative. Plain film chest x- ray revealed a moderate sized left-sided pleural effusion, which was new since prior chest imaging completed June 30. The patient was subsequently admitted to the progressive care unit for ongoing management. Past Medical History Past Medical History (Chronic Problems): Chronic Problems (Last Reviewed 06/13/18 @ 15:04 by Scarlet Smith NP-C) Lung mass (Chronic) Hemoptysis, unspecified (Chronic) HTN (hypertension) (Chronic) HLD (hyperlipidemia) (Chronic) Hypothyroidism (Chronic) Chronic pain syndrome (Chronic) Carotid arterial disease (Chronic) TIA (transient ischemic attack) (Chronic) Oropharyngeal dysphagia (Chronic) Throat cancer (Chronic) Medical History: Medical History (Last Reviewed 06/13/18 @ 15:04 by Scarlet Smith NP-C) Pneumonia (Acute) J18.9 Hemoptysis, unspecified (Chronic) R04.2 HTN (hypertension) (Chronic) I10 HLD (hyperlipidemia) (Chronic) E78.5 Hypothyroidism (Chronic) E03.9 Chronic pain syndrome (Chronic) G89.4 Carotid arterial disease (Chronic) I77.9 TIA (transient ischemic attack) (Chronic) G45.9 Oropharyngeal dysphagia (Chronic) R13.12 Throat cancer (Chronic) C14.0 Anemia (Acute) D64.9 Spasm (Acute) R25.2 DVT (deep venous thrombosis) I82.409 Enlargement of lymph node R59.9 Head and neck cancer C76.0 Multiple lacunar infarcts I63.81 Depression F32.9 Esophageal stenosis K22.2 Sensorineural hearing loss H90.5 bilateral coronary artery stenosis Allergies bupropion Adverse Reaction (Intermediate, Verified 07/01/18 00:02) Other-dystonia Home Medications: Ambulatory Orders Medication Instructions Recorded Acetaminophen Liquid [Tylenol 20 ml PO DAILY 05/30/18 Liquid] Atorvastatin Calcium [Lipitor] 40 mg PO DAILY 05/30/18 Baclofen 5 mg PO BID 05/30/18 Carbamazepine [Carbamazepine ER] 100 mg PO QHS 05/30/18 Gabapentin 6 ml PO QHS 05/30/18 Levothyroxine [Synthroid] 75 mcg PO DAILY 05/30/18 Lisinopril [Zestril] 20 mg PO DAILY 05/30/18 Mirtazapine 15 mg PO QHS 05/30/18 Oxycodone [Oxyir] 20 - 40 mg PO TID 05/30/18 Sertraline HCl [Zoloft] 200 mg PO DAILY 05/30/18 Albuterol Aerosols [Ventolin 2.5 mg INHALATION Q4HWA.RT #90 06/01/18 Aerosols] vial.neb. Ketoconazole [Nizoral] 1 applic TOPICAL BID 06/30/18 Acetylcysteine 4 ml IH Q6H 07/25/18 Diazepam 2 mg PO TID PRN 07/25/18 Melatonin 9 mg PO QHS 07/25/18 Metoprolol Tartrate [Lopressor 50 mg PO BID 07/25/18 (Beta Darwin)] Warfarin [Coumadin (PBKC)] 2 mg PO DAILY 07/25/18 traZODone [Desyrel] 50 mg PO QHS 07/25/18 Surgical History: Surgical History (Last Reviewed 06/13/18 @ 15:04 by JADA Siddiqi) History of left-sided carotid endarterectomy Z98.890 Surgical History: - - R CEA, Vasectomy. Psychiatric History: Anxiety, Depression Smoking Status: Current every day smoker Alcohol: None Drugs: None - *Family History Maternal Family History: Family History (Last Reviewed 06/13/18 @ 15:04 by JADA Siddiqi) Father Diabetes Heart disease CVA (cerebral vascular accident) Mother Dementia History Items: - - Patient notes a paternal family history of hypertension and dementia. Paternal Family History: Family History (Last Reviewed 06/13/18 @ 15:04 by JADA Siddiqi) Father Diabetes Heart disease CVA (cerebral vascular accident) Mother Dementia History Items: - - Patient notes a paternal family history of diabetes, hypertension, heart disease. Review of Systems Constitutional: Reports: Weakness, Weight Change, Fatigue Eyes: Denies: Blurred vision, Double vision HEENT: Denies: Head Aches, Sinus Congestion, Sinus Drainage Cardiovascular: Denies: Chest Pain, Palpitations Respiratory: Reports: Shortness of Breath Gastrointestinal: Denies: Abdominal Pain, Nausea, Vomiting Genitourinary: Denies: Dysuria Musculoskeletal: Denies: Joint Pain, Joint Tenderness Skin: Denies: Rash, Wounds Neurological: Denies: Numbness, Tingling, Focal weakness Psychiatric: Denies: Anxiety, Depression, Homicidal Ideations, Suicidal Ideations Hematologic/ Lymphatic: Denies: Easy Bruising, Easy Bleeding Objective: The patient's most recent lab work, culture data and imaging studies have all been personally reviewed. - Physical Exam General: Alert, Cooperative, No apparent distress HEENT: Atraumatic, PERRLA, Normocephalic Oral: No Gingival or Mucosal Lesions/ Ulcerations Neck: Supple, No Nodes, Trachea Midline Lungs: Diminished, - - Dullness to percussion of left base Cardiovascular: Regular rate, Regular Rhythm, Normal S1, Normal S2, No murmurs Abdomen: Bowel Sounds Present, Soft, Non Tender Extremities: No clubbing, No cyanosis, No edema Skin: No breakdown Musculoskeletal: No Tenderness to Palpation of Joints or Extremities Neurological: Neuro grossly intact Psych/Mental Status: Flat Affect, Depressed Vital Signs Temp Pulse Resp BP Pulse Ox 36.9 C 88 16 147/81 H 96 07/26/18 04:28 07/26/18 04:28 07/26/18 04:28 07/26/18 04:28 07/26/18 04:28 Oxygen Flow Rate (L/min) 3 Oxygen Delivery Method Nasal Cannula Weight: 211 lb 10.3 oz Body Mass Index (BMI) 27.1 Intake and Output for Last 24 Hours 07/24/18 07/25/18 07/26/18 23:59 23:59 23:59 Intake Total 923 / 923 Output Total 350 / 350 Balance 573 / 573 Laboratory Tests Past 24 Hrs 07/25/18 07/25/18 07/25/18 17:30 17:30 17:30 WBC 9.8 RBC 4.07 L Hgb 10.3 L Hct 31.9 L MCV 78.4 L MCH 25.3 L MCHC 32.3 RDW 15.1 H RDW Differential 43.3 Plt Count 418 MPV 8.8 Immature Gran % (Auto) 0.500 Neut % (Auto) 88.9 H Lymph % (Auto) 7.4 L Forest % (Auto) 2.5 Eos % (Auto) 0.5 Baso % (Auto) 0.2 Absolute Neuts (auto) 8.7 H Absolute Lymphs (auto) 0.72 L Total Counted Not Reportable PT 88.0 H INR 11.1 H* Specimen Type Sample Site pH Bicarbonate Actual POC Total CO2 Base Excess O2 Saturation ABG pCO2 ABG pO2 Andrew Test O2 Delivery Device Liter Flow Blood Gas Notified Whom Blood Gas Notified Time Sodium 128 L Potassium 4.6 Chloride 90 L Carbon Dioxide 24.0 Anion Gap 14 BUN 31 H Creatinine 2.96 H Estim Creat Clear Calc 28.16 Est GFR (MDRD) Af Amer 27 L Est GFR (MDRD) Non-Af 23 L BUN/Creatinine Ratio 10.5 Glucose 132 H Lactic Acid Calcium 9.1 Troponin I < 0.015 Urine Color Urine Clarity Urine pH Ur Specific [place] Urine Protein Urine Glucose (UA) Urine Ketones Urine Occult Blood Urine Nitrite Urine Bilirubin Urine Urobilinogen Ur Leukocyte Esterase Urine RBC Urine WBC Ur Squamous Epith Cells Urine Bacteria Hyaline Casts Urine Mucus 07/25/18 07/25/18 07/26/18 17:30 17:39 03:38 WBC RBC Hgb Hct MCV MCH MCHC RDW RDW Differential Plt Count MPV Immature Gran % (Auto) Neut % (Auto) Lymph % (Auto) Forest % (Auto) Eos % (Auto) Baso % (Auto) Absolute Neuts (auto) Absolute Lymphs (auto) Total Counted PT INR Specimen Type ART Sample Site L Brachial pH 7.33 L Bicarbonate Actual 21.6 L POC Total CO2 23 Base Excess -4 L O2 Saturation 93 L ABG pCO2 41.0 ABG pO2 71 L Andrew Test NA O2 Delivery Device NRB Mask Liter Flow 15.0 Blood Gas Notified Whom ED Blood Gas Notified Time 1730 Sodium Potassium Chloride Carbon Dioxide Anion Gap BUN Creatinine Estim Creat Clear Calc Est GFR (MDRD) Af Amer Est GFR (MDRD) Non-Af BUN/Creatinine Ratio Glucose Lactic Acid 1.2 Calcium Troponin I Urine Color Yellow Urine Clarity Clear Urine pH 5.0 Ur Specific [place] 1.020 Urine Protein 15 H Urine Glucose (UA) Normal Urine Ketones Negative Urine Occult Blood Negative Urine Nitrite Negative Urine Bilirubin Negative Urine Urobilinogen Normal Ur Leukocyte Esterase Negative Urine RBC 0 SEEN Urine WBC 0 SEEN Ur Squamous Epith Cells 0-5 SEEN Urine Bacteria RARE Hyaline Casts 0-5 SEEN Urine Mucus 0 SEEN 07/26/18 07/26/18 07/26/18 05:20 05:20 05:20 WBC 6.7 RBC 3.42 L Hgb 8.7 L Hct 27.0 L MCV 78.9 L MCH 25.4 L MCHC 32.2 RDW 14.9 H RDW Differential 41.2 Plt Count 413 MPV 8.4 Immature Gran % (Auto) 0.400 Neut % (Auto) 84.9 H Lymph % (Auto) 4.5 L Forest % (Auto) 8.4 Eos % (Auto) 1.5 Baso % (Auto) 0.3 Absolute Neuts (auto) 5.7 Absolute Lymphs (auto) 0.30 L Total Counted Not Reportable PT 41.0 H INR 4.2 H* Specimen Type Sample Site pH Bicarbonate Actual POC Total CO2 Base Excess O2 Saturation ABG pCO2 ABG pO2 Andrew Test O2 Delivery Device Liter Flow Blood Gas Notified Whom Blood Gas Notified Time Sodium 131 L Potassium 4.4 Chloride 99 Carbon Dioxide 22.0 Anion Gap 10 BUN 29 H Creatinine 1.77 H Estim Creat Clear Calc 47.09 Est GFR (MDRD) Af Amer 50 L Est GFR (MDRD) Non-Af 41 L BUN/Creatinine Ratio 16.4 Glucose 108 H Lactic Acid Calcium 7.9 L Troponin I Urine Color Urine Clarity Urine pH Ur Specific [place] Urine Protein Urine Glucose (UA) Urine Ketones Urine Occult Blood Urine Nitrite Urine Bilirubin Urine Urobilinogen Ur Leukocyte Esterase Urine RBC Urine WBC Ur Squamous Epith Cells Urine Bacteria Hyaline Casts Urine Mucus Clinical Impression(s) from Imaging Studies Chest X-Ray 07/25/18 17:16 IMPRESSION: Left lower lobe infiltrate with pleural effusion follow-up recommended to assure resolution Platelike atelectasis in the right base Electronically Signed: Isai iPneda MD at 18:06 EST , Service support , Clinical Impression(s) from Imaging Studies Chest X-Ray 07/25/18 17:16 IMPRESSION: Left lower lobe infiltrate with pleural effusion follow-up recommended to assure resolution Platelike atelectasis in the right base Electronically Signed: Isai Pineda MD at 18:06 EST , Service support , Assessment/Plan All Active Problems (Last Reviewed 06/13/18 @ 15:04 by JADA Siddiqi) Hyponatremia (Acute) Insomnia (Acute) Dyspnea (Acute) Pneumonia (Acute) Anemia (Acute) Spasm (Acute) RECOMMENDATIONS: 1. Recommend proceeding with a diagnostic/therapeutic ultrasound-guided thoracentesis. 2. Will need to discuss with radiology as to the timing of this procedure, as the patient will likely require FFP, given his elevated INR. 3. Wean supplemental oxygen as tolerated. 4. Goals of care/long-term prognosis discussion with oncology. IMPRESSIONS: 1. Acute hypoxic respiratory failure/newly identified pleural effusion The patient presented to the hospital with a new supplemental oxygen requirement. He does have presumptive COPD, but is never undergone pulmonary function testing. In addition, he does have newly diagnosed metastatic non- small cell lung cancer and recently underwent endobronchial stenting at the [facility]. I strongly suspect that the patient likely had a supplemental oxygen requirement, even as an outpatient, that was never identified. He did follow up with our nurse practitioner, at which time, pulmonary function testing and a walking oximetry study was ordered. However, the patient never completed testing. In addition to the aforementioned, he now has a moderate sized left- sided pleural effusion, which is also likely contributing to his dyspnea and oxygen requirement. It is highly possible that this pleural effusion is the consequence of his newly diagnosed lung cancer. Therefore, I would recommend proceeding with an ultrasound-guided thoracentesis. Orders have been placed. 2. Newly diagnosed metastatic non-small cell lung cancer Oncology consultation is pending. Will proceed with diagnostic thoracentesis of left-sided pleural effusion and send pleural fluid for cytology. 3. Supratherapeutic INR The patient presented to the hospital with a supratherapeutic INR. He did receive vitamin K, but his INR remains greater than 4. If thoracentesis is planned for today, he would likely need to be given FFP to allow for this procedure to be completed. 4. Acute kidney injury Likely prerenal in etiology, as the patient's intake has been exceedingly poor. Anticipate improvement with volume expansion. There is no indication for renal replacement therapy at this time. 5. Anemia/chronic oropharyngeal dysphasia/chronic pain syndrome/hypothyroidism/history of head neck cancer/severe debility Complicates care, management, recovery and prognosis. Continue home medications as indicated. Recommend physical therapy evaluation today. The patient's is no longer able to care for the patient. He may require [place] [facility]. This note was generated with [email or web address] dictation software. It may contain incorrect words, spelling, and punctuation that were not noted in checking the note be fore signing. Code Visit Inpatient E&M: 94796 Init Hosp L3
[2018-07-26 11:32] LABS: Thyroid Stim Hormone (TSH) 0.88 uIU/mL (0.358-3.74)
[2018-07-26 11:50] LABS: Allen Test POS; Base Excess -5 mmol/L (-2 to +2); Bicarbonate 20.5 mmol/L (22-26); Blood Gas Specimen Type ART; O2 Delivery Device Nasal Can; PO2 67 mmHG (75-100); SITE L Radial; SO2 92 % (95-99); Time Given 1145; Total Carbon Dioxide 22 mmol/L; pCO2 37.8 mmHg (35-45); pH 7.34 (7.35-7.45)
--- NOTE | 2018-07-26 12:55 | US_ITS ---
STUDY: SUPERFICIAL ULTRASOUND - PLEURAL SPACES. REASON FOR EXAM: Male, 67 years old. Possible pleural effusions. TECHNIQUE: A superficial ultrasound was performed with real-time and static govea-scale imaging. COMPARISON: None. FINDINGS: Small left pleural effusion. Minimal fluid seen in the right pleural space. US/Chest IMPRESSION: Small left pleural effusion. Electronically Signed: Josh Rush MD at 9:37 EST Tel [phone], Service support ,
[2018-07-26 13:40] LABS: ALB/GLOB Ratio 0.7 RATIO (0.9-2.4); Globulin 3.4 g/dL (2.2-4.2); LDH 191 U/L (87-241); Protein, Total 5.7 g/dL (6.4-8.2)
[2018-07-26] MEDS: oxyCODONE 5 MG Tablet PO (14:50)
--- NOTE | 2018-07-26 14:56 | PN_ITS ---
<Ketty Wallace - Last Filed: 07/26/18 14:56> Subjective: Patient seen and examined. Lethargic on assessment. at bedside. States patient has been falling frequently at home and wishes for patient to go to SNF at discharge for therapy. - Physical Exam General: Lethargic HEENT: Atraumatic, PERRLA, EOMI, Normocephalic Oral: Dry Mucosa Neck: Supple, No JVD, Negative Carotid Bruits Lungs: Clear to auscultation, Diminished Cardiovascular: Regular rate, Regular Rhythm, Normal S1, Normal S2, No murmurs Abdomen: Bowel Sounds Present, Soft, Non Tender, Non-Distended Extremities: No clubbing, No cyanosis, No edema, Capillary Refill Less than 3 Seconds Skin: No rashes, No breakdown Musculoskeletal: No Tenderness to Palpation of Joints or Extremities Neurological: Cranial nerves II-XII grossly intact, Neuro grossly intact Psych/Mental Status: Flat Affect Vital Signs Temp Pulse Resp BP Pulse Ox 98.7 F 96 18 106/55 L 95 07/26/18 10:15 07/26/18 13:24 07/26/18 13:24 07/26/18 10:15 07/26/18 10:15 Oxygen Flow Rate (L/min) 3 Oxygen Delivery Method Nasal Cannula Weight: 211 lb 10.3 oz Body Mass Index (BMI) 27.1 Intake and Output for Last 24 Hours 07/24/18 07/25/18 07/26/18 23:59 23:59 23:59 Intake Total 1123 / 1123 Output Total 925 / 925 Balance 198 / 198 Laboratory Tests Past 24 Hrs 07/25/18 07/25/18 07/25/18 17:30 17:30 17:30 WBC 9.8 RBC 4.07 L Hgb 10.3 L Hct 31.9 L MCV 78.4 L MCH 25.3 L MCHC 32.3 RDW 15.1 H RDW Differential 43.3 Plt Count 418 MPV 8.8 Immature Gran % (Auto) 0.500 Neut % (Auto) 88.9 H Lymph % (Auto) 7.4 L [place] % (Auto) 2.5 Eos % (Auto) 0.5 Baso % (Auto) 0.2 Absolute Neuts (auto) 8.7 H Absolute Lymphs (auto) 0.72 L Total Counted Not Reportable PT 88.0 H INR 11.1 H* Specimen Type Sample Site pH Bicarbonate Actual POC Total CO2 Base Excess O2 Saturation ABG pCO2 ABG pO2 Andrew Test O2 Delivery Device Liter Flow Blood Gas Notified Whom Blood Gas Notified Time Sodium 128 L Potassium 4.6 Chloride 90 L Carbon Dioxide 24.0 Anion Gap 14 BUN 31 H Creatinine 2.96 H Estim Creat Clear Calc 28.16 Est GFR (MDRD) Af Amer 27 L Est GFR (MDRD) Non-Af 23 L BUN/Creatinine Ratio 10.5 Glucose 132 H Lactic Acid Calcium 9.1 Lactate Dehydrogenase Troponin I < 0.015 Total Protein Globulin Albumin/Globulin Ratio TSH Urine Color Urine Clarity Urine pH Ur Specific [place] Urine Protein Urine Glucose (UA) Urine Ketones Urine Occult Blood Urine Nitrite Urine Bilirubin Urine Urobilinogen Ur Leukocyte Esterase Urine RBC Urine WBC Ur Squamous Epith Cells Urine Bacteria Hyaline Casts Urine Mucus 07/25/18 07/25/18 07/26/18 17:30 17:39 03:38 WBC RBC Hgb Hct MCV MCH MCHC RDW RDW Differential Plt Count MPV Immature Gran % (Auto) Neut % (Auto) Lymph % (Auto) [place] % (Auto) Eos % (Auto) Baso % (Auto) Absolute Neuts (auto) Absolute Lymphs (auto) Total Counted PT INR Specimen Type ART Sample Site L Brachial pH 7.33 L Bicarbonate Actual 21.6 L POC Total CO2 23 Base Excess -4 L O2 Saturation 93 L ABG pCO2 41.0 ABG pO2 71 L Andrew Test NA O2 Delivery Device NRB Mask Liter Flow 15.0 Blood Gas Notified Whom ED Blood Gas Notified Time 1730 Sodium Potassium Chloride Carbon Dioxide Anion Gap BUN Creatinine Estim Creat Clear Calc Est GFR (MDRD) Af Amer Est GFR (MDRD) Non-Af BUN/Creatinine Ratio Glucose Lactic Acid 1.2 Calcium Lactate Dehydrogenase Troponin I Total Protein Globulin Albumin/Globulin Ratio TSH Urine Color Yellow Urine Clarity Clear Urine pH 5.0 Ur Specific [place] 1.020 Urine Protein 15 H Urine Glucose (UA) Normal Urine Ketones Negative Urine Occult Blood Negative Urine Nitrite Negative Urine Bilirubin Negative Urine Urobilinogen Normal Ur Leukocyte Esterase Negative Urine RBC 0 SEEN Urine WBC 0 SEEN Ur Squamous Epith Cells 0-5 SEEN Urine Bacteria RARE Hyaline Casts 0-5 SEEN Urine Mucus 0 SEEN 12/20/18 12/20/18 12/20/18 05:20 05:20 05:20 WBC 6.7 RBC 3.42 L Hgb 8.7 L Hct 27.0 L MCV 78.9 L MCH 25.4 L MCHC 32.2 RDW 14.9 H RDW Differential 41.2 Plt Count 413 MPV 8.4 Immature Gran % (Auto) 0.400 Neut % (Auto) 84.9 H Lymph % (Auto) 4.5 L [place] % (Auto) 8.4 Eos % (Auto) 1.5 Baso % (Auto) 0.3 Absolute Neuts (auto) 5.7 Absolute Lymphs (auto) 0.30 L Total Counted Not Reportable PT 41.0 H INR 4.2 H* Specimen Type Sample Site pH Bicarbonate Actual POC Total CO2 Base Excess O2 Saturation ABG pCO2 ABG pO2 Andrew Test O2 Delivery Device Liter Flow Blood Gas Notified Whom Blood Gas Notified Time Sodium 131 L Potassium 4.4 Chloride 99 Carbon Dioxide 22.0 Anion Gap 10 BUN 29 H Creatinine 1.77 H Estim Creat Clear Calc 47.09 Est GFR (MDRD) Af Amer 50 L Est GFR (MDRD) Non-Af 41 L BUN/Creatinine Ratio 16.4 Glucose 108 H Lactic Acid Calcium 7.9 L Lactate Dehydrogenase Troponin I Total Protein Globulin Albumin/Globulin Ratio TSH Urine Color Urine Clarity Urine pH Ur Specific [place] Urine Protein Urine Glucose (UA) Urine Ketones Urine Occult Blood Urine Nitrite Urine Bilirubin Urine Urobilinogen Ur Leukocyte Esterase Urine RBC Urine WBC Ur Squamous Epith Cells Urine Bacteria Hyaline Casts Urine Mucus 07/26/18 07/26/18 07/26/18 05:20 05:20 11:48 WBC RBC Hgb Hct MCV MCH MCHC RDW RDW Differential Plt Count MPV Immature Gran % (Auto) Neut % (Auto) Lymph % (Auto) [place] % (Auto) Eos % (Auto) Baso % (Auto) Absolute Neuts (auto) Absolute Lymphs (auto) Total Counted PT INR Specimen Type ART Sample Site L Radial pH 7.34 L Bicarbonate Actual 20.5 L POC Total CO2 22 Base Excess -5 L O2 Saturation 92 L ABG pCO2 37.8 ABG pO2 67 L Andrew Test POS O2 Delivery Device Nasal Can Liter Flow 3.0 Blood Gas Notified Whom ICU MD Blood Gas Notified Time 1145 Sodium Potassium Chloride Carbon Dioxide Anion Gap BUN Creatinine Estim Creat Clear Calc Est GFR (MDRD) Af Amer Est GFR (MDRD) Non-Af BUN/Creatinine Ratio Glucose Lactic Acid Calcium Lactate Dehydrogenase 191 Troponin I Total Protein 5.7 L Globulin 3.4 Albumin/Globulin Ratio 0.7 L TSH 0.88 Urine Color Urine Clarity Urine pH Ur Specific [place] Urine Protein Urine Glucose (UA) Urine Ketones Urine Occult Blood Urine Nitrite Urine Bilirubin Urine Urobilinogen Ur Leukocyte Esterase Urine RBC Urine WBC Ur Squamous Epith Cells Urine Bacteria Hyaline Casts Urine Mucus Medical Necessity - Tobacco Use Smoking Status: Current every day smoker Assessment/Plan All Active Problems (Last Reviewed 06/13/18 @ 15:04 by Scarlet Smith NP-Soren) Hyponatremia (Acute) Insomnia (Acute) Dyspnea (Acute) Pneumonia (Acute) Anemia (Acute) Spasm (Acute) 1. Acute hypoxic respiratory failure secondary to left pleural effusion suspected as a result of recently diagnosed metastatic non-small cell lung cancer-Pulmonary consulted. Following with [facility] as outpatient, consulted. Has not yet undergone chemotherapy or radiation. This was being discussed at initial appointment with Dr. Pearce. Patient to undergo ultrasound-guided t horacentesis for both diagnostic and therapeutic purposes. Anticipate this will take place tomorrow given elevated INR. May require FFP. Continue supplement oxygen to maintain O2 sat above 90%. Patient can resume outpatient follow-up with Dr. Underwood. Anticipate patient will require supplemental oxygen at discharge. Walking pulse ox prior to discharge. wishes to discuss prognosis further with oncology. 2. Recent diagnosis metastatic non-small cell lung cancer-oncology following as noted above. 3. Supratherapeutic INR-vitamin K 5 mg x1 on admission. Trend INR. 4. Acute kidney injury-improved with IV fluids. Trend BMP. Suspect secondary to poor oral intake. 5. Mild hyponatremia, suspect secondary to poor oral intake/hypovolemia- improved with IV fluids. 6. Hypertension-continue metoprolol. Hold lisinopril given acute kidney injury. 7. Hypothyroidism-continue Synthroid regimen. 8. Depression-continue trazodone, sertraline regimen. 9. Hyperlipidemia-continue statin. 10. Chronic microcytic anemia- stable. 11. Severe debility with recurrent falls at home- PT/OT. Anticipate need for SNF placement. DVT prophylaxis-Coumadin on hold given elevated INR. This patient was seen by JADA Antoine under the supervision of Dr. Andre. <Robert Andre - Last Filed: 07/26/18 16:50> Subjective: Patient still short of breath. Very weak and lethargic. Severe protein calorie malnutrition. Has weak cough. History of floor of mouth cancer and then non- small cell lung cancer, metastatic and had endobronchial stenting in right main bronchus in [facility]. History taken from the at bedside. - Physical Exam General: Lethargic, - - Diffuse muscle atrophy of extremities, cheeks and chest wall HEENT: Atraumatic, PERRLA, EOMI, Normocephalic Neck: Supple, No JVD, Negative Carotid Bruits Lungs: Diminished - Air entry diffusely diminished, Rhonchi Cardiovascular: Regular rate, Regular Rhythm, Normal S1, Normal S2, No murmurs Abdomen: Bowel Sounds Present, Soft, Non Tender Extremities: No edema, Capillary Refill Less than 3 Seconds Skin: No rashes, No breakdown Musculoskeletal: No Tenderness to Palpation of Joints or Extremities, Arthritic Changes, Muscle Wasting Vital Signs Temp Pulse Resp BP Pulse Ox 98.1 F 97 16 113/65 94 07/26/18 16:14 07/26/18 16:14 07/26/18 16:14 07/26/18 16:14 07/26/18 16:14 Oxygen Flow Rate (L/min) 3 Oxygen Delivery Method Nasal Cannula Weight: 211 lb 10.3 oz Body Mass Index (BMI) 27.1 Intake and Output for Last 24 Hours 07/24/18 07/25/18 07/26/18 23:59 23:59 23:59 Intake Total 2182 / 2182 Output Total 925 / 925 Balance 1257 / 1257 Laboratory Tests Past 24 Hrs 07/25/18 07/25/18 07/25/18 17:30 17:30 17:30 WBC 9.8 RBC 4.07 L Hgb 10.3 L Hct 31.9 L MCV 78.4 L MCH 25.3 L MCHC 32.3 RDW 15.1 H RDW Differential 43.3 Plt Count 418 MPV 8.8 Immature Gran % (Auto) 0.500 Neut % (Auto) 88.9 H Lymph % (Auto) 7.4 L [place] % (Auto) 2.5 Eos % (Auto) 0.5 Baso % (Auto) 0.2 Absolute Neuts (auto) 8.7 H Absolute Lymphs (auto) 0.72 L Total Counted Not Reportable PT 88.0 H INR 11.1 H* Specimen Type Sample Site pH Bicarbonate Actual POC Total CO2 Base Excess O2 Saturation ABG pCO2 ABG pO2 Andrew Test O2 Delivery Device Liter Flow Blood Gas Notified Whom Blood Gas Notified Time Sodium 128 L Potassium 4.6 Chloride 90 L Carbon Dioxide 24.0 Anion Gap 14 BUN 31 H Creatinine 2.96 H Estim Creat Clear Calc 28.16 Est GFR (MDRD) Af Amer 27 L Est GFR (MDRD) Non-Af 23 L BUN/Creatinine Ratio 10.5 Glucose 132 H Lactic Acid Calcium 9.1 Lactate Dehydrogenase Troponin I < 0.015 Total Protein Globulin Albumin/Globulin Ratio TSH Urine Color Urine Clarity Urine pH Ur Specific [place] Urine Protein Urine Glucose (UA) Urine Ketones Urine Occult Blood Urine Nitrite Urine Bilirubin Urine Urobilinogen Ur Leukocyte Esterase Urine RBC Urine WBC Ur Squamous Epith Cells Urine Bacteria Hyaline Casts Urine Mucus 07/25/18 07/25/18 07/26/18 17:30 17:39 03:38 WBC RBC Hgb Hct MCV MCH MCHC RDW RDW Differential Plt Count MPV Immature Gran % (Auto) Neut % (Auto) Lymph % (Auto) [place] % (Auto) Eos % (Auto) Baso % (Auto) Absolute Neuts (auto) Absolute Lymphs (auto) Total Counted PT INR Specimen Type ART Sample Site L Brachial pH 7.33 L Bicarbonate Actual 21.6 L POC Total CO2 23 Base Excess -4 L O2 Saturation 93 L ABG pCO2 41.0 ABG pO2 71 L Andrew Test NA O2 Delivery Device NRB Mask Liter Flow 15.0 Blood Gas Notified Whom ED Blood Gas Notified Time 1730 Sodium Potassium Chloride Carbon Dioxide Anion Gap BUN Creatinine Estim Creat Clear Calc Est GFR (MDRD) Af Amer Est GFR (MDRD) Non-Af BUN/Creatinine Ratio Glucose Lactic Acid 1.2 Calcium Lactate Dehydrogenase Troponin I Total Protein Globulin Albumin/Globulin Ratio TSH Urine Color Yellow Urine Clarity Clear Urine pH 5.0 Ur Specific [place] 1.020 Urine Protein 15 H Urine Glucose (UA) Normal Urine Ketones Negative Urine Occult Blood Negative Urine Nitrite Negative Urine Bilirubin Negative Urine Urobilinogen Normal Ur Leukocyte Esterase Negative Urine RBC 0 SEEN Urine WBC 0 SEEN Ur Squamous Epith Cells 0-5 SEEN Urine Bacteria RARE Hyaline Casts 0-5 SEEN Urine Mucus 0 SEEN 07/26/18 07/26/18 07/26/18 05:20 05:20 05:20 WBC 6.7 RBC 3.42 L Hgb 8.7 L Hct 27.0 L MCV 78.9 L MCH 25.4 L MCHC 32.2 RDW 14.9 H RDW Differential 41.2 Plt Count 413 MPV 8.4 Immature Gran % (Auto) 0.400 Neut % (Auto) 84.9 H Lymph % (Auto) 4.5 L [place] % (Auto) 8.4 Eos % (Auto) 1.5 Baso % (Auto) 0.3 Absolute Neuts (auto) 5.7 Absolute Lymphs (auto) 0.30 L Total Counted Not Reportable PT 41.0 H INR 4.2 H* Specimen Type Sample Site pH Bicarbonate Actual POC Total CO2 Base Excess O2 Saturation ABG pCO2 ABG pO2 Andrew Test O2 Delivery Device Liter Flow Blood Gas Notified Whom Blood Gas Notified Time Sodium 131 L Potassium 4.4 Chloride 99 Carbon Dioxide 22.0 Anion Gap 10 BUN 29 H Creatinine 1.77 H Estim Creat Clear Calc 47.09 Est GFR (MDRD) Af Amer 50 L Est GFR (MDRD) Non-Af 41 L BUN/Creatinine Ratio 16.4 Glucose 108 H Lactic Acid Calcium 7.9 L Lactate Dehydrogenase Troponin I Total Protein Globulin Albumin/Globulin Ratio TSH Urine Color Urine Clarity Urine pH Ur Specific [place] Urine Protein Urine Glucose (UA) Urine Ketones Urine Occult Blood Urine Nitrite Urine Bilirubin Urine Urobilinogen Ur Leukocyte Esterase Urine RBC Urine WBC Ur Squamous Epith Cells Urine Bacteria Hyaline Casts Urine Mucus 07/26/18 07/26/18 07/26/18 05:20 05:20 11:48 WBC RBC Hgb Hct MCV MCH MCHC RDW RDW Differential Plt Count MPV Immature Gran % (Auto) Neut % (Auto) Lymph % (Auto) [place] % (Auto) Eos % (Auto) Baso % (Auto) Absolute Neuts (auto) Absolute Lymphs (auto) Total Counted PT INR Specimen Type ART Sample Site L Radial pH 7.34 L Bicarbonate Actual 20.5 L POC Total CO2 22 Base Excess -5 L O2 Saturation 92 L ABG pCO2 37.8 ABG pO2 67 L Andrew Test POS O2 Delivery Device Nasal Can Liter Flow 3.0 Blood Gas Notified Whom ICU Blood Gas Notified Time 1145 Sodium Potassium Chloride Carbon Dioxide Anion Gap BUN Creatinine Estim Creat Clear Calc Est GFR (MDRD) Af Amer Est GFR (MDRD) Non-Af BUN/Creatinine Ratio Glucose Lactic Acid Calcium Lactate Dehydrogenase 191 Troponin I Total Protein 5.7 L Globulin 3.4 Albumin/Globulin Ratio 0.7 L TSH 0.88 Urine Color Urine Clarity Urine pH Ur Specific [place] Urine Protein Urine Glucose (UA) Urine Ketones Urine Occult Blood Urine Nitrite Urine Bilirubin Urine Urobilinogen Ur Leukocyte Esterase Urine RBC Urine WBC Ur Squamous Epith Cells Urine Bacteria Hyaline Casts Urine Mucus Assessment/Plan This patient was seen in conjunction with Matteo ALEXANDER. I have independently interviewed and examined the patient and reviewed pertinent history, examination findings, laboratory and plan of management. I have reviewed the note and agree with the documented findings with the few additional points. In brief, patient is admitted for acute hypoxic respiratory failure secondary to left pleural effusion, with history of metastatic non-small cell lung cancer. Patient had masslike density in the lingula with extension to the hilum previous CT scan and previous CT scan of May 2018 which progressed subsequently to occluded left main bronchus as seen in subsequent CT chest. patient had EGBUS which showed adenosquamous carcinoma. Subsequently patient had bronchial stent with laser ablation in left main bronchus. Patient had 5 pound weight loss in last [address] Pearce discussed with the patient and his and assessment is patient NOT currently candidate for chemotherapy or immunotherapy treatment because of severe protein calorie malnutrition and comorbid conditions. Dr. Pearce will further discuss regarding the CODE STATUS, goal of life care/palliative care I have discussed my assessment with Matteo ALEXANDER and orders have been reviewed. Code Visit Inpatient E&M: 89655 Subs Hosp L3
--- NOTE | 2018-07-26 15:04 | CASEMGMT ---
Assessment- 07-26-18 Living situation- with . He is set up on the 1st floor. There is a half bath on the first floor, but the shower is on the second floor. PCP: Dr Pino Specialists: Dr Pearce-Oncology, Dr.'s Yancey and Kayleigh-Pulmonary at [facility], Dr Hampton- Neurology at [facility] Pharmacy: [facility] DME: cane, walker, and nebulizer ADL's/IADL's: Patient requires assistance with most activities. Patient's handles his medications, cooks, cleans and drives patient. Past SNF/rehab: No Past HH: No LW: Yes, but not on file POA: Yes, but not on file. Patient's is ALIZA Reynolds Angel Plan: SW spoke with patient and his . Patient's said they are going to need something at d/c. She is having difficulty caring for him at home. He has been falling. She said the two of them are likely to have 2 different opinions on d/c plan. SW said therapy will see him and we can see what all of the doctors have to say to help in the decision. THOMAS to follow Lorri GAYTAN MSW
--- NOTE | 2018-07-26 15:57 | PCM.CONS.B ---
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 He received definitive chemotherapy and radiation which was completed in December 2009. ? He presented with hemoptysis and worsening shortness of breath. He underwent a CT of the chest on 05/30/2018 that showed a large infiltrative masslike density within the superior lingular extending into and infiltrating left hilum and mediastinum consistent with neoplasm. There was associated possible distal obstructive atelectasis observed. He underwent a repeat CT scan of the chest on 07/02/2018. The study redemonstrated a soft tissue mass surrounding the left hilar structures and extending into the subcarinal region. Soft tissue was observed to extend into the anterolateral chest wall. There was occlusion of the left mainstem bronchus. ? MRI of the brain on 07/02/2018 showed no evidence of metastatic disease. ? Patient underwent bronchoscopy with endoscopic ultrasound on 07/04/2018. There was a large lesion in the left mainstem bronchus and left upper lobe. Endobronchial biopsy demonstrated adenosquamous carcinoma. ALK1 is negative. He had laser ablation, balloon dilation and stent placement in left mainstem bronchus. EUS of both for RN for L nodes demonstrated adenosquamous cancer. ? Had about a 10-12 lb weight loss over several months prior to presentation. Was spending most of his days in a chair or on the couch. Napped?daily around 2 pm for about 1 1/2 to 2 hours. Bed was moved downstairs because could no longer?climb steps. Very short of breath when trying to go from room to room. Was not short of breath at rest. Frequent cough with sputum. No recent hemoptysis. ? PET 07/24/2018: 1. ?HEAD/NECK: Hypermetabolic right posterior cervical lymph node. 2. ?CHEST: FDG avid masslike consolidation in the lingula, compatible with hypermetabolic malignancy. ?Hypermetabolic mediastinal, left pulmonary hilar and left axillary lymphadenopathy. 3. ?ABDOMEN/PELVIS: Hypermetabolic right adrenal nodule, suspicious for metastasis. ?Hypermetabolic peritoneal nodule. ?No hypermetabolic adenopathy, or fluid collection. 4. ?EXTREMITIES/SKELETON: ?No suspicious FDG avid osseous process. Was seen in the office yesterday for simulation for palliative radiation to the hilar tumor. He was noted to be very lethargic, drowsy and had a room air pulse ox 58%. This increased to 70% on 2 L. His blood pressure was 89/50. He was brought to the ER by squad. On presentation blood gas showed normal PCO2. He was hydrated for acute kidney injury. INR was supratherapeutic at 11.1. patient became more alert later in the evening. Saturating mid 90s on 6 L. This morning he is more awake. He doesn't remember yesterday. He is not having chest pain. He is not short of breath subjectively at rest. He has a chronic cough with sputum production. No hemoptysis. He has not been febrile. Allergies bupropion Adverse Reaction (Intermediate, Verified 07/01/18 00:02) Other-dystonia Current Medications Acetaminophen (Tylenol Liquid) 640 mg PO DAILY [facility] Last Admin: 07/26/18 14:49 Dose: Not Given Acetylcysteine (Mucomyst) 800 mg INHALATION Q6H.RT [facility] Last Admin: 07/26/18 13:24 Dose: 800 mg Albuterol Sulfate (Ventolin Aerosols) 2.5 mg INHALATION Q4H PRN PRN Last Admin: 07/26/18 13:24 Dose: 2.5 mg Atorvastatin Calcium (Lipitor) 40 mg PO QHS [facility] Carbamazepine (Tegretol) 100 mg PO BID [facility] Last Admin: 07/26/18 14:50 Dose: Not Given Diazepam (Valium) 2 mg PO TID PRN PRN Reason: ANXIETY Gabapentin (Neurontin) 300 mg PO QHS [facility] Last Admin: 07/25/18 23:48 Dose: 300 mg Sodium Chloride () 1,000 mls @ 125 mls/hr IV .Q8H [facility] Last Admin: 07/26/18 15:10 Dose: 125 mls/hr Levothyroxine Sodium (Synthroid) 75 mcg PO DAILY@0600 [facility] Last Admin: 07/26/18 06:32 Dose: 75 mcg Magnesium Hydroxide (Milk Of Magnesia) 30 ml PO DAILY PRN PRN PRN Reason: Constipation Melatonin (Melatonin) 9 mg PO QHS [facility] Last Admin: 07/25/18 23:53 Dose: Not Given Metoprolol Tartrate (Lopressor (Beta Darwin)) 50 mg PO BID [facility] Last Admin: 07/26/18 14:50 Dose: Not Given Mirtazapine (Remeron) 15 mg PO QHS [facility] Last Admin: 07/25/18 23:48 Dose: 15 mg Nutritional Formula (Lactose Free) (Ensure Enlive) 120 ml PO 4X/DAY [facility] Last Admin: 07/26/18 14:50 Dose: Not Given Oxycodone HCl (Oxyir) 20 - 40 mg PO TID [facility] Last Admin: 07/26/18 14:50 Dose: 20 mg Sertraline HCl (Zoloft) 200 mg PO DAILY [facility] Last Admin: 07/26/18 14:49 Dose: Not Given Sodium Chloride () 5 - 15 ml IV UD PRN PRN Reason: SALINE FLUSH Trazodone HCl (Desyrel) 50 mg PO QHS [facility] Last Admin: 07/25/18 23:48 Dose: 50 mg All Active Problems (Last Reviewed 06/13/18 @ 15:04 by Scarlet Smith, ALLERGY NURSE-C) Hyponatremia (Acute) Insomnia (Acute) Dyspnea (Acute) Pneumonia (Acute) Anemia (Acute) Spasm (Acute) PHYSICAL EXAM: Vitals: Vital Signs Temp 98.7 F 07/26/18 10:15 Pulse 96 07/26/18 13:24 Resp 18 07/26/18 13:24 BP 106/55 L 07/26/18 10:15 Pulse Ox 95 07/26/18 10:15 Intake & Output 07/24/18 07/25/18 07/26/18 23:59 23:59 23:59 Intake Total 2182 / 2182 Output Total 925 / 925 Balance 1257 / 1257 Weight: 96 kg 96 kg Intake: Oral 200 / 200 IV fluid/meds 1981 Output: Urine 925 / 925 Drowsy-appearing and in no acute distress. EYES: Sclerae are anicteric bilaterally. NECK: Supple. LYMPHATIC: There is no palpable cervical, supraclavicular adenopathy. RESPIRATORY: there are tubular breath sounds in the left upper lung field. Absent breath sounds at the base. Very diminished coarse breath sounds on the right. CARDIOVASCULAR: Rhythm is regular. ABDOMEN: The abdomen is nondistended. Extremities: No swelling or edema. ASSESSMENT/PLAN: 1) Acute hypoxemic respiratory failure. Assessment: -Discussed with and agree with Dr. Underwood patient likely has advanced COPD and baseline need for oxygen recently exacerbated by the worsening pleural effusion. Plan: -Diagnostic and therapeutic ultrasound-guided thoracentesis once INR corrected. 2) Metastatic NSCLC. Assessment: -PDL1 40%. -Negative for EGFR, ALK1, ROS, RET and MET. -Given the molecular profile patient will require chemotherapy with immunotherapy if there is to be an overall survival benefit. Plan: -Discussed with his last evening that given his comorbid conditions, he currently is not a candidate for treatment. -Will follow and will also address code status.
--- NOTE | 2018-07-26 16:02 | CON.PCM_ITS ---
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 He received definitive chemotherapy and radiation which was completed in December 2009. ? He presented with hemoptysis and worsening shortness of breath. He underwent a CT of the chest on 05/30/2018 that showed a large infiltrative masslike density within the superior lingular extending into and infiltrating left hilum and mediastinum consistent with neoplasm. There was associated possible distal o bstructive atelectasis observed. He underwent a repeat CT scan of the chest on 07/02/2018. The study redemonstrated a soft tissue mass surrounding the left hilar structures and extending into the subcarinal region. Soft tissue was observed to extend into the anterolateral chest wall. There was occlusion of the left mainstem bronchus. ? MRI of the brain on 07/02/2018 showed no evidence of metastatic disease. ? Patient underwent bronchoscopy with endoscopic ultrasound on 07/04/2018. There was a large lesion in the left mainstem bronchus and left upper lobe. Endobronchial biopsy demonstrated adenosquamous carcinoma. ALK1 is negative. He had laser ablation, balloon dilation and stent placement in left mainstem bronchus. EUS of both for RN for L nodes demonstrated adenosquamous cancer. ? Had about a 10-12 lb weight loss over several months prior to presentation. Was spending most of his days in a chair or on the couch. Napped?daily around 2 pm for about 1 1/2 to 2 hours. Bed was moved downstairs because could no longer?climb steps. Very short of breath when trying to go from room to room. Was not short of breath at rest. Frequent cough with sputum. No recent hemoptysis. ? PET 07/24/2018: 1. ?HEAD/NECK: Hypermetabolic right posterior cervical lymph node. 2. ?CHEST: FDG avid masslike consolidation in the lingula, compatible with hypermetabolic malignancy. ?Hypermetabolic mediastinal, left pulmonary hilar and left axillary lymphadenopathy. 3. ?ABDOMEN/PELVIS: Hypermetabolic right adrenal nodule, suspicious for metastasis. ?Hypermetabolic peritoneal nodule. ?No hypermetabolic adenopathy, or fluid collection. 4. ?EXTREMITIES/SKELETON: ?No suspicious FDG avid osseous process. Was seen in the office yesterday for simulation for palliative radiation to the hilar tumor. He was noted to be very lethargic, drowsy and had a room air pulse ox 58%. This increased to 70% on 2 L. His blood pressure was 89/50. He was brought to the ER by squad. On presentation blood gas showed normal PCO2. He was hydrated for acute kidney injury. INR was supratherapeutic at 11.1. patient became more alert later in the evening. Saturating mid 90s on 6 L. This morning he is more awake. He doesn't remember yesterday. He is not having chest pain. He is not short of breath subjectively at rest. He has a chronic cough with sputum production. No hemoptysis. He has not been febrile. Allergies bupropion Adverse Reaction (Intermediate, Verified 07/01/18 00:02) Other-dystonia Current Medications Acetaminophen (Tylenol Liquid) 640 mg PO DAILY [facility] Last Admin: 07/26/18 14:49 Dose: Not Given Acetylcysteine (Mucomyst) 800 mg INHALATION Q6H.RT [facility] Last Admin: 07/26/18 13:24 Dose: 800 mg Albuterol Sulfate (Ventolin Aerosols) 2.5 mg INHALATION Q4H PRN PRN Last Admin: 07/26/18 13:24 Dose: 2.5 mg Atorvastatin Calcium (Lipitor) 40 mg PO QHS [facility] Carbamazepine (Tegretol) 100 mg PO BID [facility] Last Admin: 07/26/18 14:50 Dose: Not Given Diazepam (Valium) 2 mg PO TID PRN PRN Reason: ANXIETY Gabapentin (Neurontin) 300 mg PO QHS [facility] Last Admin: 07/25/18 23:48 Dose: 300 mg Sodium Chloride () 1,000 mls @ 125 mls/hr IV .Q8H [facility] Last Admin: 07/26/18 15:10 Dose: 125 mls/hr Levothyroxine Sodium (Synthroid) 75 mcg PO DAILY@0600 [facility] Last Admin: 07/26/18 06:32 Dose: 75 mcg Magnesium Hydroxide (Milk Of Magnesia) 30 ml PO DAILY PRN PRN PRN Reason: Constipation Melatonin (Melatonin) 9 mg PO QHS [facility] Last Admin: 07/25/18 23:53 Dose: Not Given Metoprolol Tartrate (Lopressor (Beta Darwin)) 50 mg PO BID [facility] Last Admin: 07/26/18 14:50 Dose: Not Given Mirtazapine (Remeron) 15 mg PO QHS [facility] Last Admin: 07/25/18 23:48 Dose: 15 mg Nutritional Formula (Lactose Free) (Ensure Enlive) 120 ml PO 4X/DAY [facility] Last Admin: 07/26/18 14:50 Dose: Not Given Oxycodone HCl (Oxyir) 20 - 40 mg PO TID [facility] Last Admin: 07/26/18 14:50 Dose: 20 mg Sertraline HCl (Zoloft) 200 mg PO DAILY [facility] Last Admin: 07/26/18 14:49 Dose: Not Given Sodium Chloride () 5 - 15 ml IV UD PRN PRN Reason: SALINE FLUSH Trazodone HCl (Desyrel) 50 mg PO QHS [facility] Last Admin: 07/25/18 23:48 Dose: 50 mg All Active Problems (Last Reviewed 06/13/18 @ 15:04 by Scarlet Smith, [employer]-C) Hyponatremia (Acute) Insomnia (Acute) Dyspnea (Acute) Pneumonia (Acute) Anemia (Acute) Spasm (Acute) PHYSICAL EXAM: Vitals: Vital Signs Temp 98.7 F 07/26/18 10:15 Pulse 96 07/26/18 13:24 Resp 18 07/26/18 13:24 BP 106/55 L 07/26/18 10:15 Pulse Ox 95 07/26/18 10:15 Intake & Output 07/24/18 07/25/18 07/26/18 23:59 23:59 23:59 Intake Total 2182 / 2182 Output Total 925 / 925 Balance 1257 / 1257 Weight: 96 kg 96 kg Intake: Oral 200 / 200 IV fluid/meds 1981 Output: Urine 925 / 925 Drowsy-appearing and in no acute distress. EYES: Sclerae are anicteric bilaterally. NECK: Supple. LYMPHATIC: There is no palpable cervical, supraclavicular adenopathy. RESPIRATORY: there are tubular breath sounds in the left upper lung field. Absent breath sounds at the base. Very diminished coarse breath sounds on the right. CARDIOVASCULAR: Rhythm is regular. ABDOMEN: The abdomen is nondistended. Extremities: No swelling or edema. ASSESSMENT/PLAN: 1) Acute hypoxemic respiratory failure. Assessment: -Discussed with and agree with Dr. Underwood patient likely has advanced COPD and baseline need for oxygen recently exacerbated by the worsening pleural effusion. Plan: -Diagnostic and therapeutic ultrasound-guided thoracentesis once INR corrected. 2) Metastatic NSCLC. Assessment: -PDL1 40%. -Negative for EGFR, ALK1, ROS, RET and MET. -Given the molecular profile patient will require chemotherapy with immunotherapy if there is to be an overall survival benefit. Plan: -Discussed with his last evening that given his comorbid conditions, he currently is not a candidate for treatment. -Will follow and will also address code status.
[2018-07-26] MEDS: traZODone 50 MG Tablet PO (23:01)
[2018-07-26] MEDS: Metoprolol Tartrate 50 MG Tablet PO (23:02)
[2018-07-26] MEDS: Atorvastatin Calcium 40 MG Tablet PO (23:02)
[2018-07-26] MEDS: MELATONIN 3 MG TABLET 9 MG PO (23:03)
[2018-07-26] MEDS: Gabapentin 300 MG Capsule PO (23:03)
[2018-07-26] MEDS: Mirtazapine 15 MG Tablet PO (23:09)
[2018-07-26] MEDS: carBAMazepine 200 MG Tablet 100 MG PO (23:09)
[2018-07-27] VITALS (10 sets, daily range): BP systolic 121–165; BP diastolic 71–93; PULSE 74–89; RESP 16–20; TEMP 36.4–37; O2SAT 93–99
--- NOTE | 2018-07-27 | FLU_PTH ---
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 Robert Adnre MD : 1950 BED: 1 DIS: 07/27/2018 SPEC #: [id number] RECD: 07/30/18 13:07 STATUS: ASHLEY REQ #: [id number] BRITTANIE: 07/27/18 00:[address]: Robert Andre DEPT: CYTOLOGY RECD BY: Franck Naylor ENTERED: 07/30/18 13:08 SP TYPE: Fluid OTHR DR: DO Dr. Brandan Ramos MD Dr. Nana Yaa Koram, MD Dr. Paul Masci, DO Tissues: THORACIC FLUID Procedures: Pap Stain (control) Special Stain Group II Surgery Specimen Level IV Cell Block Cytospin Fluid HEADER OPERATION: Ultrasound-guided left thoracentesis PRE-OP DIAGNOSIS: Small left pleural effusion TISSUE SUBMITTED: Thoracentesis fluid for cytology DIAGNOSIS CYTOLOGY Thoracentesis fluid for cytology (cytospin and cell block): Negative for malignant cells. Acute inflammation. WALLACE:gene 08/01/18 CYTOLOGY STUDY Slides are reviewed. CYTOLOGY GROSS Received is 8 ml of cloudy yellow fluid labeled with the patient's name and and designated per the requisition as thoracentesis. Submitted for cytology preparation including cell block. / 07/30/18 TC:2 CPT: 56205, 91897
[2018-07-27] MEDS: oxyCODONE 5 MG Tablet PO (01:13)
--- NOTE | 2018-07-27 04:15 | CPS ---
2134 07/26/2018 PT KEPT TAKING OFF AEROSOL MASK. SAID HE COULDN'T STAND IT, PT ONLY RECEIVED HALF OF THE AEROSOL TX. RN NOTIFIED.
[2018-07-27] MEDS: 0.9% Normal Saline 1,000 ML 125 ML IV (07:00)
[2018-07-27] MEDS: Levothyroxine 75 MCG Tablet PO (07:01)
[2018-07-27] MEDS: oxyCODONE 5 MG Tablet 10 MG PO ×2 (07:01→14:35)
[2018-07-27 07:30] LABS: Hematocrit 28.6 % (40-54); Hemoglobin 9.1 g/dl (13.0-16.5); Mean Corp Hgb Conc 31.8 g/gl (32-36); Mean Corpuscular Hgb 25.1 pg (27.0-32.0); Mean Platelet Vol. 8.8 fl (6.2-12.0); Platelet Count 350 K/mm3 (150-450); RBC Distribution Width SD 43.6 fl (35.1-43.9); Red Blood Count 3.62 M/mm3 (4.6-6.2); White Blood Count 6.1 K/mm3 (4.4-11.0)
[2018-07-27 07:32] LABS: Scan Indicated on CBC? Y/N NO
[2018-07-27 07:37] LABS: International Normalized Ratio 1.3; Prothrombin Time (Protime)PT. 16.1 SECONDS (11.7-14.9)
[2018-07-27 07:52] LABS: Anion Gap 8 (5-15); BUN 15 mg/dL (7-18); BUN/Creat Ratio 23.3 RATIO (10-20); Calcium,Total 8.3 mg/dL (8.5-10.1); Chloride 102 mmol/L (98-107); Creatinine, Serum 0.64 mg/dL (0.70-1.30); EST Glomerular Filtration Rate 132 mL/min (>60); Est Glom Filt Rate - Afr Amer 159 mL/min (>60); Estimated Creatinine Clearance 83.34 ml/min; Glucose 106 mg/dL (74-106); Potassium 4.3 mmol/L (3.5-5.1); Sodium Level 133 mmol/L (136-145)
[2018-07-27] MEDS: Acetaminophen 160 MG/5 ML UDC 640 MG PO (09:13)
[2018-07-27] MEDS: carBAMazepine 200 MG Tablet 100 MG PO (09:13)
[2018-07-27] MEDS: Metoprolol Tartrate 50 MG Tablet PO (09:13)
[2018-07-27] MEDS: Sertraline 100 MG Tablet 200 MG PO (09:14)
--- NOTE | 2018-07-27 10:52 | CASEMGMT ---
Patient's said patient has a healthcare LW and POA. They are not on file and will bring them in if she remembers. Lorri GAYTAN MSW
--- NOTE | 2018-07-27 11:27 | PCM.PROGNOTE ---
Subjective: The patient was seen and examined at the bedside this morning. Events from the last 24 hours have been reviewed. The patient is currently afebrile, hemodynamically stable and maintaining appropriate oxygen saturations on 3 L/min via nasal cannula. The patient has been intermittently confused this morning and restless. He is currently scheduled to undergo an ultrasound-guided thoracentesis this afternoon. His is not currently present at the bedside. Documentation from Dr. Pearce was reviewed. Objective: The patient's most recent lab work, culture data and imaging studies have all been personally reviewed. - Physical Exam General: Alert, Cooperative, - - Intermittently confused. HEENT: Atraumatic, PERRLA, Normocephalic Oral: No Gingival or Mucosal Lesions/ Ulcerations Neck: Supple, No Nodes, Trachea Midline Lungs: No rhonchi, No wheeze, No rales, Diminished Cardiovascular: Regular rate, Regular Rhythm, Normal S1, Normal S2, No murmurs Abdomen: Bowel Sounds Present, Soft, Non Tender Extremities: No clubbing, No cyanosis, No edema Skin: No breakdown Musculoskeletal: No Tenderness to Palpation of Joints or Extremities Lymphatic: No Cervical, Supraclavicular, or Inguinal Adenopathy Neurological: Neuro grossly intact Psych/Mental Status: Flat Affect, Restless Vital Signs Temp Pulse Resp BP Pulse Ox 37.0 C 75 20 H 121/71 H 97 07/27/18 10:35 07/27/18 11:00 07/27/18 10:35 07/27/18 10:35 07/27/18 10:35 Oxygen Flow Rate (L/min) 3 Oxygen Delivery Method Nasal Cannula Weight: 211 lb 10.3 oz Body Mass Index (BMI) 27.1 Intake and Output for Last 24 Hours 07/25/18 07/26/18 07/27/18 23:59 23:59 23:59 Intake Total 3122 / 3122 1515 / 1515 Output Total 1375 / 1375 500 / 500 Balance 1747 / 1747 1015 / 1015 Laboratory Tests Past 24 Hrs 07/26/18 07/26/18 07/26/18 05:20 05:20 11:48 WBC RBC Hgb Hct MCV MCH MCHC RDW RDW Differential Plt Count MPV PT INR Specimen Type ART Sample Site L Radial pH 7.34 L Bicarbonate Actual 20.5 L POC Total CO2 22 Base Excess -5 L O2 Saturation 92 L ABG pCO2 37.8 ABG pO2 67 L Andrew Test POS O2 Delivery Device Nasal Can Liter Flow 3.0 Blood Gas Notified Whom ICU MD Blood Gas Notified Time 1145 Sodium Potassium Chloride Carbon Dioxide Anion Gap BUN Creatinine Estim Creat Clear Calc Est GFR (MDRD) Af Amer Est GFR (MDRD) Non-Af BUN/Creatinine Ratio Glucose Calcium Lactate Dehydrogenase 191 Total Protein 5.7 L Globulin 3.4 Albumin/Globulin Ratio 0.7 L TSH 0.88 07/27/18 07/27/18 07/27/18 07:00 07:00 07:00 WBC 6.1 RBC 3.62 L Hgb 9.1 L Hct 28.6 L MCV 79.0 L MCH 25.1 L MCHC 31.8 L RDW 15.0 H RDW Differential 43.6 Plt Count 350 MPV 8.8 PT 16.1 H INR 1.3 Specimen Type Sample Site pH Bicarbonate Actual POC Total CO2 Base Excess O2 Saturation ABG pCO2 ABG pO2 Andrew Test O2 Delivery Device Liter Flow Blood Gas Notified Whom Blood Gas Notified Time Sodium 133 L Potassium 4.3 Chloride 102 Carbon Dioxide 23.0 Anion Gap 8 BUN 15 Creatinine 0.64 L Estim Creat Clear Calc 83.34 Est GFR (MDRD) Af Amer 159 Est GFR (MDRD) Non-Af 132 BUN/Creatinine Ratio 23.3 H Glucose 106 Calcium 8.3 L Lactate Dehydrogenase Total Protein Globulin Albumin/Globulin Ratio TSH Clinical Impression(s) from Imaging Studies Chest X-Ray 07/25/18 17:16 IMPRESSION: Left lower lobe infiltrate with pleural effusion follow-up recommended to assure resolution Platelike atelectasis in the right base Electronically Signed: Isai Pineda MD at 18:06 EST , Service support , Chest Ultrasound 07/26/18 12:55 IMPRESSION: Small left pleural effusion. Electronically Signed: Josh Rush MD at 9:37 EST Tel [phone], Service support , Medical Necessity - Tobacco Use Smoking Status: Current every day smoker Assessment/Plan All Active Problems (Last Reviewed 06/13/18 @ 15:04 by PANTERA SiddiqiC) Hyponatremia (Acute) Insomnia (Acute) Dyspnea (Acute) Pneumonia (Acute) Anemia (Acute) Spasm (Acute) RECOMMENDATIONS: 1. Recommend proceeding with a diagnostic/therapeutic ultrasound-guided thoracentesis. 2. Wean supplemental oxygen as tolerated. 3. Consider hospice care referral. IMPRESSIONS: 1. Acute hypoxic respiratory failure/newly identified pleural effusion The patient presented to the hospital with a new supplemental oxygen requirement. He does have presumptive COPD, but has never undergone pulmonary function testing. In addition, he does have newly diagnosed metastatic non-small cell lung cancer and recently underwent endobronchial stenting at the [facility]. I strongly suspect that the patient likely had a supplemental oxygen requirement, even as an outpatient, that was never identified. He did follow up with our nurse practitioner, at which time, pulmonary function testing and a walking oximetry study was ordered. However, the patient never completed testing. In addition to the aforementioned, he now has a moderate sized left-sided pleural effusion, which is also likely contributing to his dyspnea and oxygen requirement. It is highly possible that this pleural effusion is the consequence of his newly diagnosed lung cancer. Therefore, I would recommend proceeding with an ultrasound-guided thoracentesis. 2. Newly diagnosed metastatic non-small cell lung cancer Oncology is following. Based upon the patient's performance status and comorbid conditions, he is not currently a candidate for treatment. Would recommend considering referral to hospice care at this time. 3. Acute kidney injury Resolved. Likely prerenal in etiology, as the patient's intake has been exceedingly poor. Anticipate improvement with volume expansion. There is no indication for renal replacement therapy at this time. 4. Anemia/chronic oropharyngeal dysphasia/chronic pain syndrome/hypothyroidism/history of head neck cancer/severe debility Complicates care, management, recovery and prognosis. Continue home medications as indicated. Physical therapy to work with patient. This note was generated with [employer] dictation software. It may contain incorrect words, spelling, and punctuation that were not noted in checking the note before signing. Code Visit Inpatient E&M: 42298 Subs Hosp L2
--- NOTE | 2018-07-27 11:32 | PN_ITS ---
Subjective: The patient was seen and examined at the bedside this morning. Events from the last 24 hours have been reviewed. The patient is currently afebrile, hemodynamically stable and maintaining appropriate oxygen saturations on 3 L/min via nasal cannula. The patient has been intermittently confused this morning and restless. He is currently scheduled to undergo an ultrasound-guided thoracentesis this afternoon. His is not currently present at the bedside. Documentation from Dr. Pearce was reviewed. Objective: The patient's most recent lab work, culture data and imaging studies have all been personally reviewed. - Physical Exam General: Alert, Cooperative, - - Intermittently confused. HEENT: Atraumatic, PERRLA, Normocephalic Oral: No Gingival or Mucosal Lesions/ Ulcerations Neck: Supple, No Nodes, Trachea Midline Lungs: No rhonchi, No wheeze, No rales, Diminished Cardiovascular: Regular rate, Regular Rhythm, Normal S1, Normal S2, No murmurs Abdomen: Bowel Sounds Present, Soft, Non Tender Extremities: No clubbing, No cyanosis, No edema Skin: No breakdown Musculoskeletal: No Tenderness to Palpation of Joints or Extremities Lymphatic: No Cervical, Supraclavicular, or Inguinal Adenopathy Neurological: Neuro grossly intact Psych/Mental Status: Flat Affect, Restless Vital Signs Temp Pulse Resp BP Pulse Ox 37.0 C 75 20 H 121/71 H 97 07/27/18 10:35 07/27/18 11:00 07/27/18 10:35 07/27/18 10:35 07/27/18 10:35 Oxygen Flow Rate (L/min) 3 Oxygen Delivery Method Nasal Cannula Weight: 211 lb 10.3 oz Body Mass Index (BMI) 27.1 Intake and Output for Last 24 Hours 07/25/18 07/26/18 07/27/18 23:59 23:59 23:59 Intake Total 3122 / 3122 1515 / 1515 Output Total 1375 / 1375 500 / 500 Balance 1747 / 1747 1015 / 1015 Laboratory Tests Past 24 Hrs 07/26/18 07/26/18 07/26/18 05:20 05:20 11:48 WBC RBC Hgb Hct MCV MCH MCHC RDW RDW Differential Plt Count MPV PT INR Specimen Type ART Sample Site L Radial pH 7.34 L Bicarbonate Actual 20.5 L POC Total CO2 22 Base Excess -5 L O2 Saturation 92 L ABG pCO2 37.8 ABG pO2 67 L Andrew Test POS O2 Delivery Device Nasal Can Liter Flow 3.0 Blood Gas Notified Whom ICU MD Blood Gas Notified Time 1145 Sodium Potassium Chloride Carbon Dioxide Anion Gap BUN Creatinine Estim Creat Clear Calc Est GFR (MDRD) Af Amer Est GFR (MDRD) Non-Af BUN/Creatinine Ratio Glucose Calcium Lactate Dehydrogenase 191 Total Protein 5.7 L Globulin 3.4 Albumin/Globulin Ratio 0.7 L TSH 0.88 07/27/18 07/27/18 07/27/18 07:00 07:00 07:00 WBC 6.1 RBC 3.62 L Hgb 9.1 L Hct 28.6 L MCV 79.0 L MCH 25.1 L MCHC 31.8 L RDW 15.0 H RDW Differential 43.6 Plt Count 350 MPV 8.8 PT 16.1 H INR 1.3 Specimen Type Sample Site pH Bicarbonate Actual POC Total CO2 Base Excess O2 Saturation ABG pCO2 ABG pO2 Andrew Test O2 Delivery Device Liter Flow Blood Gas Notified Whom Blood Gas Notified Time Sodium 133 L Potassium 4.3 Chloride 102 Carbon Dioxide 23.0 Anion Gap 8 BUN 15 Creatinine 0.64 L Estim Creat Clear Calc 83.34 Est GFR (MDRD) Af Amer 159 Est GFR (MDRD) Non-Af 132 BUN/Creatinine Ratio 23.3 H Glucose 106 Calcium 8.3 L Lactate Dehydrogenase Total Protein Globulin Albumin/Globulin Ratio TSH Clinical Impression(s) from Imaging Studies Chest X-Ray 07/25/18 17:16 IMPRESSION: Left lower lobe infiltrate with pleural effusion follow-up recommended to assure resolution Platelike atelectasis in the right base Electronically Signed: Isai Pineda MD at 18:06 EST , Service support , Chest Ultrasound 07/26/18 12:55 IMPRESSION: Small left pleural effusion. Electronically Signed: Josh Rush MD at 9:37 EST Tel [phone], Service support , Medical Necessity - Tobacco Use Smoking Status: Current every day smoker Assessment/Plan All Active Problems (Last Reviewed 06/13/18 @ 15:04 by PANTERA SiddiqiC) Hyponatremia (Acute) Insomnia (Acute) Dyspnea (Acute) Pneumonia (Acute) Anemia (Acute) Spasm (Acute) RECOMMENDATIONS: 1. Recommend proceeding with a diagnostic/therapeutic ultrasound-guided thoracentesis. 2. Wean supplemental oxygen as tolerated. 3. Consider hospice care referral. IMPRESSIONS: 1. Acute hypoxic respiratory failure/newly identified pleural effusion The patient presented to the hospital with a new supplemental oxygen requirement. He does have presumptive COPD, but has never undergone pulmonary function testing. In addition, he does have newly diagnosed metastatic non- small cell lung cancer and recently underwent endobronchial stenting at the [facility]. I strongly suspect that the patient likely had a supplemental oxygen requirement, even as an outpatient, that was never identified. He did follow up with our nurse practitioner, at which time, pulmonary function testing and a walking oximetry study was ordered. However, the patient never completed testing. In addition to the aforementioned, he now has a moderate sized left- sided pleural effusion, which is also likely contributing to his dyspnea and oxygen requirement. It is highly possible that this pleural effusion is the consequence of his newly diagnosed lung cancer. Therefore, I would recommend proceeding with an ultrasound-guided thoracentesis. 2. Newly diagnosed metastatic non-small cell lung cancer Oncology is following. Based upon the patient's performance status and comorbid conditions, he is not currently a candidate for treatment. Would recommend considering referral to hospice care at this time. 3. Acute kidney injury Resolved. Likely prerenal in etiology, as the patient's intake has been exceedingly poor. Anticipate improvement with volume expansion. There is no indication for renal replacement therapy at this time. 4. Anemia/chronic oropharyngeal dysphasia/chronic pain syndrome/hypothyroidism/history of head neck cancer/severe debility Complicates care, management, recovery and prognosis. Continue home medications as indicated. Physical therapy to work with patient. This note was generated with [employer] dictation software. It may contain incorrect words, spelling, and punctuation that were not noted in checking the note before signing. Code Visit Inpatient E&M: 97317 Subs Hosp L2
--- NOTE | 2018-07-27 12:17 | CASEMGMT ---
Addendum entered by Lorri Fernandez 07/27/18 13:14: Patient's spoke with Hospice and they are meeting at 3p today. Lorri MACDONALD Original Note: HSE COORDINATOR spoke with patient's and she agreed to inpatient Hospice. SW called Ekaterina at Hospice with referral and faxed information. SW let patient's know they will be calling her to schedule appt. Lorri GAYTAN MSW
--- NOTE | 2018-07-27 13:50 | RAD_ITS ---
STUDY: X-RAY CHEST REASON FOR EXAM: Male, 67 years old. The patient is status post left thoracentesis. TECHNIQUE: AP inspiration and expiration views. COMPARISON: Comparison is made with prior study dated July 25, 2018. FINDINGS: There is evidence of very tiny left apical pneumothorax. There has been increase in infiltration in the left lower lobe as compared to prior study. Increased markings at the right lung base. RAD/Chest Insp/Exp 2 View IMPRESSION: Status post left thoracentesis. There is evidence of a tiny apical left pneumothorax. Electronically Signed: Josh Rush MD at 15:21 EST Tel [phone], Service support ,
--- NOTE | 2018-07-27 14:00 | US_ITS ---
PROCEDURE: ULTRASOUND GUIDED THORACENTESIS. DATE: July 27, 2018. INDICATION: Male, 67 years old. Small left pleural effusion. PHYSICIAN: Josh Rush M.D. PROCEDURE: The risks, benefits, and alternatives to the procedure were explained to the patient. The specific risks of bleeding, infection, and pneumothorax requiring chest tube insertion were discussed and accepted. Written informed consent was obtained. Ultrasonographic evaluation of the left lower pleural space was carried out. An adequate pocket was identified. The patient was placed in the sitting, upright position. The overlying skin was prepped and draped in sterile fashion. 1% lidocaine was administered subcutaneously for local anesthesia. Under ultrasound guidance, a 5 [place] thoracentesis needle/catheter system was advanced into the left posterior lower pleural fluid collection. Approximately 10 mL of blake-colored fluid was drained. The catheter was removed, and a sterile dressing was applied. A specimen was collected and sent to the laboratory for analysis, as requested by the referring clinician. The patient tolerated the procedure well. A chest x-ray was ordered. US/Thoracentesis W US IMPRESSION: Ultrasound-guided left thoracentesis. Electronically Signed: Josh Rush MD at 15:23 EST Tel [phone], Service support ,
--- NOTE | 2018-07-27 14:50 | PCM.PROGNOTE ---
<Ketty Wallace - Last Filed: 07/27/18 14:54> Subjective: Patient seen and examined. Restless and intermittent confusion. Complains of generalized pain. - Physical Exam General: Alert, Cooperative HEENT: Atraumatic, PERRLA, EOMI, Normocephalic Neck: Supple, No JVD, Negative Carotid Bruits Lungs: Clear to auscultation, Diminished Cardiovascular: Regular rate, Regular Rhythm, Normal S1, Normal S2, No murmurs Abdomen: Bowel Sounds Present, Soft, Non Tender, Non-Distended Extremities: No clubbing, No cyanosis, No edema, Capillary Refill Less than 3 Seconds Skin: No rashes, No breakdown Musculoskeletal: No Tenderness to Palpation of Joints or Extremities Neurological: Cranial nerves II-XII grossly intact, Neuro grossly intact Psych/Mental Status: Normal Affect, Appropriate Vital Signs Temp Pulse Resp BP Pulse Ox 98.6 F 77 20 H 148/85 H 93 07/27/18 10:35 07/27/18 14:45 07/27/18 14:45 07/27/18 14:45 07/27/18 14:45 Oxygen Flow Rate (L/min) 3 Oxygen Delivery Method Room Air Weight: 211 lb 10.3 oz Body Mass Index (BMI) 27.1 Intake and Output for Last 24 Hours 07/25/18 07/26/18 07/27/18 23:59 23:59 23:59 Intake Total 3122 / 3122 2455 / 2455 Output Total 1375 / 1375 500 / 500 Balance 1747 / 1747 1955 / 1955 Laboratory Tests Past 24 Hrs 07/27/18 07/27/18 07/27/18 07:00 07:00 07:00 WBC 6.1 RBC 3.62 L Hgb 9.1 L Hct 28.6 L MCV 79.0 L MCH 25.1 L MCHC 31.8 L RDW 15.0 H RDW Differential 43.6 Plt Count 350 MPV 8.8 PT 16.1 H INR 1.3 Sodium 133 L Potassium 4.3 Chloride 102 Carbon Dioxide 23.0 Anion Gap 8 BUN 15 Creatinine 0.64 L Estim Creat Clear Calc 83.34 Est GFR (MDRD) Af Amer 159 Est GFR (MDRD) Non-Af 132 BUN/Creatinine Ratio 23.3 H Glucose 106 Calcium 8.3 L Medical Necessity - Tobacco Use Smoking Status: Current every day smoker Assessment/Plan All Active Problems (Last Reviewed 06/13/18 @ 15:04 by JADA Siddiqi) Hyponatremia (Acute) Insomnia (Acute) Dyspnea (Acute) Pneumonia (Acute) Anemia (Acute) Spasm (Acute) 1. Acute hypoxic respiratory failure secondary to left pleural effusion suspected as a result of recently diagnosed metastatic non-small cell lung cancer-Pulmonary consulted. Following with [facility] as outpatient, consulted. Has not yet undergone chemotherapy or radiation. This was being discussed at initial appointment with Dr. Pearce. Patient underwent ultrasound-guided thoracentesis with only 10 cc fluid removed. Per oncology, patient is not a candidate for chemotherapy/radiation. Patient and patient's agreeable to hospice at this time. Hospice consult pending. 2. Recent diagnosis metastatic non-small cell lung cancer-hospice transition. 3. Supratherapeutic INR-resolved. 4. Acute kidney injury-resolved with IV fluids. 5. Mild hyponatremia, suspect secondary to poor oral intake/hypovolemia-improved with IV fluids. 6. Hypertension-continue metoprolol. Hold lisinopril given acute kidney injury. 7. Hypothyroidism-continue Synthroid regimen. 8. Depression-continue trazodone, sertraline regimen. 9. Hyperlipidemia-continue statin. 10. Chronic microcytic anemia- stable. 11. Severe debility with recurrent falls at home- PT/OT. DVT prophylaxis-Coumadin. Discharge planning: Inpatient hospice versus SNF with hospice pending hospice evaluation. This patient was seen by JADA Antoine under the supervision of Dr. Andre. <Robert Andre - Last Filed: 07/27/18 15:56> Subjective: Seen and examined. Discussed with the patient and his in the room. Patient is very weak, diffuse muscle atrophy. Weak voice. Restless and drowsy and lethargic. Mild shortness of breath. Assessment and recommendation of Dr. Pearce conveyed to the patient and his that patient is not a candidate of chemotherapy and immunotherapy at present time with severe protein calorie malnutrition - Physical Exam General: Alert, Cooperative, Lethargic HEENT: Atraumatic, PERRLA, EOMI, Normocephalic Neck: Supple, No JVD, Negative Carotid Bruits Lungs: Diminished - Air entry similarly diminished in left lung., Rhonchi - Expiratory rhonchi present. Cardiovascular: Regular rate, Regular Rhythm, Normal S1, Normal S2, No murmurs Abdomen: Bowel Sounds Present, Soft, Non Tender, Non-Distended, - - Scaphoid abdomen Extremities: No clubbing Skin: No rashes, No breakdown Musculoskeletal: No Tenderness to Palpation of Joints or Extremities, Arthritic Changes, Cachexia, Muscle Wasting Neurological: Cranial nerves II-XII grossly intact, Deep Tendon Reflexes 2+/4 and Symmetrical, Neuro grossly intact, - - Muscle strength: Generalized weakness, 4/5. Diffuse muscle atrophy Vital Signs Temp Pulse Resp BP Pulse Ox 98.6 F 77 20 H 148/85 H 93 07/27/18 10:35 07/27/18 14:45 07/27/18 14:45 07/27/18 14:45 07/27/18 14:45 Oxygen Flow Rate (L/min) [4] 2 Oxygen Flow Rate (L/min) [3] 2 Oxygen Flow Rate (L/min) [2] 2 Oxygen Flow Rate (L/min) [1 ( 2 Initial Baseline)] Oxygen Flow Rate (L/min) 3 Oxygen Delivery Method [4] Nasal Cannula Oxygen Delivery Method [1 ( Nasal Cannula Initial Baseline)] Oxygen Delivery Method Room Air Weight: 211 lb 10.3 oz Body Mass Index (BMI) 27.1 Intake and Output for Last 24 Hours 07/25/18 07/26/18 07/27/18 23:59 23:59 23:59 Intake Total 3122 / 3122 2455 / 2455 Output Total 1375 / 1375 500 / 500 Balance 1747 / 1747 1954 / 1954 Laboratory Tests Past 24 Hrs 07/27/18 07/27/18 07/27/18 07:00 07:00 07:00 WBC 6.1 RBC 3.62 L Hgb 9.1 L Hct 28.6 L MCV 79.0 L MCH 25.1 L MCHC 31.8 L RDW 15.0 H RDW Differential 43.6 Plt Count 350 MPV 8.8 PT 16.1 H INR 1.3 Sodium 133 L Potassium 4.3 Chloride 102 Carbon Dioxide 23.0 Anion Gap 8 BUN 15 Creatinine 0.64 L Estim Creat Clear Calc 83.34 Est GFR (MDRD) Af Amer 159 Est GFR (MDRD) Non-Af 132 BUN/Creatinine Ratio 23.3 H Glucose 106 Calcium 8.3 L Fluid Source Fluid Color Fluid Appearance Fluid WBC Fluid RBC Fluid Tot Cell Count Fld Polynuclear WBCs # Fld Polynuclear WBCs % Fluid Mononuclear WBCs Fld Mononuclear WBCs % Fluid Neutrophils Fluid Lymphocytes Fluid Monocytes Fl Pathologist Comment Fluid Glucose Fluid Total Protein Fluid LDH Fluid Comment 2 Miscellaneous Cytology 07/27/18 07/27/18 07/27/18 14:00 14:00 14:00 WBC RBC Hgb Hct MCV MCH MCHC RDW RDW Differential Plt Count MPV PT INR Sodium Potassium Chloride Carbon Dioxide Anion Gap BUN Creatinine Estim Creat Clear Calc Est GFR (MDRD) Af Amer Est GFR (MDRD) Non-Af BUN/Creatinine Ratio Glucose Calcium Fluid Source THORACENTESIS Fluid Color LT YEL Fluid Appearance SL CLDY Fluid WBC 1.023 Fluid RBC 0.45785 Fluid Tot Cell Count 1.029 Fld Polynuclear WBCs # 0.681 Fld Polynuclear WBCs % 66.6 Fluid Mononuclear WBCs 0.342 Fld Mononuclear WBCs % 33.4 Fluid Neutrophils 64 Fluid Lymphocytes 27 Fluid Monocytes 9 Fl Pathologist Comment May follow Fluid Glucose Pending Fluid Total Protein Pending Fluid LDH Pending Fluid Comment 2 SEE COMMENT Miscellaneous Cytology Pending Assessment/Plan This patient was seen in conjunction with PATIENT ASSESSMENT COORDINATOR, Ketty. I have independently interviewed and examined the patient and reviewed pertinent history, examination findings, laboratory and plan of management. I have reviewed the note and agree with the documented findings with the few additional points. In brief, patient is admitted for acute hypoxic respiratory failure secondary to left pleural effusion, with history of metastatic non-small cell lung cancer. Patient had masslike density in the lingula with extension to the hilum previous CT scan and previous CT scan of May 2018 which progressed subsequently to occluded left main bronchus as seen in subsequent CT chest. patient had EGBUS which showed adenosquamous carcinoma. Subsequently patient had bronchial stent with laser ablation in left main bronchus. Patient had 5 pound weight loss in last [address] Pearce discussed with the patient and his and assessment is patient NOT currently candidate for chemotherapy or immunotherapy treatment because of severe protein calorie malnutrition and comorbid conditions. Patient had left-sided ultrasound-guided thoracocentesis done today. Patient had only about 10 cc fluid removed. Fluid chemistry is pending. Cell count shows total WBC about 1000 and RBC 2000 cells. Polynuclear 66%, mononuclear 33%. Monocytes 9. Patient's is agreeable to hospice consult. Hospice has been consulted. I have discussed my assessment with PATIENT ASSESSMENT COORDINATORKetty and orders have been reviewed. Code Visit Inpatient E&M: 01754 Subs Hosp L3
[2018-07-27 14:51] LABS: Cytology, Body Fluid / CSF SEE PATHOLOGY REPORT
--- NOTE | 2018-07-27 14:54 | PN_ITS ---
<Ketty Wallaec - Last Filed: 07/27/18 14:54> Subjective: Patient seen and examined. Restless and intermittent confusion. Complains of generalized pain. - Physical Exam General: Alert, Cooperative HEENT: Atraumatic, PERRLA, EOMI, Normocephalic Neck: Supple, No JVD, Negative Carotid Bruits Lungs: Clear to auscultation, Diminished Cardiovascular: Regular rate, Regular Rhythm, Normal S1, Normal S2, No murmurs Abdomen: Bowel Sounds Present, Soft, Non Tender, Non-Distended Extremities: No clubbing, No cyanosis, No edema, Capillary Refill Less than 3 S econds Skin: No rashes, No breakdown Musculoskeletal: No Tenderness to Palpation of Joints or Extremities Neurological: Cranial nerves II-XII grossly intact, Neuro grossly intact Psych/Mental Status: Normal Affect, Appropriate Vital Signs Temp Pulse Resp BP Pulse Ox 98.6 F 77 20 H 148/85 H 93 07/27/18 10:35 07/27/18 14:45 07/27/18 14:45 07/27/18 14:45 07/27/18 14:45 Oxygen Flow Rate (L/min) 3 Oxygen Delivery Method Room Air Weight: 211 lb 10.3 oz Body Mass Index (BMI) 27.1 Intake and Output for Last 24 Hours 07/25/18 07/26/18 07/27/18 23:59 23:59 23:59 Intake Total 3122 / 3122 2455 / 2455 Output Total 1375 / 1375 500 / 500 Balance 1747 / 1747 1955 / 1955 Laboratory Tests Past 24 Hrs 07/27/18 07/27/18 07/27/18 07:00 07:00 07:00 WBC 6.1 RBC 3.62 L Hgb 9.1 L Hct 28.6 L MCV 79.0 L MCH 25.1 L MCHC 31.8 L RDW 15.0 H RDW Differential 43.6 Plt Count 350 MPV 8.8 PT 16.1 H INR 1.3 Sodium 133 L Potassium 4.3 Chloride 102 Carbon Dioxide 23.0 Anion Gap 8 BUN 15 Creatinine 0.64 L Estim Creat Clear Calc 83.34 Est GFR (MDRD) Af Amer 159 Est GFR (MDRD) Non-Af 132 BUN/Creatinine Ratio 23.3 H Glucose 106 Calcium 8.3 L Medical Necessity - Tobacco Use Smoking Status: Current every day smoker Assessment/Plan All Active Problems (Last Reviewed 06/13/18 @ 15:04 by JADA Siddiqi) Hyponatremia (Acute) Insomnia (Acute) Dyspnea (Acute) Pneumonia (Acute) Anemia (Acute) Spasm (Acute) 1. Acute hypoxic respiratory failure secondary to left pleural effusion suspected as a result of recently diagnosed metastatic non-small cell lung cancer-Pulmonary consulted. Following with [facility] as outpatient, consulted. Has not yet undergone chemotherapy or radiation. This was being discussed at initial appointment with Dr. Pearce. Patient underwent ultrasound-guided thoracentesis with only 10 cc fluid removed. Per oncology, patient is not a candidate for chemotherapy/radiation. Patient and patient's agreeable to hospice at this time. Hospice consult pending. 2. Recent diagnosis metastatic non-small cell lung cancer-hospice transition. 3. Supratherapeutic INR-resolved. 4. Acute kidney injury-resolved with IV fluids. 5. Mild hyponatremia, suspect secondary to poor oral intake/hypovolemia- improved with IV fluids. 6. Hypertension-continue metoprolol. Hold lisinopril given acute kidney injury. 7. Hypothyroidism-continue Synthroid regimen. 8. Depression-continue trazodone, sertraline regimen. 9. Hyperlipidemia-continue statin. 10. Chronic microcytic anemia- stable. 11. Severe debility with recurrent falls at home- PT/OT. DVT prophylaxis-Coumadin. Discharge planning: Inpatient hospice versus SNF with hospice pending hospice evaluation. This patient was seen by JADA Antoine under the supervision of Dr. Andre. <Robert Andre - Last Filed: 07/27/18 15:56> Subjective: Seen and examined. Discussed with the patient and his in the room. Patient is very weak, diffuse muscle atrophy. Weak voice. Restless and drowsy and lethargic. Mild shortness of breath. Assessment and recommendation of Dr. Pearce conveyed to the patient and his that patient is not a candidate of chemotherapy and immunotherapy at present time with severe protein calorie malnutrition - Physical Exam General: Alert, Cooperative, Lethargic HEENT: Atraumatic, PERRLA, EOMI, Normocephalic Neck: Supple, No JVD, Negative Carotid Bruits Lungs: Diminished - Air entry similarly diminished in left lung., Rhonchi - Expiratory rhonchi present. Cardiovascular: Regular rate, Regular Rhythm, Normal S1, Normal S2, No murmurs Abdomen: Bowel Sounds Present, Soft, Non Tender, Non-Distended, - - Scaphoid abdomen Extremities: No clubbing Skin: No rashes, No breakdown Musculoskeletal: No Tenderness to Palpation of Joints or Extremities, Arthritic Changes, Cachexia, Muscle Wasting Neurological: Cranial nerves II-XII grossly intact, Deep Tendon Reflexes 2+/4 and Symmetrical, Neuro grossly intact, - - Muscle strength: Generalized weakness, 4/5. Diffuse muscle atrophy Vital Signs Temp Pulse Resp BP Pulse Ox 98.6 F 77 20 H 148/85 H 93 07/27/18 10:35 07/27/18 14:45 07/27/18 14:45 07/27/18 14:45 07/27/18 14:45 Oxygen Flow Rate (L/min) [4] 2 Oxygen Flow Rate (L/min) [3] 2 Oxygen Flow Rate (L/min) [2] 2 Oxygen Flow Rate (L/min) [1 ( 2 Initial Baseline)] Oxygen Flow Rate (L/min) 3 Oxygen Delivery Method [4] Nasal Cannula Oxygen Delivery Method [1 ( Nasal Cannula Initial Baseline)] Oxygen Delivery Method Room Air Weight: 211 lb 10.3 oz Body Mass Index (BMI) 27.1 Intake and Output for Last 24 Hours 07/25/18 07/26/18 07/27/18 23:59 23:59 23:59 Intake Total 3122 / 3122 2455 / 2455 Output Total 1375 / 1375 500 / 500 Balance 1747 / 1747 1955 / 195 Laboratory Tests Past 24 Hrs 07/27/18 07/27/18 07/27/18 07:00 07:00 07:00 WBC 6.1 RBC 3.62 L Hgb 9.1 L Hct 28.6 L MCV 79.0 L MCH 25.1 L MCHC 31.8 L RDW 15.0 H RDW Differential 43.6 Plt Count 350 MPV 8.8 PT 16.1 H INR 1.3 Sodium 133 L Potassium 4.3 Chloride 102 Carbon Dioxide 23.0 Anion Gap 8 BUN 15 Creatinine 0.64 L Estim Creat Clear Calc 83.34 Est GFR (MDRD) Af Amer 159 Est GFR (MDRD) Non-Af 132 BUN/Creatinine Ratio 23.3 H Glucose 106 Calcium 8.3 L Fluid Source Fluid Color Fluid Appearance Fluid WBC Fluid RBC Fluid Tot Cell Count Fld Polynuclear WBCs # Fld Polynuclear WBCs % Fluid Mononuclear WBCs Fld Mononuclear WBCs % Fluid Neutrophils Fluid Lymphocytes Fluid Monocytes Fl Pathologist Comment Fluid Glucose Fluid Total Protein Fluid LDH Fluid Comment 2 Miscellaneous Cytology 07/27/18 07/27/18 07/27/18 14:00 14:00 14:00 WBC RBC Hgb Hct MCV MCH MCHC RDW RDW Differential Plt Count MPV PT INR Sodium Potassium Chloride Carbon Dioxide Anion Gap BUN Creatinine Estim Creat Clear Calc Est GFR (MDRD) Af Amer Est GFR (MDRD) Non-Af BUN/Creatinine Ratio Glucose Calcium Fluid Source THORACENTESIS Fluid Color LT YEL Fluid Appearance SL CLDY Fluid WBC 1.023 Fluid RBC 0.05655 Fluid Tot Cell Count 1.029 Fld Polynuclear WBCs # 0.681 Fld Polynuclear WBCs % 66.6 Fluid Mononuclear WBCs 0.342 Fld Mononuclear WBCs % 33.4 Fluid Neutrophils 64 Fluid Lymphocytes 27 Fluid Monocytes 9 Fl Pathologist Comment May follow Fluid Glucose Pending Fluid Total Protein Pending Fluid LDH Pending Fluid Comment 2 SEE COMMENT Miscellaneous Cytology Pending Assessment/Plan This patient was seen in conjunction with SKILLED HELPER, Ketty. I have independently interviewed and examined the patient and reviewed pertinent history, examination findings, laboratory and plan of management. I have reviewed the note and agree with the documented findings with the few additional points. In brief, patient is admitted for acute hypoxic respiratory failure secondary to left pleural effusion, with history of metastatic non-small cell lung cancer. Patient had masslike density in the lingula with extension to the hilum previous CT scan and previous CT scan of May 2018 which progressed subsequently to occluded left main bronchus as seen in subsequent CT chest. patient had EGBUS which showed adenosquamous carcinoma. Subsequently patient had bronchial stent with laser ablation in left main bronchus. Patient had 5 pound weight loss in last [address] Pearce discussed with the patient and his and assessment is patient NOT currently candidate for chemotherapy or immunotherapy treatment because of severe protein calorie malnutrition and comorbid conditions. Patient had left-sided ultrasound-guided thoracocentesis done today. Patient had only about 10 cc fluid removed. Fluid chemistry is pending. Cell count shows total WBC about 1000 and RBC 2000 cells. Polynuclear 66%, mononuclear 33%. Monocytes 9. Patient's is agreeable to hospice consult. Hospice has been consulted. I have discussed my assessment with SKILLED HELPERKetty and orders have been reviewed. Code Visit Inpatient E&M: 32234 Subs Hosp L3
--- NOTE | 2018-07-27 14:55 | PCM.DC.SUM ---
<Ketty Wallace - Last Filed: 07/27/18 16:05> Discharge Date and Diagnosis Date of Admission: 07/25/18 Date of Discharge: 07/27/18 - Primary Discharge Diagnosis 1. Acute hypoxic respiratory failure secondary to left pleural effusion suspected as a result of recent diagnosis metastatic non-small cell lung cancer 2. Recent diagnosis metastatic non-small cell lung cancer, not a candidate for treatment 3. Supratherapeutic INR 4. Acute kidney injury 5. Mild hyponatremia 6. Severe debility with recurrent falls at home 7. Severe protein calorie malnutrition 8. Hospice transition - Secondary Discharge Diagnosis Chronic Problems (Last Reviewed 06/13/18 @ 15:04 by Scarlet Smith, BEHZAD-C) Non-small cell cancer of left lung (Chronic) Lung mass (Chronic) Hemoptysis, unspecified (Chronic) HTN (hypertension) (Chronic) HLD (hyperlipidemia) (Chronic) Hypothyroidism (Chronic) Chronic pain syndrome (Chronic) Carotid arterial disease (Chronic) TIA (transient ischemic attack) (Chronic) Oropharyngeal dysphagia (Chronic) Throat cancer (Chronic) Hospital Course and Treatment Imaging Results: Diagnostic Data Chest Ultrasound 07/26/18 12:55 IMPRESSION: Small left pleural effusion. Electronically Signed: Josh Rush MD at 9:37 EST Tel [phone], Service support , Dr. Pearce- Oncology Dr. Underwood- Pulmonary Medicine Operations: None Procedures: Thoracentesis Summary of Care Provided: The patient is a 67 year old M admitted 07/25/2018 due to shortness of breath. 1. Acute hypoxic respiratory failure secondary to left pleural effusion suspected as a result of recently diagnosed metastatic non-small cell lung cancer-Pulmonary consulted. Following with [facility] as outpatient, consulted. Had not yet undergone chemotherapy or radiation. This was being discussed at initial appointment with Dr. Pearce. Patient underwent ultrasound-guided thoracentesis with only 10 cc fluid removed. Per oncology, patient is not a candidate for chemotherapy/radiation. Patient and patient's agreeable to hospice at this time. 2. Recent diagnosis metastatic non-small cell lung cancer-hospice transition. 3. Supratherapeutic INR-resolved. 4. Acute kidney injury-resolved with IV fluids. 5. Mild hyponatremia, suspect secondary to poor oral intake/hypovolemia-improved with IV fluids. 6. Hypertension-continue metoprolol. Hold lisinopril given acute kidney injury. 7. Hypothyroidism-continue Synthroid regimen. 8. Depression-continue trazodone, sertraline regimen. 9. Hyperlipidemia-continue statin. 10. Chronic microcytic anemia- stable. 11. Severe debility with recurrent falls at home- PT/OT. General: Alert, Cooperative HEENT: Atraumatic, PERRLA, EOMI, Normocephalic Neck: Supple, No JVD, Negative Carotid Bruits Lungs: Clear to auscultation, Diminished Cardiovascular: Regular rate, Regular Rhythm, Normal S1, Normal S2, No murmurs Abdomen: Bowel Sounds Present, Soft, Non Tender, Non-Distended Extremities: No clubbing, No cyanosis, No edema, Capillary Refill Less than 3 Seconds Skin: No rashes, No breakdown Musculoskeletal: No Tenderness to Palpation of Joints or Extremities Neurological: Cranial nerves II-XII grossly intact, Neuro grossly intact Psych/Mental Status: Normal Affect, Appropriate Patient seen and examined prior to discharge. Physical assessment as noted above. This patient was seen by JADA Antoine under the supervision of Dr. Andre. - Physical Exam Vital Signs Temp Pulse Resp BP Pulse Ox 98.6 F 77 20 H 148/85 H 93 07/27/18 10:35 07/27/18 14:45 07/27/18 14:45 07/27/18 14:45 07/27/18 14:45 Oxygen Flow Rate (L/min) 3 Oxygen Delivery Method Room Air Weight: 211 lb 10.3 oz Body Mass Index (BMI) 27.1 Intake and Output for Last 24 Hours 07/25/18 07/26/18 07/27/18 23:59 23:59 23:59 Intake Total 3122 / 3122 2455 / 2455 Output Total 1375 / 1375 500 / 500 Balance 1747 / 1747 1955 / 1955 Laboratory Tests Past 24 Hrs 07/27/18 07/27/18 07/27/18 07:00 07:00 07:00 WBC 6.1 RBC 3.62 L Hgb 9.1 L Hct 28.6 L MCV 79.0 L MCH 25.1 L MCHC 31.8 L RDW 15.0 H RDW Differential 43.6 Plt Count 350 MPV 8.8 PT 16.1 H INR 1.3 Sodium 133 L Potassium 4.3 Chloride 102 Carbon Dioxide 23.0 Anion Gap 8 BUN 15 Creatinine 0.64 L Estim Creat Clear Calc 83.34 Est GFR (MDRD) Af Amer 159 Est GFR (MDRD) Non-Af 132 BUN/Creatinine Ratio 23.3 H Glucose 106 Calcium 8.3 L Fluid Source Fluid Color Fluid Appearance Fluid WBC Fluid RBC Fluid Tot Cell Count Fl Pathologist Comment Fluid Glucose Fluid Total Protein Fluid LDH Fluid Comment 2 Miscellaneous Cytology 07/27/18 07/27/18 07/27/18 14:00 14:00 14:00 WBC RBC Hgb Hct MCV MCH MCHC RDW RDW Differential Plt Count MPV PT INR Sodium Potassium Chloride Carbon Dioxide Anion Gap BUN Creatinine Estim Creat Clear Calc Est GFR (MDRD) Af Amer Est GFR (MDRD) Non-Af BUN/Creatinine Ratio Glucose Calcium Fluid Source Pending Fluid Color Pending Fluid Appearance Pending Fluid WBC Pending Fluid RBC Pending Fluid Tot Cell Count Pending Fl Pathologist Comment Pending Fluid Glucose Pending Fluid Total Protein Pending Fluid LDH Pending Fluid Comment 2 Pending Miscellaneous Cytology Pending Home Medications: Medications to take at Discharge Acetaminophen Liquid [Tylenol Liquid] 20 ml PO DAILY 05/30/18 Atorvastatin Calcium [Lipitor] 40 mg PO DAILY 05/30/18 Baclofen 5 mg PO BID 05/30/18 Carbamazepine [Carbamazepine ER] 100 mg PO QHS 05/30/18 Gabapentin 6 ml PO QHS 05/30/18 Levothyroxine [Synthroid] 75 mcg PO DAILY 05/30/18 Lisinopril [Zestril] 20 mg PO DAILY 05/30/18 Mirtazapine 15 mg PO QHS 05/30/18 Oxycodone [Oxyir] 20 - 40 mg PO TID 05/30/18 Sertraline HCl [Zoloft] 200 mg PO DAILY 05/30/18 Albuterol Aerosols [Ventolin Aerosols] 2.5 mg INHALATION Q4HWA.RT #90 vial.neb. 06/01/18 Ketoconazole [Nizoral] 1 applic TOPICAL BID 06/30/18 Acetylcysteine 4 ml IH Q6H 07/25/18 Diazepam 2 mg PO TID PRN 07/25/18 Melatonin 9 mg PO QHS 07/25/18 Metoprolol Tartrate [Lopressor (Beta Darwin)] 50 mg PO BID 07/25/18 Warfarin [Coumadin (PBKC)] 2 mg PO DAILY 07/25/18 traZODone [Desyrel] 50 mg PO QHS 07/25/18 Primary Care Physician: Brandan Pino MD [Primary Care Provider] - Disposition: Hospice Medical Facility Minutes spent on discharge:: 35 Patient Condition:: Guarded Medical Necessity - Tobacco Use Smoking Status: Current every day smoker Meaningful Use Info Meaningful Use Diagnoses (Choose all that apply): None applicable <ThaiRobert - Last Filed: 07/29/18 18:16> Discharge Date and Diagnosis - Secondary Discharge Diagnosis Chronic Problems (Last Reviewed 06/13/18 @ 15:04 by Scarlet Smith NP-C) Non-small cell cancer of left lung (Chronic) Lung mass (Chronic) Hemoptysis, unspecified (Chronic) HTN (hypertension) (Chronic) HLD (hyperlipidemia) (Chronic) Hypothyroidism (Chronic) Chronic pain syndrome (Chronic) Carotid arterial disease (Chronic) TIA (transient ischemic attack) (Chronic) Oropharyngeal dysphagia (Chronic) Throat cancer (Chronic) Hospital Course and Treatment Summary of Care Provided: This patient was seen in conjunction with LENS MOLD SETTERKetty. I have independently interviewed and examined the patient and reviewed pertinent history, examination findings, laboratory and plan of management. I have reviewed the note and agree with the documented findings with the few additional points. In brief, patient is admitted for acute hypoxic respiratory failure secondary to left pleural effusion, with history of metastatic non-small cell lung cancer. Patient had masslike density in the lingula with extension to the hilum previous CT scan and previous CT scan of May 2018 which progressed subsequently to occluded left main bronchus as seen in subsequent CT chest. patient had EGBUS which showed adenosquamous carcinoma. Subsequently patient had bronchial stent with laser ablation in left main bronchus. Patient had 5 pound weight loss in last [address] Pearce discussed with the patient and his and assessment is patient NOT currently candidate for chemotherapy or immunotherapy treatment because of severe protein calorie malnutrition and comorbid conditions. Patient had left-sided ultrasound-guided thoracocentesis done today. Patient had only about 10 cc fluid removed. Fluid chemistry is pending. Cell count shows total WBC about 1000 and RBC 2000 cells. Polynuclear 66%, mononuclear 33%. Monocytes 9. Light's criteria suggestive of transudate. Hospice was consulted. Patient accepted for inpatient hospice Patient was transferred to inpatient service. I have discussed my assessment with LENS MOLD SETTERKetty and orders have been reviewed. [] Subjective: was seen and examined. Patient had palliative care consult done. Patient and his agreed for DNR CC Patient accepted for home hospice care. Objective: General: Alert, Cooperative, Lethargic HEENT: Atraumatic, PERRLA, EOMI, Normocephalic Neck: Supple, No JVD, Negative Carotid Bruits Lungs: Diminished - Air entry similarly diminished in left lung., Bilateral diffuse rhonchi - Expiratory rhonchi present. Cardiovascular: Regular rate, Regular Rhythm, Normal S1, Normal S2, No murmurs Abdomen: Bowel Sounds Present, Soft, Non Tender, Non-Distended, - - Scaphoid abdomen Extremities: No clubbing Skin: No rashes, No breakdown Musculoskeletal: No Tenderness to Palpation of Joints or Extremities, Arthritic Changes, Cachexia, Muscle Wasting Neurological: Cranial nerves II-XII grossly intact, Deep Tendon Reflexes 2+/4 and Symmetrical, Neuro grossly intact,Generalized weakness, 4/5. Diffuse muscle atrophy - Physical Exam Vital Signs Temp Pulse Resp BP Pulse Ox 97.6 F L 84 20 H 155/87 H 97 07/27/18 16:20 07/27/18 16:20 07/27/18 16:20 07/27/18 16:20 07/27/18 16:20 Oxygen Flow Rate (L/min) [4] 2 Oxygen Flow Rate (L/min) [3] 2 Oxygen Flow Rate (L/min) [2] 2 Oxygen Flow Rate (L/min) [1 ( 2 Initial Baseline)] Oxygen Flow Rate (L/min) 2 Oxygen Delivery Method [4] Nasal Cannula Oxygen Delivery Method [1 ( Nasal Cannula Initial Baseline)] Oxygen Delivery Method Nasal Cannula Weight: 211 lb 10.3 oz Body Mass Index (BMI) 27.1 Intake and Output for Last 24 Hours 07/27/18 07/28/18 07/29/18 23:59 23:59 23:59 Intake Total 2673 / 2673 Output Total 750 / 750 Balance 1923 / 1923 Microbiology Past 72 Hours 07/25/18 20:28 Blood Culture - Preliminary Blood Culture (Wb) - Left Hand No growth in 48 hours. 07/25/18 20:51 Blood Culture - Preliminary Blood Culture (Wb) - Left Forearm No growth in 48 hours. Code Visit Inpatient E&M: 45135 Disch Hosp
[2018-07-27 15:01] LABS: Body Fluid Mononuclear WBC # 0.342 10^3/uL; Body Fluid Mononuclear WBC % 33.4 %; Body Fluid Polynuclear WBC # 0.681 10^3/uL; Body Fluid Polynuclear WBC % 66.6 %; Body Fluid Total Cells Counted 1.029 10^3/ul; White Blood Count/Body Fluid 1.023 10^3/uL
[2018-07-27 15:07] LABS: Auto B Fluid Analyzer BKGD Ct COUNTS W/IN LIMITS (W/IN LIMITS)
[2018-07-27 15:08] LABS: Appearance/Body Fluid SL CLDY; Body Fluid QC Type(s) BF2Q; Color/Body Fluid LT YEL; Source- Body Fluid THORACENTESIS
--- NOTE | 2018-07-27 15:09 | DS.PCM_ITS ---
<Ketty Wallace - Last Filed: 07/27/18 16:05> Discharge Date and Diagnosis Date of Admission: 07/25/18 Date of Discharge: 07/27/18 - Primary Discharge Diagnosis 1. Acute hypoxic respiratory failure secondary to left pleural effusion suspected as a result of recent diagnosis metastatic non-small cell lung cancer 2. Recent diagnosis metastatic non-small cell lung cancer, not a candidate for treatment 3. Supratherapeutic INR 4. Acute kidney injury 5. Mild hyponatremia 6. Severe debility with recurrent falls at home 7. Severe protein calorie malnutrition 8. Hospice transition - Secondary Discharge Diagnosis Chronic Problems (Last Reviewed 06/13/18 @ 15:04 by Scarlet Smith, BEHZAD-C) Non-small cell cancer of left lung (Chronic) Lung mass (Chronic) Hemoptysis, unspecified (Chronic) HTN (hypertension) (Chronic) HLD (hyperlipidemia) (Chronic) Hypothyroidism (Chronic) Chronic pain syndrome (Chronic) Carotid arterial disease (Chronic) TIA (transient ischemic attack) (Chronic) Oropharyngeal dysphagia (Chronic) Throat cancer (Chronic) Hospital Course and Treatment Imaging Results: Diagnostic Data Chest Ultrasound 07/26/18 12:55 IMPRESSION: Small left pleural effusion. Electronically Signed: Josh Rush MD at 9:37 EST Tel [phone], Service support , Dr. Pearce- Oncology Dr. Underwood- Pulmonary Medicine Operations: None Procedures: Thoracentesis Summary of Care Provided: The patient is a 67 year old M admitted 07/25/2018 due to shortness of breath. 1. Acute hypoxic respiratory failure secondary to left pleural effusion suspected as a result of recently diagnosed metastatic non-small cell lung cancer-Pulmonary consulted. Following with [facility] as outpatient, consulted. Had not yet undergone chemotherapy or radiation. This was being discussed at initial appointment with Dr. Pearce. Patient underwent ultrasound-guided thoracentesis with only 10 cc fluid removed. Per oncology, patient is not a candidate for chemotherapy/radiation. Patient and patient's agreeable to h ospice at this time. 2. Recent diagnosis metastatic non-small cell lung cancer-hospice transition. 3. Supratherapeutic INR-resolved. 4. Acute kidney injury-resolved with IV fluids. 5. Mild hyponatremia, suspect secondary to poor oral intake/hypovolemia- improved with IV fluids. 6. Hypertension-continue metoprolol. Hold lisinopril given acute kidney injury. 7. Hypothyroidism-continue Synthroid regimen. 8. Depression-continue trazodone, sertraline regimen. 9. Hyperlipidemia-continue statin. 10. Chronic microcytic anemia- stable. 11. Severe debility with recurrent falls at home- PT/OT. General: Alert, Cooperative HEENT: Atraumatic, PERRLA, EOMI, Normocephalic Neck: Supple, No JVD, Negative Carotid Bruits Lungs: Clear to auscultation, Diminished Cardiovascular: Regular rate, Regular Rhythm, Normal S1, Normal S2, No murmurs Abdomen: Bowel Sounds Present, Soft, Non Tender, Non-Distended Extremities: No clubbing, No cyanosis, No edema, Capillary Refill Less than 3 Seconds Skin: No rashes, No breakdown Musculoskeletal: No Tenderness to Palpation of Joints or Extremities Neurological: Cranial nerves II-XII grossly intact, Neuro grossly intact Psych/Mental Status: Normal Affect, Appropriate Patient seen and examined prior to discharge. Physical assessment as noted above. This patient was seen by JADA Antoine under the supervision of Dr. Andre. - Physical Exam Vital Signs Temp Pulse Resp BP Pulse Ox 98.6 F 77 20 H 148/85 H 93 07/27/18 10:35 07/27/18 14:45 07/27/18 14:45 07/27/18 14:45 07/27/18 14:45 Oxygen Flow Rate (L/min) 3 Oxygen Delivery Method Room Air Weight: 211 lb 10.3 oz Body Mass Index (BMI) 27.1 Intake and Output for Last 24 Hours 07/25/18 07/26/18 07/27/18 23:59 23:59 23:59 Intake Total 3122 / 3122 2455 / 2455 Output Total 1375 / 1375 500 / 500 Balance 1747 / 1747 1955 / 1955 Laboratory Tests Past 24 Hrs 07/27/18 07/27/18 07/27/18 07:00 07:00 07:00 WBC 6.1 RBC 3.62 L Hgb 9.1 L Hct 28.6 L MCV 79.0 L MCH 25.1 L MCHC 31.8 L RDW 15.0 H RDW Differential 43.6 Plt Count 350 MPV 8.8 PT 16.1 H INR 1.3 Sodium 133 L Potassium 4.3 Chloride 102 Carbon Dioxide 23.0 Anion Gap 8 BUN 15 Creatinine 0.64 L Estim Creat Clear Calc 83.34 Est GFR (MDRD) Af Amer 159 Est GFR (MDRD) Non-Af 132 BUN/Creatinine Ratio 23.3 H Glucose 106 Calcium 8.3 L Fluid Source Fluid Color Fluid Appearance Fluid WBC Fluid RBC Fluid Tot Cell Count Fl Pathologist Comment Fluid Glucose Fluid Total Protein Fluid LDH Fluid Comment 2 Miscellaneous Cytology 07/27/18 07/27/18 07/27/18 14:00 14:00 14:00 WBC RBC Hgb Hct MCV MCH MCHC RDW RDW Differential Plt Count MPV PT INR Sodium Potassium Chloride Carbon Dioxide Anion Gap BUN Creatinine Estim Creat Clear Calc Est GFR (MDRD) Af Amer Est GFR (MDRD) Non-Af BUN/Creatinine Ratio Glucose Calcium Fluid Source Pending Fluid Color Pending Fluid Appearance Pending Fluid WBC Pending Fluid RBC Pending Fluid Tot Cell Count Pending Fl Pathologist Comment Pending Fluid Glucose Pending Fluid Total Protein Pending Fluid LDH Pending Fluid Comment 2 Pending Miscellaneous Cytology Pending Home Medications: Medications to take at Discharge Acetaminophen Liquid [Tylenol Liquid] 20 ml PO DAILY 05/30/18 Atorvastatin Calcium [Lipitor] 40 mg PO DAILY 05/30/18 Baclofen 5 mg PO BID 05/30/18 Carbamazepine [Carbamazepine ER] 100 mg PO QHS 05/30/18 Gabapentin 6 ml PO QHS 05/30/18 Levothyroxine [Synthroid] 75 mcg PO DAILY 05/30/18 Lisinopril [Zestril] 20 mg PO DAILY 05/30/18 Mirtazapine 15 mg PO QHS 05/30/18 Oxycodone [Oxyir] 20 - 40 mg PO TID 05/30/18 Sertraline HCl [Zoloft] 200 mg PO DAILY 05/30/18 Albuterol Aerosols [Ventolin Aerosols] 2.5 mg INHALATION Q4HWA.RT #90 vial.neb. 06/01/18 Ketoconazole [Nizoral] 1 applic TOPICAL BID 06/30/18 Acetylcysteine 4 ml IH Q6H 07/25/18 Diazepam 2 mg PO TID PRN 07/25/18 Melatonin 9 mg PO QHS 07/25/18 Metoprolol Tartrate [Lopressor (Beta Darwin)] 50 mg PO BID 07/25/18 Warfarin [Coumadin ([facility])] 2 mg PO DAILY 07/25/18 traZODone [Desyrel] 50 mg PO QHS 07/25/18 Primary Care Physician: Brandan Pino MD [Primary Care Provider] - Disposition: Hospice Medical Facility Minutes spent on discharge:: 35 Patient Condition:: Guarded Medical Necessity - Tobacco Use Smoking Status: Current every day smoker Meaningful Use Info Meaningful Use Diagnoses (Choose all that apply): None applicable <Robert Andre - Last Filed: 07/29/18 18:16> Discharge Date and Diagnosis - Secondary Discharge Diagnosis Chronic Problems (Last Reviewed 06/13/18 @ 15:04 by Scarlet Smith NP-C) Non-small cell cancer of left lung (Chronic) Lung mass (Chronic) Hemoptysis, unspecified (Chronic) HTN (hypertension) (Chronic) HLD (hyperlipidemia) (Chronic) Hypothyroidism (Chronic) Chronic pain syndrome (Chronic) Carotid arterial disease (Chronic) TIA (transient ischemic attack) (Chronic) Oropharyngeal dysphagia (Chronic) Throat cancer (Chronic) Hospital Course and Treatment Summary of Care Provided: This patient was seen in conjunction with BUSINESS COORDINATORKetty. I have independently interviewed and examined the patient and reviewed pertinent history, examination findings, laboratory and plan of management. I have reviewed the note and agree with the documented findings with the few additional points. In brief, patient is admitted for acute hypoxic respiratory failure secondary to left pleural effusion, with history of metastatic non-small cell lung cancer. Patient had masslike density in the lingula with extension to the hilum previous CT scan and previous CT scan of May 2018 which progressed subsequently to occluded left main bronchus as seen in subsequent CT chest. patient had EGBUS which showed adenosquamous carcinoma. Subsequently patient had bronchial stent with laser ablation in left main bronchus. Patient had 5 pound weight loss in last [address] Pearce discussed with the patient and his and assessment is patient NOT currently candidate for chemotherapy or immunotherapy treatment because of severe protein calorie malnutrition and comorbid conditions. Patient had left-sided ultrasound-guided thoracocentesis done today. Patient had only about 10 cc fluid removed. Fluid chemistry is pending. Cell count shows total WBC about 1000 and RBC 2000 cells. Polynuclear 66%, mononuclear 33%. Monocytes 9. Light's criteria suggestive of transudate. Hospice was consulted. Patient accepted for inpatient hospice Patient was transferred to inpatient service. I have discussed my assessment with BUSINESS COORDINATORKetty and orders have been reviewed. [] Subjective: was seen and examined. Patient had palliative care consult done. Patient and his agreed for DNR CC Patient accepted for home hospice care. Objective: General: Alert, Cooperative, Lethargic HEENT: Atraumatic, PERRLA, EOMI, Normocephalic Neck: Supple, No JVD, Negative Carotid Bruits Lungs: Diminished - Air entry similarly diminished in left lung., Bilateral diffuse rhonchi - Expiratory rhonchi present. Cardiovascular: Regular rate, Regular Rhythm, Normal S1, Normal S2, No murmurs Abdomen: Bowel Sounds Present, Soft, Non Tender, Non-Distended, - - Scaphoid abdomen Extremities: No clubbing Skin: No rashes, No breakdown Musculoskeletal: No Tenderness to Palpation of Joints or Extremities, Arthritic Changes, Cachexia, Muscle Wasting Neurological: Cranial nerves II-XII grossly intact, Deep Tendon Reflexes 2+/4 and Symmetrical, Neuro grossly intact,Generalized weakness, 4/5. Diffuse muscle atrophy - Physical Exam Vital Signs Temp Pulse Resp BP Pulse Ox 97.6 F L 84 20 H 155/87 H 97 07/27/18 16:20 07/27/18 16:20 07/27/18 16:20 07/27/18 16:20 07/27/18 16:20 Oxygen Flow Rate (L/min) [4] 2 Oxygen Flow Rate (L/min) [3] 2 Oxygen Flow Rate (L/min) [2] 2 Oxygen Flow Rate (L/min) [1 ( 2 Initial Baseline)] Oxygen Flow Rate (L/min) 2 Oxygen Delivery Method [4] Nasal Cannula Oxygen Delivery Method [1 ( Nasal Cannula Initial Baseline)] Oxygen Delivery Method Nasal Cannula Weight: 211 lb 10.3 oz Body Mass Index (BMI) 27.1 Intake and Output for Last 24 Hours 07/27/18 07/28/18 07/29/18 23:59 23:59 23:59 Intake Total 2673 / 2673 Output Total 750 / 750 Balance 1923 / 1923 Microbiology Past 72 Hours 07/25/18 20:28 Blood Culture - Preliminary Blood Culture (Wb) - Left Hand No growth in 48 hours. 07/25/18 20:51 Blood Culture - Preliminary Blood Culture (Wb) - Left Forearm No growth in 48 hours. Code Visit Inpatient E&M: 75052 Disch Hosp
[2018-07-27 15:21] LABS: Lymphocytes 27 %; Monocytes 9 %; Neutrophil (Segs) 64 %
[2018-07-27 16:18] LABS: ALB/GLOB Ratio 0.7 RATIO (0.9-2.4); Globulin 3.8 g/dL (2.2-4.2); LDH 180 U/L (87-241); Protein, Total 6.3 g/dL (6.4-8.2)
[2018-07-27 16:33] LABS: Glucose, Body Fluid 127 mg/dL (40-70); Protein, Body Fluid 2.1 g/dL (Not Establ.)
--- NOTE | 2018-07-27 16:41 | NURSING ---
called report to Hospice, spoke to STAURT Hinton
[2018-07-30 10:00] LABS: Pathologist Comment/Body Fluid Reviewed
[2018-08-03 15:24] LABS: LDH,Body Fluid 107 Units/l (Not Establ.)
== END 2018-07-27 19:05 | disposition hospice, inpatient (51) | DRG 180 ==
LOC: ED 19:27 → PCU 21:29
PROVIDERS: Internal Medicine Critical Care Medicine; Nurse Practitioner Family; Admitting Provider Student in an Organized Health Care Education/Training Program; Emergency Provider Emergency Medicine; Family Provider Family Medicine; PCP Family Medicine; Referring Provider Internal Medicine Hematology & Oncology; Visit Provider Internal Medicine
DX: C34.82 Malignant neoplasm of overlapping sites of left bronchus and lung (principal); J96.01 Acute respiratory failure with hypoxia; E43 Unspecified severe protein-calorie malnutrition; N17.9 Acute kidney failure, unspecified; E87.1 Hypo-osmolality and hyponatremia; J91.8 Pleural effusion in other conditions classified elsewhere; E86.0 Dehydration; R79.1 Abnormal coagulation profile; I48.91 Unspecified atrial fibrillation; D50.9 Iron deficiency anemia, unspecified; E03.9 Hypothyroidism, unspecified; I10 Essential (primary) hypertension; F32.9 Major depressive disorder, single episode, unspecified; Z66 Do not resuscitate; F17.210 Nicotine dependence, cigarettes, uncomplicated; E78.5 Hyperlipidemia, unspecified; R29.6 Repeated falls; R53.81 Other malaise; Z85.818 Personal history of malignant neoplasm of other sites of lip, oral cavity, and pharynx; Z79.01 Long term (current) use of anticoagulants; Z79.899 Other long term (current) drug therapy; Z68.27 Body mass index [BMI] 27.0-27.9, adult; Z92.21 Personal history of antineoplastic chemotherapy; Z92.3 Personal history of irradiation; Z51.5 Encounter for palliative care; G89.4 Chronic pain syndrome; R13.12 Dysphagia, oropharyngeal phase
CPT/HCPCS: 32555; 36415; 36600; 71045; 71046; 76604; 80048; 81001; 82803; 82945; 83605; 83615; 84156; 84157; 84443; 84484; 85025; 85027; 85610; 87040; 88108; 88305; 88313; 89050; 93005; 94640; 97802; 99285; 99406; J7030; J7040; J7050; A4216